=== PATIENT | male | born 1955 | race Caucasian/White ===

== ENCOUNTER 2017-06-20 18:03 | Inpatient (IN) ==
[2017-06-21] MEDS ORDERED: Naloxone 0.4 MG/ML INJ IVP PRN (00:23)
[2017-06-21] MEDS ORDERED: D5% in Water 1,000 ML IVC PRN (00:28)
[2017-06-21] MEDS ORDERED: Dextrose Gel 15 GM PO PRN ×2 (00:28)
[2017-06-21] MEDS ORDERED: *HR* Dextrose 50 % in Water (Syg) 50 ML SYRINGE IVP PRN (00:28)
--- NOTE | 2017-06-21 01:00 | Internal Med History&Physical ---
<Pawan Luu Paco - Last Filed: 06/21/17 01:21> Date of Encounter: 06/21/17 Time of Encounter: 00:10 Assessment and Plan (1) Cellulitis of right lower extremity Current visit: Yes Status: Acute Appearance of right lower extremity consistent with cellulitis, with concern for osteomyelitis X-ray at [facility] shows soft tissue swelling at the dorsum of the foot and around the third toe, with a comminuted fracture of the base of the third proximal phalanx. Concern for osteomyelitis Labs from [facility] reviewed - CBC unremarkable. CMP shows mild hypokalemia at 3.3, but otherwise unremarkable. Kidney function normal Patient is afebrile, no leukocytosis, no crepitus noted Will obtain CT of the right foot for further evaluation Will obtain labs in preparation for possible surgery in the morning, and keep patient nothing by mouth for now Patient received 1 dose of clindamycin, we will continue clindamycin here Patient follows with Dr. Perez - will consult podiatry for further evaluation (2) Osteomyelitis of right foot Current visit: Yes Status: Suspected X-ray concerning for osteomyelitis with a comminuted fracture at the base of the third right proximal phalanx Will obtain CT with contrast for further evaluation Continue antibiotics as above Qualifiers: Osteomyelitis type: other acute Qualified Code(s): M86.171 - Other acute osteomyelitis, right ankle and foot (3) Diabetes mellitus Current visit: Yes Status: Acute Will hold home meds. Low dose sliding scale insulin with accuchecks Qualifiers: Diabetes mellitus type: type 2 Diabetes mellitus long term care phlebotomist insulin use: with fci use Diabetes mellitus complication status: with unspecified complications Qualified Code(s): E11.8 - Type 2 diabetes mellitus with unspecified complications; Z79.4 - bed bug exterminator (current) use of insulin; Z79.4 - snf (current) use of insulin; Z79.4 - snf (current) use of insulin; Z79.4 - bed bug exterminator (current) use of insulin (4) Chronic pain Current visit: Yes Status: Acute Patient reports that he has a spinal stimulator in place. Will continue home dose of [place] as needed Qualifiers: Chronic pain type: other chronic pain Qualified Code(s): G89.29 - Other chronic pain (5) Hypertension Current visit: Yes Status: Acute Normotensive. Continue home meds Qualifiers: Hypertension type: essential hypertension Qualified Code(s): I10 - Essential (primary) hypertension (6) Hypokalemia Current visit: Yes Status: Acute Potassium 3.3. Will replace potassium (7) Tobacco use Current visit: Yes Status: Acute Nicotine patch. Encourage the patient to quit smoking (8) DVT prophylaxis Current visit: Yes Status: Acute No medication at this time with potential surgery in AM Place SCD on left leg Internal Medicine - H&P: HPI Chief complaint: Right toe/foot swelling Admitted From: Hospital to Hospital Transfer History of present illness: Mr. Chauhan is a 61 year old male with PMH of diabetes, hypertension, hyperlipidemia, and chronic pain with spinal stimulator in place, presented to [facility] ED with a one-week history of increasing swelling, redness, and warmth of his right foot and right middle toe. Over the past several days he has been noting some new drainage around his middle toe. He states that it is not very painful. He is able to ambulate well. He denies fevers, chills, leg pain, new numbness/tingling, or prolonged immobilization. He states that about 2 months ago he stepped on a screw that went into the ball of his foot, and he was hospitalized with antibiotics. He reports that his symptoms resolved after that event. He states that he follows with Dr. Perez , and he recommended transfer to [facility] for further management and continuity of care. He denies other symptoms, denies chest pain , dyspnea, cough, abdominal pain, change in bowels, or dysuria. Past Med Surg Social Fam HX - Family History Mother Living Status: Hx Family Cardiac Disorders: Yes Hx Family Endocrine Disorder: Yes (diabetes) Internal Medicine - H&P: Meds Dapagliflozin Propanediol [Farxiga] 5 mg PO DAILY 06/21/17 [History] Famotidine [Heartburn Prevention] 20 mg PO BID 06/21/17 [History] Glimepiride [Amaryl] 4 mg PO DAILY 06/21/17 [History] HYDROcodone/Acet 10/325 mg [[place] 10-325 mg] 10 mg PO Q6HR PRN 06/21/17 [History ] Linagliptin [Tradjenta] 5 mg PO DAILY 06/21/17 [History] Metformin HCl [Glucophage] 1,000 mg PO BID 06/21/17 [History] Simvastatin [Zocor] 20 mg PO HS 06/21/17 [History] amLODIPine [Norvasc] 10 mg PO DAILY 06/21/17 [History] hydroCHLOROthiazide [Hydrochlorothiazide] 25 mg PO DAILY 06/21/17 [History] 3 Allergy/AdvReac Type Severity Reaction Status Date / Time No Known Allergies Allergy Verified 06/21/17 00:51 All Systems PM: A 10-system review of systems was performed and is negative for pertinent findings except as documented above in the HPI. - Constitutional Vitals: Temp Pulse Resp BP Pulse Ox 97.6 F 66 16 124/79 94 06/21/17 00:15 06/21/17 00:15 06/21/17 00:15 06/21/17 00:15 06/21/17 00:15 General appearance: Present: A&O X 3, no acute distress, answers questions appropriately - Head Head exam: Present: atraumatic, normocephalic - Eye Eye exam: Present: EOMI, PERRL, conjuntiva pink, sclera anicteric - Neck Neck exam general surgery: Present: supple, trachea midline. Absent: lymphadenopathy - Respiratory Respiratory exam: Present: wheezes (Mild wheezes in bilateral bases). Absent: accessory muscle use, rales, rhonchi - Cardiovascular Cardiovascular exam: Present: RRR, +S1, +S2. Absent: diastolic murmur, systolic murmur - GI/Abdominal GI/Abdominal exam: Present: normal bowel sounds, soft, no peritoneal signs. Absent: distended, tenderness - Extremities Exam Extremities exam: Present: normal capillary refill, pedal edema, warm, radial pulses palpable and symmetrical. Absent: calf tenderness, cyanotic, normal inspection Additional comments: Right foot and ankle with increased warmth, erythema, and edema, poor skin turgor. There is a yellow/white draining substance around the base of the third right toe, with moist skin. No crepitus noted. Pulses +2/4 bilaterally. Mild edema in left LE as well, but the right LE is worse. - Neurological Exam Neurological exam: Present: CN II-XII intact, oriented X3, no focal deficits. Absent: facial droop, speech deficit - Skin Skin exam: Present: dry, intact <Yordy Mcfadden - Last Filed: 06/21/17 02:23> Date of Encounter: 06/21/17 Internal Medicine - H&P: HPI History of present illness: Mr. Chauhan is a 61 year old male All Systems PM: A 10-system review of systems was performed and is negative for pertinent findings except as documented above in the HPI. - Constitutional Vitals: Temp Pulse Resp BP Pulse Ox 97.6 F 66 16 124/79 94 06/21/17 00:15 06/21/17 00:15 06/21/17 00:15 06/21/17 00:15 06/21/17 00:15 - Attending Attestation I examined this patient and my medical decision-making was reviewed with the Resident Physician. I agree with the documented findings, disposition and treatment plan as described except to the extent set forth below. Patient presents with swelling and redness of the right foot that has been worsening in the past few days. He denies any systemic symptoms such as fever or chills or feeling unwell. He visits with Dr. perez podiatry where he had a previous foot infection before that have been treated. He does have diabetes and takes oral diabetic medicines. He presented to his local ER at [facility] due to his 's concern of persistent swelling needing medical evaluation with podiatry. He was advised to transfer the [facility] for podiatry review by Dr. perez. He had been given IV clindamycin at outside hospital prior to transfer X-ray of the soft tissue at outside hospital found comminuted fracture of the third phalanx on the right concerning for possible osteomyelitis. On review he does have a history of low back pain with nerve damage status post spinal stimulator placement and is unable to get an MRI ROS 14 point review of systems reviewed as best as possible given presentation. Pertinent positive or negative as per HPI or otherwise reviewed as negative General - AAO x 3 Psych - Appropriate affect/speech. No agitation Eyes - OLIVIA. Eye lids intact. No scleral icterus Heart - Sinus. RRR. S1 and S2 present. No added HS/murmurs appreciated. No elevated JVD appreciated. Lung - Adequate air entry b/l, No crackles/wheezes appreciated GI - Soft, non-tender. No hepatosplenomegaly/ascites. BS+ - No CVA/suprapubic tenderness or palpable bladder distension Skin - right foot with swelling, erythema, warmth. A/P Right foot cellulitis Comminuted fracture of the third phalanx on the right concerning for possible osteomyelitis. - consult podiatry to evaluated in the a.m - NPO for now in case surgery is anticipated, otherwise, may feed in the morning - continue IV clindamycin - CT with contrast of leg, IVF for contrast ppx DMII - hold oral agent - ISS for now HTN Tobacco abuse - nicotine patch
[2017-06-21] MEDS: 0.9 % Sodium Chloride 1,000 ML IVC SCH ×2 (01:34→11:54)
[2017-06-21] MEDS: Clindamycin 600 MG/50 ML 600 MG/50 ML IV.SOLN IVPB SCH ×3 (04:01→19:22)
[2017-06-21] MEDS: Insulin LISPRO 300 UNITS/3 ML VIAL SQ SCH ×4 (05:40→23:48)
[2017-06-21 07:20] LABS: INR 1.3; Prothrombin Time 13.8 Seconds (9.4-12.1)
[2017-06-21 07:21] LABS: BUN/Creatinine Ratio 14 (6-26); Blood Urea Nitrogen 9 mg/dL (8-23); Calcium 9.1 mg/dL (8.6-10.3); Carbon Dioxide 27 mEq/L (23-29); Chloride 107 mEq/L (98-107); Glucose 121 mg/dL (70-105); Osmolality,Calculated 290 (280-300); Potassium 3.6 mEq/L (3.5-5.1); Sodium 140 mEq/L (136-145); eGFR For African Americans > 60 (> 60); eGFR For Non-African Americans > 60 (> 60)
[2017-06-21 07:23] LABS: Activated Partial Thrombo Time 34.2 Seconds (26.0-36.0)
[2017-06-21 07:33] LABS: Basophils # 0.1 K/mcL (0.0-0.2); Basophils % 0.9 %; Eosinophils # 0.3 K/mcL (0.0-0.6); Eosinophils % 3.9 %; Hemoglobin 14.5 g/dL (12.9-16.9); Immature Granulocytes % 0.3 % (0-4); Lymphocytes # 1.4 K/mcL (0.6-4.6); Lymphocytes % 18.8 %; Mean Corpuscular HGB Conc 32.2 g/dL (31.6-35.5); Mean Corpuscular Hemoglobin 28.5 pg (28.0-33.3); Mean Corpuscular Volume 88.6 fL (83.0-100.0); Mean Platelet Volume 11.3 fL (9.4-12.4); Monocytes # 0.7 K/mcL (0.0-1.3); Monocytes % 9.3 %; Neutrophils # 4.9 K/mcL (1.6-8.9); Platelet Count 234 K/mcL (140-400); Red Blood Count 5.08 M/mcL (4.19-5.50); Red Cell Distribution Width 14.1 % (11.5-14.5); Segmented Neutrophils % 66.8 %
[2017-06-21] MEDS: Nicotine 21 MG PATCH.TD24 TD SCH (08:18)
[2017-06-21] MEDS: amLODIPine 5 MG TABLET PO SCH (08:19)
[2017-06-21] MEDS: hydroCHLOROthiazide 25 MG TABLET PO SCH (08:19)
[2017-06-21] MEDS: Famotidine 20 MG TABLET PO SCH ×2 (08:19→16:18)
[2017-06-21] MEDS: *HR* HYDROcodone/Acet 10/325 mg TABLET PO PRN ×2 (12:03→19:24)
--- NOTE | 2017-06-21 13:02 | Internal Med Progress Note ---
Date of Encounter: 06/21/17 Time of Encounter: 12:59 - Assessment and plan (1) Abscess of third toe of right foot Current Visit: Yes Status: Acute Assessment and plan: Broad-spectrum IV antibiotics. Consult to podiatry. (2) Cellulitis of right lower extremity Current Visit: Yes Status: Acute Assessment and plan: IV clindamycin to cover MRSA and anaerobes. Check ESR. If no improvement consider adding Zosyn for coverage of pseudomonas. (3) DVT prophylaxis Current Visit: Yes Status: Acute Assessment and plan: He is at high risk for DVT due to infectious/inflammatory process of the right lower extremity. We will provide prophylaxis with Lovenox. (4) Diabetes mellitus Current Visit: Yes Status: Acute Assessment and plan: Insulin sliding scale. Diabetic diet. Hold oral antidiabetics. Qualifiers: Diabetes mellitus type: type 2 Diabetes mellitus assisted insulin use: with assisted use Diabetes mellitus complication status: with unspecified complications Qualified Code(s): E11.8 - Type 2 diabetes mellitus with unspecified complications; Z79.4 - border measurer (current) use of insulin; Z79.4 - custodial (current) use of insulin; Z79.4 - custodial (current) use of insulin; Z79.4 - border measurer (current) use of insulin (5) Hypertension Current Visit: Yes Status: Acute Assessment and plan: Continue amlodipine and HCTZ. Qualifiers: Hypertension type: essential hypertension Qualified Code(s): I10 - Essential (primary) hypertension (6) Tobacco use Current Visit: Yes Status: Acute Assessment and plan: Nicotine replacement therapy. I advised smoking cessation. - Subjective Interval history: Reports 1 week of worsening right foot swelling and pain, for the last 3 days he noted redness extending up the right calf. Denies associated fevers chills numbness. Per patient's he developed a wound in between his toes that started draining a purulent discharge 2 days ago. He was evaluated at the [facility] and transferred to our facility for further care. - Constitutional Vitals: Temp Pulse Resp BP Pulse Ox 97.5 F L 58 16 125/75 93 06/21/17 12:06 06/21/17 12:06 06/21/17 12:06 06/21/17 12:06 06/21/17 12:06 General appearance: Present: A&O X 3, no acute distress, answers questions appropriately - Eye Eye exam: Present: PERRL, conjuntiva pink, sclera anicteric Pupils: Present: PERRL - Respiratory Respiratory exam: Present: CTAB. Absent: accessory muscle use, rales, rhonchi, wheezes - Cardiovascular Cardiovascular exam: Present: RRR, +S1, +S2. Absent: diastolic murmur, gallop, rubs, systolic murmur - GI/Abdominal GI/Abdominal exam: Present: normal bowel sounds, soft, no peritoneal signs. Absent: distended, tenderness - Neurological Exam Neurological exam: Present: CN II-XII intact, oriented X3, no focal deficits. Absent: facial droop, speech deficit - Skin Skin exam: Present: erythema (Right lower extremity erythema and soft tissue edema consistent with cellulitis, right foot dry scaly skin with redness of the forefoot; wound noted between the right second and third toes.) Internal Medicine: Result - Labs CBC & Chem 7: 06/21/17 06:44 06/21/17 06:44 Labs: Short CBC 06/21/17 Range/Units 06:44 WBC 7.4 (4.3-11.1) K/mcL Hgb 14.5 (12.9-16.9) g/dL Hct 45.0 (37.5-50.1) % Plt Count 234 (140-400) K/mcL Neutrophils # 4.9 (1.6-8.9) K/mcL BMP 06/21/17 06:44 Sodium 140 Potassium 3.6 Chloride 107 Carbon Dioxide 27 BUN 9 Creatinine 0.66 L Glucose 121 H Calcium 9.1 - ABG Interpretation ABG results: PT/INR, D-dimer PT 13.8 Seconds (9.4-12.1) H 06/21/17 06:44 Consult Discharge Plan - Plan Referrals: Sona Quezada GASOLINE TESTER [Primary Care Provider] -
--- NOTE | 2017-06-21 14:04 | Podiatry Consult Note ---
Date of Encounter: 06/21/17 Time of Encounter: 13:30 Assessment and Plan (1) Abscess of third toe of right foot Current visit: Yes Status: Acute Assessment: #1 likely abscess third toe right foot secondary to previous puncture wound #2 diabetes with neuropathy #3 multiple comorbidities as outlined in history Plan: #1 recommend incision and drainage cultures debridement of clinically evident abscess of the third toe right foot #2 evaluate plain films ESR #3 recommend incision and drainage deep cultures with possible amputation of third toe depending upon surgical findings at the time of operation. We discussed the risks versus benefits of operation/surgery in terms everyone understood. Risks include but are not limited to loss of toes foot leg or life, need for further surgery, DVT, blood clots. Failure procedure produce desired results. Patient voiced comprehension and had ample opportunity to ask questions about planned procedure and type of anesthetic could be employed. Those questions are answered to his and his satisfaction who was present throughout consultation and treatment. History of Present Illness Chief complaint: Swollen red foot with suspicion of infection HPI: Mr. Chauhan is a 61 year old male, stepped on a screw approximately 3 weeks ago on the plantar aspect of his right foot approximately 3 fingerbreadths proximal to the third toe. Patient was examined treated. Patient within the last 7 days noted significant increase in swelling and redness of the third toe right foot he now presents to [facility] for definitive treatment. His long history of diabetes with peripheral neuropathy with loss of protective sensation from his toes to his tibia bilaterally. He also has significant erythema the dorsal aspect of his right foot just proximal to the third toe. He also has increasing edema of the second toe. He also has edema of the right leg with pretibial erythema possible cellulitis. Fortunately has no chest pain nausea vomiting fever or chills. His white count is normal without left shift. ESR is pending. Reviewed CT scan which indicate fracture of the base the proximal phalanx of possible septic arthrosis of the third toe. Plain films are pending. Past Med Surg Social Fam HX - Past Medical History Medical history: diabetes, hyperlipidemia, hypertension Psychiatric history: no psych history - Past Surgical History Surgical History: no surgical history - Social History Smoking Status: Current every day smoker Packs per day: 1 / Smokeless Tobacco Status: No Alcohol use: none Drug use: none - Family History Mother Living Status: Hx Family Cardiac Disorders: Yes Hx Family Endocrine Disorder: Yes (diabetes) Medications and Allergies Dapagliflozin Propanediol [Farxiga] 5 mg PO DAILY 06/21/17 [History] Famotidine [Heartburn Prevention] 20 mg PO BID 06/21/17 [History] Glimepiride [Amaryl] 4 mg PO DAILY 06/21/17 [History] HYDROcodone/Acet 10/325 mg [[place] 10-325 mg] 10 mg PO Q6HR PRN 06/21/17 [History ] Linagliptin [Tradjenta] 5 mg PO DAILY 06/21/17 [History] Metformin HCl [Glucophage] 1,000 mg PO BID 06/21/17 [History] Simvastatin [Zocor] 20 mg PO HS 06/21/17 [History] amLODIPine [Norvasc] 10 mg PO DAILY 06/21/17 [History] hydroCHLOROthiazide [Hydrochlorothiazide] 25 mg PO DAILY 06/21/17 [History] 3 Allergy/AdvReac Type Severity Reaction Status Date / Time No Known Allergies Allergy Verified 06/21/17 00:51 All Systems Reviewed: The remainder of the systems were reviewed and are negative Physical Exam - Constitutional Vitals: Temp Pulse Resp BP Pulse Ox 97.5 F L 58 16 125/75 93 06/21/17 12:06 06/21/17 12:06 06/21/17 12:06 06/21/17 12:06 06/21/17 12:06 General appearance: cooperative, obese - Extremities Exam Extremities exam: Present: normal capillary refill, pedal edema - Expanded Lower Extremities Exam Lower Leg exam: Present: erythema (Homans sign negative) Foot/Toe exam: Present: erythema, puncture wound (Plantar aspect third metatarsal soft tissue healed over previous puncture wound ) Neuro vascular tendon exam: Present: abnormal 2-point discrimination, decreased fine/light touch (Loss of protective sensation, epicritic sensation and vibratory sensation from toes to tibia bilaterally.), no vascular compromise ( Pedal pulses are readily palpable DP and PT graded 2/4. Skin is warm to touch. No evidence of momo cyanosis of the remaining digits #[id number].. No momo pallor on elevation or rubor on dependency.), sensory deficit Gait: Present: not tested/not observed - Skin Skin exam: Present: cyanosis Additional comments: Observation globally edematous third toe, right foot, approximately 2-3 times a normal girth of the digit. We observe global edema and erythema with superficial blistering and bulla of the webspace and lateral medial aspect of the third toe as well. There is no momo phlegmon as of yet. - Ankle & Foot Appearance ankle: swelling, erythema Foot appearance: swelling, erythema Results - Labs Result Diagrams: 06/21/17 06:44 06/21/17 06:44 Labs: Abnormal lab results PT 13.8 Seconds (9.4-12.1) H 06/21/17 06:44 Creatinine 0.66 mg/dL (0.70-1.30) L 06/21/17 06:44 Glucose 121 mg/dL (70-105) H 06/21/17 06:44 POC Glucose 96 (58-89) H 06/21/17 00:11 H & H 06/21/17 Range/Units 06:44 Hgb 14.5 (12.9-16.9) g/dL Hct 45.0 (37.5-50.1) % All other labs normal. - Diagnostic results Ankle/Foot x-ray: pending Ankle/Foot CT: report reviewed, image reviewed Consult Discharge Plan - Plan Referrals: Sona Quezada, INSURANCE COLLECTOR [Primary Care Provider] -
[2017-06-22] MEDS: Clindamycin 600 MG/50 ML 600 MG/50 ML IV.SOLN IVPB SCH ×4 (03:35→19:58)
[2017-06-22] MEDS: *HR* HYDROcodone/Acet 10/325 mg TABLET PO PRN ×4 (03:37→20:04)
[2017-06-22] MEDS: Insulin LISPRO 300 UNITS/3 ML VIAL SQ SCH ×3 (05:22→18:22)
[2017-06-22] MEDS ORDERED: *HR* Enoxaparin 40 MG/0.4 ML SYRINGE SQ SCH (06:00)
[2017-06-22 06:15] LABS: Basophils # 0.1 K/mcL (0.0-0.2); Basophils % 0.7 %; Eosinophils # 0.3 K/mcL (0.0-0.6); Eosinophils % 3.6 %; Hematocrit 43.1 % (37.5-50.1); Immature Granulocytes % 0.1 % (0-4); Lymphocytes # 1.5 K/mcL (0.6-4.6); Lymphocytes % 22.2 %; Mean Corpuscular HGB Conc 32.5 g/dL (31.6-35.5); Mean Corpuscular Hemoglobin 28.8 pg (28.0-33.3); Mean Corpuscular Volume 88.7 fL (83.0-100.0); Mean Platelet Volume 10.9 fL (9.4-12.4); Monocytes # 0.6 K/mcL (0.0-1.3); Monocytes % 8.8 %; Neutrophils # 4.4 K/mcL (1.6-8.9); Platelet Count 245 K/mcL (140-400); Red Blood Count 4.86 M/mcL (4.19-5.50); Segmented Neutrophils % 64.6 %
[2017-06-22 06:40] LABS: BUN/Creatinine Ratio 11 (6-26); Blood Urea Nitrogen 9 mg/dL (8-23); Calcium 8.8 mg/dL (8.6-10.3); Carbon Dioxide 26 mEq/L (23-29); Chloride 107 mEq/L (98-107); Glucose 145 mg/dL (70-105); Osmolality,Calculated 285 (280-300); Potassium 3.4 mEq/L (3.5-5.1); Sodium 137 mEq/L (136-145); eGFR For African Americans > 60 (> 60); eGFR For Non-African Americans > 60 (> 60)
[2017-06-22] MEDS ORDERED: Bupivacaine/Clonidine Syringe 1 EACH SYRINGE ONE (07:07)
--- NOTE | 2017-06-22 07:07 | Anesthesia Evaluation PreOp ---
Date of Encounter: 06/22/17 Time of Encounter: 07:05 - Past History Planned Operation: I & D 3rd Toe Right Foot Cardiac History: HTN, Hyperlipidemia Pulmonary History: Smoker (40+ years) CERAMIC WORKER History: Other (chronic pain S/P Sc stimulator) Other Medical History: Diabetes Type II Anesthesia History: No Prior Anesthetic Complications, Past Anesthesia Alcohol Use: none Drug use: none Medications and Allergies Dapagliflozin Propanediol [Farxiga] 5 mg PO DAILY 06/21/17 [History] Famotidine [Heartburn Prevention] 20 mg PO BID 06/21/17 [History] Glimepiride [Amaryl] 4 mg PO DAILY 06/21/17 [History] HYDROcodone/Acet 10/325 mg [[employer] 10-325 mg] 10 mg PO Q6HR PRN 06/21/17 [History ] Linagliptin [Tradjenta] 5 mg PO DAILY 06/21/17 [History] Metformin HCl [Glucophage] 1,000 mg PO BID 06/21/17 [History] Simvastatin [Zocor] 20 mg PO HS 06/21/17 [History] amLODIPine [Norvasc] 10 mg PO DAILY 06/21/17 [History] hydroCHLOROthiazide [Hydrochlorothiazide] 25 mg PO DAILY 06/21/17 [History] 3 Allergy/AdvReac Type Severity Reaction Status Date / Time No Known Allergies Allergy Verified 06/21/17 00:51 - Meds/Allergy Pre-op Review Medications Reviewed: Yes Allergies Reviewed: Yes Beta Blockers on Current Med List: No Anesthesia Results - Labs 06/22/17 05:42 06/22/17 05:42 Anesthesia Exam Vital Signs/O2 Sat/Glucose, Most Recent Temp Pulse Resp BP Pulse Ox 98.1 F 61 15 111/71 94 06/22/17 05:15 06/22/17 05:15 06/22/17 05:15 06/22/17 05:15 06/22/17 05:15 Blood Glucose* 137 Height: 6'1''/1.85 m Weight: 288 lbs/130.6 kg NPO (# of Hours): 8 Pain Scale: 0 Pain Scale Used: Numeric (1 - 10) - HEENT Pupil (Motor): EOMI Mallampati: II Teeth: Edentulous Oral Opening: Greater than 3 - CERAMIC WORKER LOC: Oriented CERAMIC WORKER Motor: Normal RUE, Normal LUE, Normal RLE, Normal LLE, Normal Face CERAMIC WORKER Sensory: Normal: RUE, LUE, RLE, LLE, Face - Cardiac Rhythm: Regular Murmur: None - Pulmonary Breath Sounds: bilateral Clear Respiratory Effort: Symmetrical Anesthesia Assess/Plan ASA Score: 3 Modified [place] Scale for Level of Consciousness: Cooperative, oriented, and tranquil Anesthetic Plan: MAC Monitoring Plan: Standard Monitors
[2017-06-22] MEDS ORDERED: Propofol 500 MG/50 ML INFUS..BTL ONE (07:18)
[2017-06-22] MEDS ORDERED: Albuterol 2.5 MG/3 ML NEBULIZER ONE (07:26)
[2017-06-22] MEDS ORDERED: Albuterol 2.5 MG/3 ML NEBULIZER IH ONE (07:27)
[2017-06-22] MEDS ORDERED: *HR* FentaNYL (PF) 100 MCG/2 ML VIAL ONE (08:01)
[2017-06-22] MEDS ORDERED: *HR* Succinylcholine 200 MG/10 ML VIAL IVP ONE (08:02)
[2017-06-22] MEDS ORDERED: Lidocaine -MPF 2% 2 ML VIAL ONE (08:02)
[2017-06-22] MEDS ORDERED: Dexamethasone 4 MG/ML VIAL ONE (08:12)
[2017-06-22] MEDS ORDERED: Ondansetron 4 MG/2 ML VIAL ONE (08:12)
[2017-06-22] MEDS ORDERED: Ketorolac 30 MG/ML VIAL ONE (08:30)
[2017-06-22] MEDS ORDERED: MORPHINE SUL Oral CONC 10 MG/0.5 ML ORAL.SYG SL PRN (08:32)
[2017-06-22] MEDS ORDERED: *HR* OxyCODONE Immed Rel 5 MG TABLET PO PRN (08:32)
--- NOTE | 2017-06-22 09:28 | Anesthesia Evaluation Post Op ---
Date of Encounter: 06/22/17 Time of Encounter: 09:27 - Vital Signs Vital Signs: Vital Signs/O2 Sat, Most Current Temp Pulse Resp BP Pulse Ox 97.5 F L 60 16 94/53 94 06/22/17 09:15 06/22/17 09:15 06/22/17 09:15 06/22/17 09:15 06/22/17 09:15 - Lungs Lungs: Clear Ascult./Percussion - Airway Airway: Non-obstructed - Cardiovascular Regular Rate - Mental Status Mental Status: Alert & Oriented, Answers Appropriately - Pain Pain Scale: 0 Pain Scale used: Numeric (1 - 10) - Nausea Vomiting Nausea Vomiting: Not Present - Hydration Hydration: NPO, Has not voided - Discharge PostOp Status: Transfer Patient to floor
[2017-06-22] MEDS: Famotidine 20 MG TABLET PO SCH ×2 (09:59→16:03)
[2017-06-22] MEDS: hydroCHLOROthiazide 25 MG TABLET PO SCH (09:59)
[2017-06-22] MEDS: amLODIPine 5 MG TABLET PO SCH (09:59)
[2017-06-22] MEDS: Nicotine 21 MG PATCH.TD24 TD SCH (09:59)
--- NOTE | 2017-06-22 10:19 | Orthopedic Operative Note ---
Date of procedure: 06/22/17 Pre-op diagnosis: Suspected abscess third MTPJ right foot Post-op diagnosis: other (No clinical or surgical evidence of abscess or infection with dorsal or plantar aspect of the right foot.) Procedure: 06/22/17 10:14 #1: Incision and drainage of multiple areas right foot Implants: None Anesthesia: RYAN Surgeon: Michael Cramer Was there an early childhood teacher assistant present: No Estimated blood loss (cc): 5 Tourniquet Time (Minutes): 7 Specimen: None Condition: stable Disposition: PACU Procedure in Detail: 06/22/17 10:15 Detail summary of procedure: Patient brought to the surgical suite. A sign in procedure was performed. Patient was transferred to the surgical table. He was then positioned properly safely securely. He underwent smooth induction general anesthesia was achieved per endotracheal means. Right foot was elevated on foam block. A complete roll of cast padding was placed above the malleoli , followed by application ankle tourniquet. Right foot was then prepped and draped in usual sterile manner. Surgical timeout was taken. Leg was elevated for a period of 5 minutes. Tourniquet inflated 250 mmHg for a total of 7 minutes. We noticed obvious edema erythema dorsal aspect isolated over the third toe which is globally edematous. A standard dorsal linear incision was carried out centered over the third MTPJ. Incision was sharply deepened with a #15 scalpel blade down the capsule of the third MTPJ. There is absolutely no evidence of infection or necrosis throughout the incision at any level. Dorsal aspect of the third metatarsal phalangeal joint was noted to be without any evidence of infection or gross pathology. Any small venous structures encountered were bovied as necessary. Attention turned the plantar aspect of the third metatarsal where the previous puncture wound was noted after that healed. A 3 cm incision was made directly over the previous puncture wound. Dissection was continued down to the fascia. No evidence of infection whatsoever. No necrosis. Wound was noted to bleed freely without necessitating use of Bovie ligature. At that juncture the tourniquet was released. Immediate hyperemic response was noted wounds were flushed with copious amounts sterile saline. Wounds were then closed with interrupted sutures of 3-0 Prolene. The wound was dressed with Adaptic 4 x 4's Betadine dry 4 x 4's Kerlix and a Trent wrap from base the toes to tibial tubercle. Patient tolerated procedure and anesthesia and sent to PACU in good condition with vital signs stable. 06/24/17 17:30
--- NOTE | 2017-06-22 10:23 | Internal Med Progress Note ---
Date of Encounter: 06/22/17 Time of Encounter: 10:21 - Assessment and plan (1) Abscess of third toe of right foot Current Visit: Yes Status: Acute Assessment and plan: Status post incision and debridement by podiatry today. Follow-up wound culture. Continue with clindamycin. Monitor clinically. Monitor WBC trend. ESR was 67. (2) Cellulitis of right lower extremity Current Visit: Yes Status: Acute Assessment and plan: IV clindamycin monotherapy to cover MRSA and anaerobes. ESR was 67. (3) DVT prophylaxis Current Visit: Yes Status: Acute Assessment and plan: He is at high risk for DVT due to infectious/inflammatory process of the right lower extremity. We will provide prophylaxis with Lovenox. (4) Diabetes mellitus Current Visit: Yes Status: Acute Assessment and plan: Insulin sliding scale. Diabetic diet. Hold oral antidiabetics. Qualifiers: Diabetes mellitus type: type 2 Diabetes mellitus fdc insulin use: with superintendent marine oil terminal use Diabetes mellitus complication status: with unspecified complications Qualified Code(s): E11.8 - Type 2 diabetes mellitus with unspecified complications; Z79.4 - USP (current) use of insulin; Z79.4 - superintendent marine oil terminal (current) use of insulin; Z79.4 - USP (current) use of insulin; Z79.4 - superintendent marine oil terminal (current) use of insulin (5) Hypertension Current Visit: Yes Status: Acute Assessment and plan: Continue amlodipine and HCTZ. Qualifiers: Hypertension type: essential hypertension Qualified Code(s): I10 - Essential (primary) hypertension (6) Tobacco use Current Visit: Yes Status: Acute Assessment and plan: Nicotine replacement therapy. - Subjective Interval history: Patient had incision and debridement of the right foot under local anesthesia. He tolerated the procedure well. Denies pain in his right foot. Denies chest pain and shortness of breath. Denies cough. - Constitutional Vitals: Temp Pulse Resp BP Pulse Ox 98.6 F 52 16 95/62 92 06/22/17 10:04 06/22/17 10:04 06/22/17 10:04 06/22/17 10:04 06/22/17 10:04 General appearance: Present: A&O X 3, no acute distress, answers questions appropriately - Respiratory Respiratory exam: Present: CTAB. Absent: accessory muscle use, rales, rhonchi, wheezes - Cardiovascular Cardiovascular exam: Present: RRR, +S1, +S2. Absent: diastolic murmur, gallop, rubs, systolic murmur - GI/Abdominal GI/Abdominal exam: Present: normal bowel sounds, soft, no peritoneal signs. Absent: distended, tenderness - Extremities Exam Additional comments: Right foot covered with surgical dressing. Right calf wrapped with gauze. There is dry cracked and scaly skin of the left foot. No open wounds. No rashes. - Skin Skin exam: Present: dry, intact Internal Medicine: Result - Labs CBC & Chem 7: 06/22/17 05:42 06/22/17 05:42 Labs: Short CBC 06/22/17 Range/Units 05:42 WBC 6.9 (4.3-11.1) K/mcL Hgb 14.0 (12.9-16.9) g/dL Hct 43.1 (37.5-50.1) % Plt Count 245 (140-400) K/mcL Neutrophils # 4.4 (1.6-8.9) K/mcL BMP 06/22/17 05:42 Sodium 137 Potassium 3.4 L Chloride 107 Carbon Dioxide 26 BUN 9 Creatinine 0.84 Glucose 145 H Calcium 8.8 - ABG Interpretation ABG results: PT/INR, D-dimer PT 13.8 Seconds (9.4-12.1) H 06/21/17 06:44 - Impressions Impressions Foot CT 06/21/17 01:19 IMPRESSION: Diffuse subcutaneous edema especially to the dorsal foot with more focal subcutaneous edema and soft tissue swelling to the 3rd digit concerning for cellulitis. Elongated focal fluid collection with apparent rim enhancement but without internal gas noted to the medial plantar aspect of the 3rd digit proximally centered at the level of the proximal phalanx and with extension to the level of the 3rd MTP joint. This is in close approximation and appears to extend into a comminuted intra-articular fracture involving 3rd proximal phalangeal base. This may also connect with the 3rd MTP joint and there appears to be a small joint effusion to the 3rd MTP joint. This also appears to be intimately associated with the flexor tendons to the 3rd digit. Differential considerations would include abscess and/or infected tenosynovitis. No bony erosions or destructive changes are seen, but with the above findings the fracture to the proximal phalanx could be pathologic relating to potential osteomyelitis. Also given the potential connection with the 3rd MTP joint septic arthritis is of concern. Degenerative changes to the foot as above. The findings were sent to the [facility] at 12:59 pm on 06/21/2017to be communicated to a licensed caregiver. D/ / 06/21/2017 13:03:35 Severiano Daley MD / [email or web address] Interpreting Provider: Severiano Daley MD Foot X-Ray 06/21/17 13:17 IMPRESSION: 1. Acute, comminuted, articular fracture medial base proximal phalanx right middle toe with laterally displaced and medial displaced components. 2. Diffuse edema about the right forefoot and midfoot. Correlate with CT foot findings from earlier today. 3. Enthesophytes are seen at the insertion of Achilles tendon and origin of the plantar fascia related to the calcaneus. 4. No new osseous abnormality is evident. D/ / Clemente Momin / Clemente Momin Interpreting Provider: Clemente Momin - VTE Documentation of Mechanical Device: Intermittent pneumatic compression device Consult Discharge Plan - Plan Referrals: Sona Quezada, [employer] BANK LABORATORY TECHNOLOGIST [Primary Care Provider] -
[2017-06-22] MEDS ORDERED: Naloxone 0.4 MG/ML INJ IVP PRN (19:45)
[2017-06-22] MEDS ORDERED: D5% in Water 1,000 ML IVC PRN (19:45)
[2017-06-22] MEDS ORDERED: *HR* Dextrose 50 % in Water (Syg) 50 ML SYRINGE IVP PRN (19:45)
[2017-06-22] MEDS ORDERED: Dextrose Gel 15 GM PO PRN ×2 (19:45)
[2017-06-23] MEDS: *HR* HYDROcodone/Acet 10/325 mg TABLET PO PRN ×3 (03:36→20:05)
[2017-06-23] MEDS: Clindamycin 600 MG/50 ML 600 MG/50 ML IV.SOLN IVPB SCH ×3 (03:36→19:54)
[2017-06-23] MEDS: *HR* Enoxaparin 40 MG/0.4 ML SYRINGE SQ SCH (04:53)
[2017-06-23 06:31] LABS: Basophils % 0.5 %; Eosinophils # 0.1 K/mcL (0.0-0.6); Eosinophils % 1.5 %; Hematocrit 43.5 % (37.5-50.1); Hemoglobin 14.4 g/dL (12.9-16.9); Immature Granulocytes % 0.2 % (0-4); Lymphocytes # 1.5 K/mcL (0.6-4.6); Lymphocytes % 17.7 %; Mean Corpuscular HGB Conc 33.1 g/dL (31.6-35.5); Mean Corpuscular Hemoglobin 29.1 pg (28.0-33.3); Mean Corpuscular Volume 87.9 fL (83.0-100.0); Mean Platelet Volume 11.1 fL (9.4-12.4); Monocytes # 0.7 K/mcL (0.0-1.3); Monocytes % 8.3 %; Platelet Count 225 K/mcL (140-400); Red Blood Count 4.95 M/mcL (4.19-5.50); Red Cell Distribution Width 13.7 % (11.5-14.5); Segmented Neutrophils % 71.8 %
[2017-06-23 06:44] LABS: BUN/Creatinine Ratio 13 (6-26); Blood Urea Nitrogen 11 mg/dL (8-23); Calcium 9.1 mg/dL (8.6-10.3); Carbon Dioxide 27 mEq/L (23-29); Chloride 105 mEq/L (98-107); Glucose 166 mg/dL (70-105); Osmolality,Calculated 289 (280-300); Potassium 3.7 mEq/L (3.5-5.1); Sodium 138 mEq/L (136-145); eGFR For African Americans > 60 (> 60); eGFR For Non-African Americans > 60 (> 60)
[2017-06-23] MEDS: Insulin LISPRO 300 UNITS/3 ML VIAL SQ SCH ×5 (07:30→16:03)
[2017-06-23] MEDS: Nicotine 21 MG PATCH.TD24 TD SCH (07:30)
[2017-06-23] MEDS: amLODIPine 5 MG TABLET PO SCH (07:30)
[2017-06-23] MEDS: Famotidine 20 MG TABLET PO SCH ×2 (07:30→16:03)
[2017-06-23] MEDS: hydroCHLOROthiazide 25 MG TABLET PO SCH (07:30)
--- NOTE | 2017-06-23 07:54 | Internal Med Progress Note ---
Date of Encounter: 06/23/17 Time of Encounter: 07:54 - Assessment and plan (1) Abscess of third toe of right foot Current Visit: Yes Status: Acute Assessment and plan: Status post incision and debridement by podiatry POD 1. Favorable postoperative course. We will continue postoperative care. PT OT. Follow-up wound culture. Continue with clindamycin. WBC 8.4 today. Patient remains afebrile. (2) Cellulitis of right lower extremity Current Visit: Yes Status: Acute Assessment and plan: Continue IV clindamycin monotherapy to cover MRSA and anaerobes. Continue to monitor clinically (3) DVT prophylaxis Current Visit: Yes Status: Acute Assessment and plan: He is at high risk for DVT due to recent surgery of the right lower extremity. We will continue prophylaxis with Lovenox. (4) Diabetes mellitus Current Visit: Yes Status: Acute Assessment and plan: Insulin sliding scale. Diabetic diet. Hold oral antidiabetics. Blood glucose over the last 24 hours ranging from 137 2 292. We will add pre-meal bolus insulin. Qualifiers: Diabetes mellitus type: type 2 Diabetes mellitus [facility] insulin use: with office director use Diabetes mellitus complication status: with unspecified complications Qualified Code(s): E11.8 - Type 2 diabetes mellitus with unspecified complications; Z79.4 - grain combine driver (current) use of insulin; Z79.4 - grain combine driver (current) use of insulin; Z79.4 - grain combine driver (current) use of insulin; Z79.4 - grain combine driver (current) use of insulin (5) Hypertension Current Visit: Yes Status: Acute Assessment and plan: Continue amlodipine and HCTZ. Blood pressure is well-controlled today. Qualifiers: Hypertension type: essential hypertension Qualified Code(s): I10 - Essential (primary) hypertension (6) Tobacco use Current Visit: Yes Status: Acute Assessment and plan: Nicotine replacement therapy. Emphasized the health benefits of smoking cessation. Patient is in the contemplating phase. - Subjective Interval history: 06/23/2017: Patient is status post I&D of the right foot postoperative day one. Pain in the right foot as 0/10. Denies calf pain. Has no associated subjective fever. 06/22/2017: Patient had incision and debridement of the right foot under local anesthesia. He tolerated the procedure well. Denies pain in his right foot. Denies chest pain and shortness of breath. Denies cough. - Constitutional Vitals: Temp Pulse Resp BP Pulse Ox 97.4 F L 55 18 132/85 98 06/23/17 06:36 06/23/17 06:36 06/23/17 06:36 06/23/17 06:36 06/23/17 06:36 General appearance: Present: A&O X 3, no acute distress, answers questions appropriately - Respiratory Respiratory exam: Present: CTAB. Absent: accessory muscle use, rales, rhonchi, wheezes - Cardiovascular Cardiovascular exam: Present: RRR, +S1, +S2. Absent: diastolic murmur, gallop, rubs, systolic murmur - GI/Abdominal GI/Abdominal exam: Present: normal bowel sounds, soft, no peritoneal signs. Absent: distended, tenderness - Extremities Exam Additional comments: Right foot and distal graft and compressive dressing. Left foot plantar aspect with dry scaly and cracked skin. - Skin Skin exam: Present: dry, intact Internal Medicine: Result - Labs CBC & Chem 7: 06/23/17 05:53 06/23/17 05:53 Labs: Short CBC 06/23/17 Range/Units 05:53 WBC 8.4 (4.3-11.1) K/mcL Hgb 14.4 (12.9-16.9) g/dL Hct 43.5 (37.5-50.1) % Plt Count 225 (140-400) K/mcL Neutrophils # 6.0 (1.6-8.9) K/mcL BMP 06/23/17 05:53 Sodium 138 Potassium 3.7 Chloride 105 Carbon Dioxide 27 BUN 11 Creatinine 0.84 Glucose 166 H Calcium 9.1 - ABG Interpretation ABG results: PT/INR, D-dimer PT 13.8 Seconds (9.4-12.1) H 06/21/17 06:44 - VTE Documentation of Mechanical Device: Intermittent pneumatic compression device Consult Discharge Plan - Plan Referrals: Sona Quezada CNP [Primary Care Provider] -
[2017-06-23] MEDS ORDERED: Insulin LISPRO 300 UNITS/3 ML VIAL SQ SCH ×2 (21:00)
[2017-06-24] MEDS: *HR* Enoxaparin 40 MG/0.4 ML SYRINGE SQ SCH (04:36)
[2017-06-24] MEDS: Clindamycin 600 MG/50 ML 600 MG/50 ML IV.SOLN IVPB SCH ×2 (04:36→12:40)
[2017-06-24] MEDS: *HR* HYDROcodone/Acet 10/325 mg TABLET PO PRN (07:09)
[2017-06-24 07:25] LABS: Basophils # 0.1 K/mcL (0.0-0.2); Basophils % 0.9 %; Eosinophils # 0.3 K/mcL (0.0-0.6); Eosinophils % 3.3 %; Hematocrit 46.3 % (37.5-50.1); Hemoglobin 15.1 g/dL (12.9-16.9); Immature Granulocytes % 0.3 % (0-4); Lymphocytes # 2.3 K/mcL (0.6-4.6); Lymphocytes % 29.5 %; Mean Corpuscular HGB Conc 32.6 g/dL (31.6-35.5); Mean Corpuscular Hemoglobin 28.9 pg (28.0-33.3); Mean Corpuscular Volume 88.5 fL (83.0-100.0); Mean Platelet Volume 10.7 fL (9.4-12.4); Monocytes # 0.6 K/mcL (0.0-1.3); Monocytes % 7.8 %; Neutrophils # 4.5 K/mcL (1.6-8.9); Platelet Count 251 K/mcL (140-400); Red Blood Count 5.23 M/mcL (4.19-5.50); Red Cell Distribution Width 13.8 % (11.5-14.5); Segmented Neutrophils % 58.2 %
[2017-06-24 07:32] LABS: BUN/Creatinine Ratio 14 (6-26); Blood Urea Nitrogen 12 mg/dL (8-23); Calcium 9.1 mg/dL (8.6-10.3); Carbon Dioxide 27 mEq/L (23-29); Chloride 105 mEq/L (98-107); Glucose 139 mg/dL (70-105); Osmolality,Calculated 286 (280-300); Potassium 3.6 mEq/L (3.5-5.1); Sodium 137 mEq/L (136-145); eGFR For African Americans > 60 (> 60); eGFR For Non-African Americans > 60 (> 60)
[2017-06-24] MEDS: amLODIPine 5 MG TABLET PO SCH (08:05)
[2017-06-24] MEDS: hydroCHLOROthiazide 25 MG TABLET PO SCH (08:05)
[2017-06-24] MEDS: Famotidine 20 MG TABLET PO SCH (08:05)
[2017-06-24] MEDS: Nicotine 21 MG PATCH.TD24 TD SCH (08:06)
[2017-06-24] MEDS: Insulin LISPRO 300 UNITS/3 ML VIAL SQ SCH ×4 (08:06→12:28)
--- NOTE | 2017-06-24 12:48 | Discharge Summary ---
Date of Encounter: 06/24/17 Time of Encounter: 12:45 - Discharge Diagnosis (1) Abscess of third toe of right foot Priority: Secondary Status: Ruled-out Comments: I&D of the right foot showed no evidence of infected fluid collection. (2) Cellulitis of right lower extremity Priority: Primary Status: Acute (3) DVT prophylaxis Priority: Secondary Status: Acute (4) Diabetes mellitus Priority: Secondary Status: Acute Qualifiers: Diabetes mellitus type: type 2 Diabetes mellitus custodial insulin use: with custodial use Diabetes mellitus complication status: with unspecified complications Qualified Code(s): E11.8 - Type 2 diabetes mellitus with unspecified complications; Z79.4 - watermaster (current) use of insulin; Z79.4 - watermaster (current) use of insulin; Z79.4 - watermaster (current) use of insulin; Z79.4 - senior care (current) use of insulin (5) Hypertension Priority: Secondary Status: Acute Qualifiers: Hypertension type: essential hypertension Qualified Code(s): I10 - Essential (primary) hypertension (6) Tobacco use Priority: Secondary Status: Acute Hospital course: Mr. Chauhan is a 61 year old male with past medical history significant for diabetes, hypertension, hyperlipidemia who presented to the hospital for evaluation of redness, swelling and warmth of his right foot going up into his right calf. He was diagnosed with diabetes foot infection and right lower extremity cellulitis, presumed abscess of the right foot and was admitted to the medical service. He was started on treatment with IV clindamycin. Podiatry was consulted. He had an I&D of the right foot which found no overt evidence of infection. He tolerated the procedure well. He had a favorable postoperative course. We continued treatment with IV clindamycin. He was evaluated by PT OT deemed stable for discharge home. He will follow-up with podiatry in the office. I have counseled him extensively regarding smoking cessation. He was advised to follow-up with PCP in one week. He will be discharged with 5 more days of oral clindamycin. Discharge discussed with: patient, family, nurse Time spent discussing smoking cessation with patient: 3 to 10 minutes - Time Spent with Patient Total time spent providing and/or coordinating discharge services: Greater than 30 minutes - Discharge Medications Prescriptions: Clindamycin HCl [Cleocin HCl] 300 mg PO TID #30 cap Home Medications: Dapagliflozin Propanediol [Farxiga] 5 mg PO DAILY 06/21/17 [History] Famotidine [Heartburn Prevention] 20 mg PO BID 06/21/17 [History] Glimepiride [Amaryl] 4 mg PO DAILY 06/21/17 [History] HYDROcodone/Acet 10/325 mg [Crescent 10-325 mg] 10 mg PO Q6HR PRN 06/21/17 [History ] Linagliptin [Tradjenta] 5 mg PO DAILY 06/21/17 [History] Metformin HCl [Glucophage] 1,000 mg PO BID 06/21/17 [History] Simvastatin [Zocor] 20 mg PO HS 06/21/17 [History] amLODIPine [Norvasc] 10 mg PO DAILY 06/21/17 [History] hydroCHLOROthiazide [Hydrochlorothiazide] 25 mg PO DAILY 06/21/17 [History] Clindamycin HCl [Cleocin HCl] 300 mg PO TID #30 cap 06/24/17 [Rx] Allergies/Adverse Reactions: 3 Allergy/AdvReac Type Severity Reaction Status Date / Time No Known Allergies Allergy Verified 06/21/17 00:51 Date of admission: 06/20/17 23:52 Primary care physician: Raissa Ennis Consults: 06/21/17 01:36 Consult to Podiatry [CONS] Routine Consulting Provider: [facility] Reason for Consult: Right leg cellulitis with concern for osteomyelitis. Follows with Dr. Irby. Call Completed: No 06/24/17 08:57 Consult to Physical Therapy [CONS] Routine Comment: Evaluate, develop and implement POC Reason for Consult: eval Does patient have active BEDREST order?: No Is patient medically & hemodynamically stable?: Yes - Constitutional Vitals: Temp Pulse Resp BP Pulse Ox 97.6 F 53 18 146/89 94 06/24/17 10:50 06/24/17 10:50 06/24/17 10:50 06/24/17 10:50 06/24/17 10:50 General appearance: Present: A&O X 3, no acute distress, answers questions appropriately - Respiratory Respiratory exam: Present: CTAB. Absent: accessory muscle use, rales, rhonchi, wheezes - Cardiovascular Cardiovascular exam: Present: RRR, +S1, +S2. Absent: diastolic murmur, gallop, rubs, systolic murmur - GI/Abdominal GI/Abdominal exam: Present: normal bowel sounds, soft, no peritoneal signs. Absent: distended, tenderness - Patient Status Disposition: Home, Self-Care Condition: Good Functional capacity at discharge: uses cane/walker Overall status at discharge: patient is progressing back to baseline - Discharge Instructions Follow Up With: Sona Quezada CNP [Primary Care Provider] - Michael Cramer DPM [Partnered Physician] - Additional Instructions: Follow-up with Dr. Zhu's office and 1-2 weeks. Follow-up with PCP within 1 week of discharge. You had been prescribed 5 days of oral antibiotic. Take 2 capsules 3 times daily. If you notice abundant liquid diarrhea please call your physician right away as this could be a serious complication of the antibiotic treatment. - Diet and Activity Activity: increase activity as tolerated Diet: diabetic diet, low fat, low cholesterol, low salt diet - VTE Documentation of Mechanical Device: Intermittent pneumatic compression device
--- NOTE | 2017-06-24 13:31 | Podiatry Progress Note ---
Date of Encounter: 06/24/17 Time of Encounter: 12:45 - Assessment and Plan (1) Cellulitis of right lower extremity Status: Acute S/p Incision and drainage of multiple areas right foot by Dr. Cramer on 06/22/17. WBC: 7.7 Cellulitis resolving, incisions lines healing uneventfully. Plan: Dressing changed at bedside, leave dry and intact until follow up appointment in clinic. Remain protective weight bearing to the right foot with cam boot. Follow up in Podiatry Clinic with Jayjay Glover CNP 1 week after discharge from the hospital. (2) Diabetes mellitus Status: Acute Qualifiers: Diabetes mellitus type: type 2 Diabetes mellitus fpc insulin use: with fpc use Diabetes mellitus complication status: with unspecified complications Qualified Code(s): E11.8 - Type 2 diabetes mellitus with unspecified complications; Z79.4 - superintendent marine oil [employer] (current) use of insulin; Z79.4 - longterm (current) use of insulin; Z79.4 - longterm (current) use of insulin; Z79.4 - longterm (current) use of insulin Subjective Interval history: Patient is s/p incision and drainage of multiple areas right foot by Dr. Cramer on 06/22/17. Patient is sitting up in bed with spouse at bedside. Patient denies any pain currently. No c/o fever, chills, cp, sob or flu like symptoms. Objective - Vital Signs Vital Signs: Vital Signs Temp Pulse Resp BP Pulse Ox 06/24/17 10:50 97.6 F 53 18 146/89 94 06/24/17 06:27 97.7 F 60 18 147/88 93 06/24/17 03:58 97.8 F 58 16 146/85 93 06/23/17 23:35 97.8 F 56 16 144/83 93 06/23/17 18:47 97.6 F 60 18 148/87 93 06/23/17 14:34 97.4 F L 78 18 132/80 96 Intake and Output 06/23/17 06/24/17 06/24/17 23:59 07:59 15:59 Intake Total 50 / 50 290 / 290 1080 / 1080 Balance 50 / 50 290 / 290 1080 / 1080 Intake: IV Fluids 50 / 50 50 / 50 Cleocin Premix 600 MG/50 ML 600 50 / 50 50 / 50 mg In 50 ml @ 50 mls/hr IVPB Q[facility]H [facility] Rx#:[id number] Oral 240 / 240 1080 / 1080 Other: Meal Lunch Percent of Meal Consumed 100% # Voids 2 3 Blood Glucose* 204 145 189 - Exam Exam: General appearance: alert awake oriented X 3. Calm and pleasant, no acute distress.. Vascular: Pedal pulses +2/4 DP/PT , No evidence of cyanosis, pallor or rubor, Edema graded at 1+/4, Skin Temperature warm, No calf pain with manual compression. capillary refill time is immediate to digits. Neurologic: Sensation intact with light touch to foot. . Postop Exam: S/P Sutures intact to incision line, no signs of dehiscence. Mild erythema, no open area, no drainage, no odor, no streaking. Minimal edema. - Lab Result Diagrams: 06/24/17 06:52 06/24/17 06:52 Labs: Abnormal lab results ESR 67 mm/hr (0-10) H 06/21/17 13:46 PT 13.8 Seconds (9.4-12.1) H 06/21/17 06:44 Glucose 139 mg/dL (70-105) H 06/24/17 06:52 POC Glucose 189 (58-89) H 06/24/17 11:15 - VTE Documentation of Mechanical Device: Intermittent pneumatic compression device Consult Discharge Plan - Plan Instructions: Clindamycin (By mouth) Additional Instructions: Follow-up with Dr. Zhu's office and 1-2 weeks. Follow-up with PCP within 1 week of discharge. You had been prescribed 5 days of oral antibiotic. Take 2 capsules 3 times daily. If you notice abundant liquid diarrhea please call your physician right away as this could be a serious complication of the antibiotic treatment. Please keep dressing clean and dry. Please call Dr. Cramer's office with any concerning symptoms. Follow-up appointments: If there is not an appointment listed below, please call your physician and schedule a follow-up appointment. If you have congestive heart failure and your symptoms return, make an appointment with your physician. Medication List: Carry an up to date list of medications you are taking at all time. We have given you an updated medication list including any new medications that you have been prescribed. Please provide that list to your primary provider Symptoms: If your condition changes or you experience any of the following symptoms, notify your physician immediately: Unusual or worsening pain, fever, persistent nausea and vomiting, bleeding, increase in swelling (especially in your legs), sudden weight gain, extreme dizziness, chest pain, increased drainage or redness from a wound or incision. Go to the emergency department if you experience a problem with breathing. Weights: If you have a history of swelling or shortness of breath, weigh yourself daily and notify your physician if you have a weight gain of two or more pounds in one day or 5 or more pounds in a week. If you experience any of the warning signs for stroke: Sudden numbness or weakness of the face, arm or leg; especially on one side of the body, sudden confusion, trouble speaking or understanding, sudden trouble seeing in one or both eyes, sudden trouble walking, dizziness, loss of balance or coordination, sudden sever headache with no cause; Call 911 or go to the emergency room. Stroke is a medical emergency. Some risk factors for stroke: Age, cigarette smoking, diabetes, excessive alcohol consumption, family history , high blood pressure, overweight, physical inactivity, prior stroke, heart attack, diagnosis of carotid artery stenosis or other artery disease. If you smoke, STOP: Smoking or tobacco use significantly increases your risk of heart and lung disease. Your chance of disease greatly increases if you continue to smoke. For more information, call the [place] tobacco quit line for smoking cessation QUIT-NOW ( ) Referrals: Michael Cramer DPM [Partnered Physician] - (Please follow up in the wound clinic in 5 days.) Sona Quezada CNP [Primary Care Provider] - 06/26/17 1:00 pm Prescriptions: Clindamycin HCl [Cleocin HCl] 300 mg PO TID #30 cap
--- NOTE | 2017-06-24 14:34 | Internal Med Progress Note ---
Date of Encounter: 06/24/17 - Assessment and plan (1) Abscess of third toe of right foot Current Visit: Yes Status: Ruled-out (2) Cellulitis of right lower extremity Current Visit: Yes Status: Acute (3) DVT prophylaxis Current Visit: Yes Status: Acute (4) Diabetes mellitus Current Visit: Yes Status: Acute Qualifiers: Diabetes mellitus type: type 2 Diabetes mellitus detention insulin use: with bridge repairer use Diabetes mellitus complication status: with unspecified complications Qualified Code(s): E11.8 - Type 2 diabetes mellitus with unspecified complications; Z79.4 - acoustic intelligence specialist (current) use of insulin; Z79.4 - FDC (current) use of insulin; Z79.4 - acoustic intelligence specialist (current) use of insulin; Z79.4 - acoustic intelligence specialist (current) use of insulin (5) Hypertension Current Visit: Yes Status: Acute Qualifiers: Hypertension type: essential hypertension Qualified Code(s): I10 - Essential (primary) hypertension (6) Tobacco use Current Visit: Yes Status: Acute - Subjective Interval history: 06/23/2017: Patient is status post I&D of the right foot postoperative day one. Pain in the right foot as 0/10. Denies calf pain. Has no associated subjective fever. 06/22/2017: Patient had incision and debridement of the right foot under local anesthesia. He tolerated the procedure well. Denies pain in his right foot. Denies chest pain and shortness of breath. Denies cough. - Constitutional Vitals: Temp Pulse Resp BP Pulse Ox 97.6 F 53 18 146/89 94 06/24/17 10:50 06/24/17 10:50 06/24/17 10:50 06/24/17 10:50 06/24/17 10:50 General appearance: Present: A&O X 3, no acute distress, answers questions appropriately Internal Medicine: Result - Labs CBC & Chem 7: 06/24/17 06:52 06/24/17 06:52 Labs: Short CBC 06/24/17 Range/Units 06:52 WBC 7.7 (4.3-11.1) K/mcL Hgb 15.1 (12.9-16.9) g/dL Hct 46.3 (37.5-50.1) % Plt Count 251 (140-400) K/mcL Neutrophils # 4.5 (1.6-8.9) K/mcL BMP 06/24/17 06:52 Sodium 137 Potassium 3.6 Chloride 105 Carbon Dioxide 27 BUN 12 Creatinine 0.84 Glucose 139 H Calcium 9.1 - ABG Interpretation ABG results: PT/INR, D-dimer PT 13.8 Seconds (9.4-12.1) H 06/21/17 06:44 - VTE Documentation of Mechanical Device: Intermittent pneumatic compression device Consult Discharge Plan - Plan Instructions: Clindamycin (By mouth) Additional Instructions: Follow-up with Dr. Zhu's office and 1-2 weeks. Follow-up with PCP within 1 week of discharge. You had been prescribed 5 days of oral antibiotic. Take 2 capsules 3 times daily. If you notice abundant liquid diarrhea please call your physician right away as this could be a serious complication of the antibiotic treatment. Please keep dressing clean and dry. Please call Dr. Cramer's office with any concerning symptoms. Follow-up appointments: If there is not an appointment listed below, please call your physician and schedule a follow-up appointment. If you have congestive heart failure and your symptoms return, make an appointment with your physician. Medication List: Carry an up to date list of medications you are taking at all time. We have given you an updated medication list including any new medications that you have been prescribed. Please provide that list to your primary provider Symptoms: If your condition changes or you experience any of the following symptoms, notify your physician immediately: Unusual or worsening pain, fever, persistent nausea and vomiting, bleeding, increase in swelling (especially in your legs), sudden weight gain, extreme dizziness, chest pain, increased drainage or redness from a wound or incision. Go to the emergency department if you experience a problem with breathing. Weights: If you have a history of swelling or shortness of breath, weigh yourself daily and notify your physician if you have a weight gain of two or more pounds in one day or 5 or more pounds in a week. If you experience any of the warning signs for stroke: Sudden numbness or weakness of the face, arm or leg; especially on one side of the body, sudden confusion, trouble speaking or understanding, sudden trouble seeing in one or both eyes, sudden trouble walking, dizziness, loss of balance or coordination, sudden sever headache with no cause; Call 911 or go to the emergency room. Stroke is a medical emergency. Some risk factors for stroke: Age, cigarette smoking, diabetes, excessive alcohol consumption, family history , high blood pressure, overweight, physical inactivity, prior stroke, heart attack, diagnosis of carotid artery stenosis or other artery disease. If you smoke, STOP: Smoking or tobacco use significantly increases your risk of heart and lung disease. Your chance of disease greatly increases if you continue to smoke. For more information, call the [place] tobacco quit line for smoking cessation 0-188- -NOW ( ) Referrals: Michael Cramer DPM [Partnered Physician] - (Please follow up in the wound clinic in 5 days.) Sona Quezada ESTHETIC DERMATOLOGIST [Primary Care Provider] - 06/26/17 1:00 pm Prescriptions: Clindamycin HCl [Cleocin HCl] 300 mg PO TID #30 cap
[2017-06-24 14:46] VITALS: BP 143/80
== END 2017-06-24 15:54 | disposition home or self-care (01) | DRG 581 ==
LOC: 3NENU 23:52 → SUATTDRO 23:52
PROVIDERS: ADMIT Nurse Practitioner; ATTEND Internal Medicine

== ENCOUNTER 2017-11-20 13:23 | Inpatient (IN) ==
[2017-11-20] MEDS ORDERED: Isovue-370 500 ML INFUS..BTL IV ONE ×2 (15:00)
[2017-11-20] MEDS ORDERED: Isovue-370 500 ML INFUS..BTL PO ONE (15:21)
[2017-11-26] MEDS ORDERED: 0.9 % Sodium Chloride 500 ML IVC ONE ×2 (22:38→23:00)
[2017-11-26] MEDS ORDERED: 0.9 % Sodium Chloride 500 ML ONE (22:53)
[2017-11-26] MEDS ORDERED: Naloxone 0.4 MG/ML INJ IVP PRN (23:12)
[2017-11-26] MEDS ORDERED: 0.9 % Sodium Chloride 1,000 ML IVC SCH ×2 (23:15)
[2017-11-26] MEDS ORDERED: Nicotine 21 MG PATCH.TD24 TD SCH ×2 (23:30)
--- NOTE | 2017-11-26 23:32 | Internal Med History&Physical ---
Date of Encounter: 11/27/17 Time of Encounter: 23:30 Internal Medicine - H&P: HPI Chief complaint: Fatigue/Weakness/Malaise History of present illness: Mr. Chauhan is a 62 year old male with a past medical history of COPD, chronic low back pain status post stimulator placement, hypertension, hyperlipidemia, diabetes among others who was recently hospitalized in September 2017 due to ongoing weight loss, nausea and vomiting for the past several months. A CT scan was recently performed at [facility] which showed a mass at the head of the pancreas suspicious for malignancy with complete encasement of the superior mesenteric artery without evidence of thrombosis. Patient underwent ERCP and biliary stent placement. Fine-needle aspiration was performed with findings consistent with pancreatic adenocarcinoma. Patient was seen by his oncologist on November 25 and underwent his first cycle of gemcitbine and abraxane. He reports no acute events after receiving his first cycle. However when he awoke this morning he began having chills and shakes. His checked his blood sugar due to concern of hypoglycemia and found his blood sugar to be elevated greater than 300. She contacted the oncologist nurse who recommended the patient go to the ED for further evaluation. Patient otherwise states he was feeling fine until this morning. In addition to his chills he has been feeling weak and fatigued. His noticed that he was somewhat disoriented. A CT scan of the head at [facility] was performed which was negative for any acute findings. Patient reports vomiting this morning in addition to 2 episodes of loose watery diarrhea. Patient otherwise no denies any new abdominal pain, chest pain, dyspnea. Repeat labs were performed upon arrival to [facility]. Findings were significant for an elevated white blood cell count of 12.1, an elevated total bilirubin of 10 associated with transaminitis and a lactic acid of greater than 4. Patient was mildly hypotensive with a blood pressure in the upper 80s systolic. Patient reportedly had received IV fluids at [facility]. Upon initial assessment patient was alert and oriented 3, not in acute distress complaining of only mild abdominal pain. Past Med Surg Social Fam HX - Past Medical History Medical history: diabetes, hyperlipidemia, hypertension Additional medical history: chronic back pain Psychiatric history: no psych history - Past Surgical History Surgical History: other Additional surgical history: Weekend surgery I &D by Dr. Cramer. Spinal Stimulator - Social History Smoking Status: Current every day smoker Packs per day: 1 Smokeless Tobacco Status: No Alcohol use: none Drug use: none - Family History Mother Adopted: No Twin of Family Member: Yes, Fraternal Living Status: Hx Family Cardiac Disorders: No Hx Family Respiratory Disorders: No Hx Family GI Disorders: No Hx Family Endocrine Disorder: Yes Hx Family Neuromuscular Disorders: No Hx Family Neurologic Disorders: No Hx Family HEENT Disorders: No Hx Family Autoimmune Disorders: No Paternal Grandmother Living Status: Hx Family Cardiac Disorders: Yes Hx Family Respiratory Disorders: No Hx Family Cancer: No Hx Family GI Disorders: No Hx Family Endocrine Disorder: Yes Hx Family Neuromuscular Disorders: No Hx Family Neurologic Disorders: No Hx Family HEENT Disorders: No Hx Family Autoimmune Disorders: No Maternal Grandmother Name: Mervta Chauhan Living Status: Age at : 79 Hx Family Cardiac Disorders: Yes Hx Family Endocrine Disorder: Yes Maternal Grandfather Name: Vinod Chauhan Living Status: Age at : 81 Cause of : Prostate Cancer Hx Family Cardiac Disorders: Yes Hx Family Cancer: Yes (Prostate Cancer) Brother Name: Casey San Living Status: Age at : 55 Hx Family Respiratory Disorders: Yes (COPD) Hx Family Cancer: Yes (Lung) Sister Name: Jody Living Status: Age at : 53 Cause of : Lung Cancer Hx Family Respiratory Disorders: Yes (COPD) Hx Family Cancer: Yes (Lung Cancer) Hx Family Endocrine Disorder: Yes (Diabetes) Internal Medicine - H&P: Meds Famotidine [Heartburn Prevention] 20 mg PO BID 06/21/17 [History] Linagliptin [Tradjenta] 5 mg PO DAILY 06/21/17 [History] Metformin HCl [Glucophage] 1,000 mg PO BID 06/21/17 [History] Simvastatin [Zocor] 20 mg PO HS 06/21/17 [History] amLODIPine [Norvasc] 10 mg PO DAILY 06/21/17 [History] hydroCHLOROthiazide [Hydrochlorothiazide] 25 mg PO DAILY 06/21/17 [History] Alogliptin Benzoate [Alogliptin] 25 mg PO DAILY 11/06/17 [History] HYDROcodone/Acet 10/325 mg [[place] 10-325 mg] 1 tab PO Q6H PRN 11/07/17 [History] Potassium Chloride [K-Tab ER] 20 meq PO AD #36 tablet.er 11/10/17 [Rx] Morphine Sulfate SR (12 HR) [MS Contin] 1 tab PO Q12HR 30 Days #60 tab 11/14/17 [Rx] Ondansetron [Zofran] 8 mg PO Q8HR PRN #60 tablet 11/14/17 [Rx] Prochlorperazine Maleate [Compazine] 10 mg PO Q6HR PRN #90 tablet 11/14/17 [Rx] Lidocaine/Prilocaine [Emla] 1 appl TP AD #30 gm 11/25/17 [Rx] 3 Allergy/AdvReac Type Severity Reaction Status Date / Time No Known Allergies Allergy Verified 11/14/17 13:17 All Systems PM: A 10-system review of systems was performed and is negative for pertinent findings except as documented above in the HPI. - Constitutional Constitutional: no chills, no fever(s), no night sweats - EENT Eyes: no change in vision, no discharge, no pain, no photophobia Ears: no ear discharge, no ear pain, no tinnitus Nose, mouth and throat: no dysphagia, no nasal discharge, no neck pain, no sore throat - Cardiovascular Cardiovascular ROS IM: no chest pain, no diaphoresis, no dyspnea, no lightheadedness, no palpitations, no syncope - Respiratory Respiratory: no cough, no dyspnea, no wheezing, no excessive phlegm production - Gastrointestinal Gastrointestinal: no abdominal pain, no diarrhea, no hematemesis, no hematochezia, no melena, no nausea, no vomiting - Musculoskeletal Musculoskeletal ROS IM: no numbness, no tingling - Integumentary Integumentary IM: no rash, no unusual bruising - Neurological Neurological ROS: no confusion, no convulsions, no focal weakness, no numbness, no tingling, no tremor(s) - Hematologic/Lymphatic Hematologic/Lymphatic: no easy bruising - Constitutional Exam: General: Alert and oriented 3. Lying in bed slightly lethargic but in no acute distress Skin:Normal color, no rash, no lesions. HEENT:EOM, pupils equal, round and reactive; sclerae icteric Cardiovascular:Normal S1 & S2, no rubs, murmurs or gallops. No JVD. Pulse regular. Lungs:Normal breath sounds, no wheezes or crackles. Abdomen:Soft, diffuse tenderness to palpation. Positive bowel sounds Extremities:No deformity, no edema or tenderness, no joint swelling or clubbing. Neurological:Normal cognition and motor skills. Radial nerves II through XII intact. No pronator drift. Subtle asterixis. Pulses:Carotid and radial pulses normal +2. Rest of the physical exam is non contributory Internal Med - H&P Results - Labs CBC & Chem 7: 11/27/17 00:13 11/27/17 00:13 - Impressions ITS Impressions Abdomen/Pelvis CT 11/20/17 15:00 IMPRESSION: Interval progression of the primary pancreatic mass, with progression of metastatic disease within the liver and within localized lymph nodes. There is a spiculated nodule within the left lower lobe, concerning for metastatic disease. D/ / Moises Iqbal MD / Moises Iqbal MD Interpreting Provider: Moises Iqbal MD Chest CT 11/20/17 15:00 IMPRESSION: Interval progression of the primary pancreatic mass, with progression of metastatic disease within the liver and within localized lymph nodes. There is a spiculated nodule within the left lower lobe, concerning for metastatic disease. D/ / Moises Iqbal MD / Moises Iqbal MD Interpreting Provider: Moises Iqbal MD - Assessment and plan (1) Obstructive jaundice due to cancer Current Visit: Yes Status: Acute Assessment and plan: Obstructive jaundice in the setting of pancreatic adenocarcinoma involving the head of the pancreas. Patient underwent ERCP with stent placement in the recent past. However it appears that he has become re-obstructed. At this time patient appears to be responding to fluid and antibiotic treatment and his white blood cell count and lactic acid have trended down. Patient will need urgent evaluation by GI in the morning. Consult ordered but will need to be called in. We will keep patient nothing by mouth (2) Sepsis Current Visit: Yes Status: Acute Assessment and plan: Sepsis likely secondary to acute cholangitis in the setting of biliary tract obstruction due to pancreatic adenocarcinoma. Patient received 2 L of fluid bolus upon arrival to which his blood pressure responded to. Additionally, lactic acid has trended down. We will continue IV fluids at 150 mL an hour and broad-spectrum antibiotics with cefepime and Flagyl. Blood cultures pending Qualifiers: Sepsis type: sepsis due to unspecified organism Qualified Code(s): A41.9 - Sepsis, unspecified organism (3) Pancreatic cancer Current Visit: No Status: Acute Assessment and plan: Pancreatic adenocarcinoma with complete SMA encasement without evidence of thrombosis. Patient status post first cycle of gemcitabine and Abraxane. Qualifiers: Qualified Code(s): C25.0 - Malignant neoplasm of head of pancreas (4) Chronic pain Current Visit: No Status: Acute Assessment and plan: Pain management Qualifiers: Chronic pain type: other chronic pain Qualified Code(s): G89.29 - Other chronic pain (5) Hypertension Current Visit: No Status: Acute Assessment and plan: Blood pressure remained soft. We will hold patient's home antihypertensives for now Qualifiers: Hypertension type: essential hypertension Qualified Code(s): I10 - Essential (primary) hypertension (6) Hypokalemia Current Visit: No Status: Acute Assessment and plan: Replete potassium (7) Diabetes mellitus Current Visit: No Status: Acute Qualifiers: Qualified Code(s): E11.9 - Type 2 diabetes mellitus without complications - Time Spent With Patient Total time spent is greater than 50% in coordination of care (as documented) at patient's floor/unit and/or counseling patient:
[2017-11-26] MEDS ORDERED: 0.9 % Sodium Chloride 1,000 ML ONE (23:41)
[2017-11-26] MEDS: 0.9 % Sodium Chloride 1,000 ML IVC ONE (23:48)
[2017-11-27] MEDS: 0.9 % Sodium Chloride 1,000 ML IVC ONE (00:30)
[2017-11-27 00:31] LABS: Hematocrit 38.7 % (37.5-50.1); Hemoglobin 13.6 g/dL (12.9-16.9); Mean Corpuscular HGB Conc 35.1 g/dL (31.6-35.5); Mean Corpuscular Hemoglobin 30.2 pg (28.0-33.3); Mean Platelet Volume 12.1 fL (9.4-12.4); Platelet Count 197 K/mcL (140-400); Red Cell Distribution Width 14.2 % (11.5-14.5)
[2017-11-27 00:46] LABS: Alanine Aminotransferase 378 Units/L (7-52); Albumin 2.9 g/dL (3.5-5.7); Albumin/Globulin Ratio 1.1 (1.1-2.2); Alkaline Phosphatase 773 Units/L (34-104); Aspartate Amino Transferase 287 Units/L (13-39); BUN/Creatinine Ratio 18 (6-26); Blood Urea Nitrogen 10 mg/dL (8-23); Carbon Dioxide 23 mEq/L (23-29); Chloride 99 mEq/L (98-107); Globulin 2.6 g/dL (2.4-3.5); Glucose 183 mg/dL (70-105); Osmolality,Calculated 276 (280-300); Potassium 3.2 mEq/L (3.5-5.1); Sodium 131 mEq/L (136-145); Total Protein 5.5 g/dL (6.4-8.9); eGFR For Non-African Americans > 60 (> 60)
[2017-11-27] MEDS: *HR* Heparin 5,000 UNIT/ML VIAL SQ SCH ×2 (00:47→06:21)
[2017-11-27] MEDS: Cefepime HCl 2,000 MG in Water for inj. (sterile) 20 ML 20 ML IVPB SCH ×2 (00:47→08:33)
[2017-11-27] MEDS: MetroNIDAZOLE 500 MG/100 ML 500 MG/100 ML BAG IVPB SCH ×2 (00:48→05:31)
[2017-11-27] MEDS ORDERED: 0.9 % Sodium Chloride 1,000 ML ONE ×2 (02:07→03:32)
[2017-11-27] MEDS ORDERED: 0.9 % Sodium Chloride 1,000 ML IVC ONE ×2 (02:52→03:13)
[2017-11-27] MEDS ORDERED: OXYCODONE Oral CONC 10 MG/0.5 ML ORAL.SYG SL PRN (04:37)
[2017-11-27] MEDS ORDERED: Ondansetron 4 MG/2 ML VIAL IVP PRN (05:25)
[2017-11-27] MEDS ORDERED: Ondansetron 4 MG/2 ML VIAL ONE (05:28)
--- NOTE | 2017-11-27 09:47 | Internal Med Progress Note ---
Hospitalist Progress Note - Encounter Date of Encounter: 11/27/17 Time of Encounter: 09:40 - Subjective Interval History: No acute events overnight - Exam Vitals: Temp Pulse Resp BP Pulse Ox 100.3 F H 95 16 119/67 93 11/27/17 07:07 11/27/17 07:07 11/27/17 07:07 11/27/17 07:07 11/27/17 07:07 Exam: General: Alert and oriented 3. Lying in bed slightly lethargic but in no acute distress Skin:Normal color, no rash, no lesions. HEENT:EOM, pupils equal, round and reactive; Has positive scleral icterus bilaterally Cardiovascular:Normal S1 & S2, no rubs, murmurs or gallops. No JVD. Pulse regular. Lungs:Normal breath sounds, no wheezes or crackles. Abdomen:Soft, diffuse tenderness to palpation. Positive bowel sounds Extremities:No deformity, no edema or tenderness, no joint swelling or clubbing. Neurological:Normal cognition and motor skills. Radial nerves II through XII intact. No pronator drift. Subtle asterixis. - Assessment and Plan (1) Sepsis Status: Acute Assessment and Plan: Sepsis likely secondary to acute cholangitis in the setting of biliary tract obstruction due to pancreatic adenocarcinoma. Patient received 2 L of fluid bolus upon arrival to which his blood pressure responded to. Additionally, lactic acid has trended down. We will continue IV fluids with D5Ns at 125mL an hour and broad-spectrum antibiotics with cefepime and Flagyl. Blood cultures pending. GI consulted and appreciate recs (2) Obstructive jaundice due to cancer Status: Acute Assessment and Plan: Obstructive jaundice in the setting of pancreatic adenocarcinoma involving the head of the pancreas. Patient underwent ERCP with stent placement in the recent past. However it appears that he has become re-obstructed. At this time patient appears to be responding to fluid and antibiotic treatment and his white blood cell count and lactic acid have trended down. He has elevates alkphos and bilirubin Gi consulted and appreciate recs (3) Diabetes mellitus Status: Acute Assessment and Plan: Insulin as needed. Monitor fingersticks. Currently NPO and on D5 (4) Hypertension Status: Acute Assessment and Plan: Blood pressure remained soft. We will hold patient's home antihypertensives for now (5) Hypokalemia Status: Acute Assessment and Plan: Replete potassium (6) Chronic pain Status: Acute Assessment and Plan: Pain management (7) Pancreatic cancer Status: Acute Assessment and Plan: Pancreatic adenocarcinoma with complete SMA encasement without evidence of thrombosis. Patient status post first cycle of gemcitabine and Abraxane. Oncology following DVT Prophylaxis: Heparin sc - Time Spent with Patient Total time spent is greater than 50% in coordination of care (as documented) at patient's floor/unit and/or counseling patient: Internal Medicine: Result - Labs CBC & Chem 7: 11/27/17 00:13 11/27/17 00:13 Labs: Short CBC 11/27/17 Range/Units 00:13 WBC 12.1 H (4.3-11.1) K/mcL Hgb 13.6 (12.9-16.9) g/dL Hct 38.7 (37.5-50.1) % Plt Count 197 (140-400) K/mcL BMP 11/27/17 00:13 Sodium 131 L Potassium 3.2 L Chloride 99 Carbon Dioxide 23 BUN 10 Creatinine 0.55 L Glucose 183 H Calcium 8.0 L Liver Function 11/27/17 Range/Units 00:13 Total Bilirubin 10.0 H (0.3-1.0) mg/dL AST 287 H (13-39) Units/L ALT 378 H (7-52) Units/L Alkaline Phosphatase 773 H (34-104) Units/L Albumin 2.9 L (3.5-5.7) g/dL Consult Discharge Plan - Plan Referrals: Sona Quezada, HUMAN RESOURCES TRAINER [Primary Care Provider] - (1) Sepsis Qualifiers: Sepsis type: sepsis due to unspecified organism Qualified Code(s): A41.9 - Sepsis, unspecified organism (4) Hypertension Qualifiers: Hypertension type: essential hypertension Qualified Code(s): I10 - Essential (primary) hypertension (6) Chronic pain Qualifiers: Chronic pain type: other chronic pain Qualified Code(s): G89.29 - Other chronic pain
[2017-11-27] MEDS ORDERED: Dextrose Gel 15 GM/37.5 ML TUBE PO PRN ×2 (10:21)
[2017-11-27] MEDS ORDERED: D5% in Water 1,000 ML IVC PRN (10:21)
[2017-11-27] MEDS ORDERED: *HR* Dextrose 50 % in Water (Syg) 50 ML SYRINGE IVP PRN (10:21)
[2017-11-27] MEDS ORDERED: D5% in 0.9% NACL 1,000 ML IVC SCH (10:30)
--- NOTE | 2017-11-27 11:07 | Oncology Inp Consult Note ---
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 At that time at [facility] he had endoscopic ultrasound with fine-needle aspiration consistent with pancreatic adenocarcinoma and had a metal biliary stent placed at that time. Patient underwent his first cycle of chemotherapy with gemcitabine and Abraxane on November 25. CT scan performed November 20 shows progression of the patient's disease with increased size of mass as well as worsening liver metastasis and increase of adenopathy. A left lower lobe lung nodule was also noted concerning for metastatic disease, complete encasement of the SMA with worsening encasement of the SMV is also noted. Unclear if the patient's acute symptoms are related to side effects from chemotherapy or underlying infection. Agree with infectious workup and empiric antibiotic treatment. Once patient' s acute illness resolves will follow-up as an outpatient to discuss further treatment options and goals of care. Qualifiers: Qualified Code(s): C25.0 - Malignant neoplasm of head of pancreas (2) Obstructive jaundice due to cancer Status: Acute Assessment and plan: Bilirubin 10 this morning. Patient has diffuse jaundice. GI has been consulted to evaluate for possible endoscopic intervention to relieve biliary obstruction. - Data of Consult Patient: known to practice within the last 3 years Consult date: 11/27/17 Requesting Physician: Jacinto Rodriguez Primary Care Provider: Sona Quezada CNP - Consult Narrative Reason for consult: Pancreatic adenocarcinoma History of present illness: Mr. Chauhan is a 62 year old male with history of metastatic adenocarcinoma of the pancreas who presents with fevers and chills, weakness, and confusion. Patient's states that he underwent chemotherapy treatments on November 25 and yesterday, November 26, patient felt extremely weak and was somnolent and confused and had subjective fevers and chills. was concerned cancer center who recommended the patient go to the emergency room. At outside emergency room he was apparently mildly hypotensive with lactate greater than 4. Patient and states that soon after arrival he felt better. This morning patient states that he feels okay. He denies abdominal pain, chest pain , shortness of breath, fever, chills. Past Med Surg Social Fam HX - Past Medical History Medical history: diabetes, hyperlipidemia, hypertension Additional medical history: chronic back pain Psychiatric history: no psych history - Past Surgical History Surgical History: other Additional surgical history: Weekend surgery I &D by Dr. Cramer. Spinal Stimulator - Social History Smoking Status: Current every day smoker Packs per day: 1 Smokeless Tobacco Status: No Alcohol use: none Drug use: none - Family History Mother Adopted: [place]: [place] of Family Member: Yes, Fraternal Living Status: Age at : 65 Cause of : End-stage Kidney Failure Hx Family Cardiac Disorders: No Hx Family Respiratory Disorders: No Hx Family GI Disorders: No Hx Family Genitourinary Disorders: Yes Hx Family Endocrine Disorder: Yes Hx Family Neuromuscular Disorders: No Hx Family Neurologic Disorders: No Hx Family HEENT Disorders: No Hx Family Autoimmune Disorders: No Paternal Grandmother Living Status: Hx Family Cardiac Disorders: Yes Hx Family Respiratory Disorders: No Hx Family Cancer: No Hx Family GI Disorders: No Hx Family Endocrine Disorder: Yes Hx Family Neuromuscular Disorders: No Hx Family Neurologic Disorders: No Hx Family HEENT Disorders: No Hx Family Autoimmune Disorders: No Maternal Grandmother Name: Mervat Chauhan Living Status: Age at : 79 Hx Family Cardiac Disorders: Yes Hx Family Endocrine Disorder: Yes Maternal Grandfather Name: Vinod Chauhan Living Status: Age at : 81 Cause of : Prostate Cancer Hx Family Cardiac Disorders: Yes Hx Family Cancer: Yes (Prostate Cancer) Brother Name: Casey San Living Status: Age at : 55 Hx Family Respiratory Disorders: Yes (COPD) Hx Family Cancer: Yes (Lung) Sister Name: Jody Living Status: Age at : 53 Cause of : Lung Cancer Hx Family Respiratory Disorders: Yes (COPD) Hx Family Cancer: Yes (Lung Cancer) Hx Family Endocrine Disorder: Yes (Diabetes) Medications and Allergies Famotidine [Heartburn Prevention] 20 mg PO BID 06/21/17 [History] Linagliptin [Tradjenta] 5 mg PO DAILY 06/21/17 [History] Metformin HCl [Glucophage] 1,000 mg PO BID 06/21/17 [History] Simvastatin [Zocor] 20 mg PO HS 06/21/17 [History] hydroCHLOROthiazide [Hydrochlorothiazide] 25 mg PO DAILY 06/21/17 [History] Alogliptin Benzoate [Alogliptin] 25 mg PO DAILY 11/06/17 [History] HYDROcodone/Acet 10/325 mg [[place] 10-325 mg] 1 tab PO Q6H PRN 11/07/17 [History] Potassium Chloride [K-Tab ER] 20 meq PO AD #36 tablet.er 11/10/17 [Rx] Morphine Sulfate SR (12 HR) [MS Contin] 1 tab PO Q12HR 30 Days #60 tab 11/14/17 [Rx] Ondansetron [Zofran] 8 mg PO Q8HR PRN #60 tablet 11/14/17 [Rx] Prochlorperazine Maleate [Compazine] 10 mg PO Q6HR PRN #90 tablet 11/14/17 [Rx] Lidocaine/Prilocaine [Emla] 1 appl TP AD #30 gm 11/25/17 [Rx] Amlodipine Besylate [Amlodipine Besylate] 10 mg PO DAILY 11/27/17 [History] Glimepiride [Amaryl] 4 mg PO Q12H 11/27/17 [History] 3 Allergy/AdvReac Type Severity Reaction Status Date / Time No Known Allergies Allergy Verified 11/27/17 10:17 All systems: reviewed and no additional remarkable complaints except as stated Oncology - Exam - Constitutional Vitals: Temp Pulse Resp BP Pulse Ox 100.3 F H 95 16 119/67 93 11/27/17 07:07 11/27/17 07:07 11/27/17 07:07 11/27/17 07:07 11/27/17 07:07 General appearance: disheveled, no acute distress - Head Head exam: Present: atraumatic, normal inspection, normocephalic - Eye Eye exam: Present: scleral icterus - ENT ENT exam: Present: mucous membranes dry - Respiratory Respiratory exam: Present: decreased breath sounds. Absent: rales, rhonchi - Cardiovascular Cardiovascular exam: Present: tachycardia. Absent: irregular rhythm - GI/Abdominal GI/Abdominal exam: Present: distended (mild), organomegaly (hepatomegaly), soft. Absent: tenderness - Extremities Exam Extremities exam: Present: pedal edema (trace) - Neurological Exam Neurological exam: Present: alert, oriented X3, no focal deficits - Skin Additional comments: Diffuse jaundice Oncology - Results Labs: 3 11/27/17 11/27/17 11/27/17 00:13 00:13 00:13 WBC 12.1 H RBC 4.50 Hgb 13.6 Hct 38.7 MCV 86.0 MCH 30.2 MCHC 35.1 RDW 14.2 Plt Count 197 MPV 12.1 Sodium 131 L Potassium 3.2 L Chloride 99 Carbon Dioxide 23 BUN 10 Creatinine 0.55 L Est GFR ( Amer) > 60 Est GFR (Non-Af Amer) > 60 BUN/Creatinine Ratio 18 Glucose 183 H Calculated Osmolality 276 L Lactic Acid 1.9 Calcium 8.0 L Total Bilirubin 10.0 H AST 287 H ALT 378 H Alkaline Phosphatase 773 H Serum Total Protein 5.5 L Albumin 2.9 L Globulin 2.6 Albumin/Globulin Ratio 1.1 Consult Discharge Plan - Plan Referrals: Sona Quezada, LEASE ANALYST [Primary Care Provider] -
--- NOTE | 2017-11-27 11:08 | Gastroenterology Consult Note ---
<Nicholas Hampton - Last Filed: 11/27/17 18:48> Date of Encounter: 11/27/17 Time of Encounter: 11:07 - Assessment and plan (1) Obstructive jaundice due to cancer Status: Acute Assessment and plan: Secondary to pancreatic adenocarcinoma involving head of pancreas - Underwent ERCP with stent placement September 2017; metal stent - 10 mm x 6 cm or metal biliary stent placed in CBD - Patient appears to become re-obstructed - Currently receiving fluid and antibiotic treatment - Currently NPO - White count 12.1, alkaline phosphatase 773, AST 287, ALT 378 - Plan is ERCP tomorrow, possible placement of stent inside the previous metal stent (2) Sepsis Status: Acute Assessment and plan: Met SIRS criteria; patients last temp was 100.3, pulse 95, leukocytosis at 12.1 - Possibly secondary to acute cholangitis in the setting of biliary tract obstruction - Received 2 L of fluid bolus; blood pressure improved - Blood cultures drawn 2; currently pending - Currently on cefepime and flagyl Qualifiers: Sepsis type: sepsis due to unspecified organism Qualified Code(s): A41.9 - Sepsis, unspecified organism (3) Pancreatic cancer Status: Acute Assessment and plan: - Pancreatic adenocarcinoma with complete SMA encasement w/o evidence of thrombosis - S/p first cycle of gemcitabine and Abraxane Qualifiers: Pancreatic malignancy location: unspecified Qualified Code(s): C25.9 - Malignant neoplasm of pancreas, unspecified - Time Spent With Patient Total time spent is greater than 50% in coordination of care (as documented) at patient's floor/unit and/or counseling patient: less than 15 minutes GI History of Present Illness - Data of Consult Requesting Physician: Jacinto Rodriguez - Consult Narrative Reason for consult: Possible biliary obstruction History of present illness: Patient is a 62-year-old male with a PMH of COPD, HTN, HLD, DM, and pancreatic adenocarcinoma who was recently hospitalized in September 2017 for chronic weight loss, nausea, and vomiting of several months duration. CT scan demonstrated a mass the head of his pancreas suspicious for malignancy with complete encasement of SMA without evidence of thrombosis. He underwent ERCP and biliary stent placement. FNA performed with findings consistent with pancreatic adenocarcinoma. Patient underwent first cycle of chemotherapy on November 25. Shortly afterward, patient woke up and developed chills and shakes. Blood glucose at this time was found be elevated at greater than 300. Was recommended to present to the ED for further evaluation by oncologist. Patient also reports vomiting with 2 episodes of loose watery diarrhea. Otherwise denied having any abdominal pain, chest pain, dyspnea. Laboratory analysis was significant for an elevated white count of 12.1, bilirubin of 10 with transaminitis, lactic acid greater than 4. Patient was hypotensive with a blood pressure in the upper 80s systolic. Patient seen and examined at bedside ; states that he does not feel well. Admits to intermittent nausea, vomiting, and abdominal pain. Past Med Surg Social Fam HX - Past Medical History Medical history: diabetes, hyperlipidemia, hypertension Additional medical history: chronic back pain Psychiatric history: no psych history - Past Surgical History Surgical History: other Additional surgical history: Weekend surgery I &D by Dr. Cramer. Spinal Stimulator - Social History Smoking Status: Current every day smoker Packs per day: 1 Smokeless Tobacco Status: No Alcohol use: none Drug use: none - Family History Mother Adopted: [place]: [place] of Family Member: Yes, Fraternal Living Status: Age at : 65 Cause of : End-stage Kidney Failure Hx Family Cardiac Disorders: No Hx Family Respiratory Disorders: No Hx Family GI Disorders: No Hx Family Genitourinary Disorders: Yes Hx Family Endocrine Disorder: Yes Hx Family Neuromuscular Disorders: No Hx Family Neurologic Disorders: No Hx Family HEENT Disorders: No Hx Family Autoimmune Disorders: No Paternal Grandmother Living Status: Hx Family Cardiac Disorders: Yes Hx Family Respiratory Disorders: No Hx Family Cancer: No Hx Family GI Disorders: No Hx Family Endocrine Disorder: Yes Hx Family Neuromuscular Disorders: No Hx Family Neurologic Disorders: No Hx Family HEENT Disorders: No Hx Family Autoimmune Disorders: No Maternal Grandmother Name: Mervat Chauhan Living Status: Age at : 79 Hx Family Cardiac Disorders: Yes Hx Family Endocrine Disorder: Yes Maternal Grandfather Name: Vinod Tien Living Status: Age at : 81 Cause of : Prostate Cancer Hx Family Cardiac Disorders: Yes Hx Family Cancer: Yes (Prostate Cancer) Brother Name: Casey San Living Status: Age at : 55 Hx Family Respiratory Disorders: Yes (COPD) Hx Family Cancer: Yes (Lung) Sister Name: Jody Living Status: Age at : 53 Cause of : Lung Cancer Hx Family Respiratory Disorders: Yes (COPD) Hx Family Cancer: Yes (Lung Cancer) Hx Family Endocrine Disorder: Yes (Diabetes) - Constitutional Vitals: Temp Pulse Resp BP Pulse Ox 100.3 F H 95 16 119/67 93 11/27/17 07:07 11/27/17 07:07 11/27/17 07:07 11/27/17 07:07 11/27/17 07:07 - Other Additional findings: ENT exam: Scleral icterus, mucous membranes dry Respiratory exam: Decreased breath sounds; no rales, rhonchi Cardiovascular exam: Tachycardic, S1 and S2 GI/Abdominal exam: Soft, tender, distended, hepatomegaly Extremities exam: +1 pedal edema (trace) Skin: jaundiced Results - Labs CBC & Chem 7: 11/27/17 00:13 11/27/17 00:13 Labs: Last Result Calcium 8.0 mg/dL (8.6-10.3) L 11/27/17 00:13 Entire Visit Hgb 13.6 g/dL (12.9-16.9) 11/27/17 00:13 Hct 38.7 % (37.5-50.1) 11/27/17 00:13 Total Bilirubin 10.0 mg/dL (0.3-1.0) H 11/27/17 00:13 AST 287 Units/L (13-39) H 11/27/17 00:13 ALT 378 Units/L (7-52) H 11/27/17 00:13 Consult Discharge Plan - Plan Referrals: Sona Quezada, PUBLISHING AGENT [Primary Care Provider] - <Ranjan Chow - Last Filed: 11/28/17 08:14> Date of Encounter: 11/28/17 Time of Encounter: 18:00 - Time Spent With Patient Total time spent is greater than 50% in coordination of care (as documented) at patient's floor/unit and/or counseling patient: GI History of Present Illness - Data of Consult Requesting Physician: Jacinto Rodriguez - Consult Narrative History of present illness: Mr. Chauhan is a 62 year old male - Constitutional Vitals: Temp Pulse Resp BP Pulse Ox 99.5 F 93 15 113/64 92 11/27/17 00:09 11/27/17 05:42 11/26/17 22:29 11/27/17 05:42 11/26/17 23:47 Results - Labs CBC & Chem 7: 11/27/17 00:13 11/27/17 00:13 Labs: Last Result Calcium 8.0 mg/dL (8.6-10.3) L 11/27/17 00:13 Entire Visit Hgb 13.6 g/dL (12.9-16.9) 11/27/17 00:13 Hct 38.7 % (37.5-50.1) 11/27/17 00:13 Total Bilirubin 10.0 mg/dL (0.3-1.0) H 11/27/17 00:13 AST 287 Units/L (13-39) H 11/27/17 00:13 ALT 378 Units/L (7-52) H 11/27/17 00:13 E. coli (PCR) Not Detected (Not Detect) 11/27/17 00:13 - Impressions Impressions Chest X-Ray 11/27/17 09:49 IMPRESSION: Mild bibasilar atelectasis. No focal consolidation. D/ / Lianne Dye MD / Lianne Dye MD Interpreting Provider: Lianne Dye MD - Attending Attestation I have personally performed a face to face evaluation on this patient. I have reviewed and agree with the care plan. History and Exam by me shows: Pt seen patient with the obstructive jaundice due to stent occlusion. Denies any abdominal pain. Assessment: Metastatic pancreatic cancer. Now with obstructive jaundice most probably due to stent occlusion and possible cholangitis. Recommendation: ERCP with placement of plastic stent inside a metal stent
[2017-11-27] MEDS ORDERED: Insulin LISPRO 300 UNITS/3 ML VIAL SQ SCH (12:00)
[2017-11-27 13:53] VITALS: BP 113/64
[2017-11-27] MEDS ORDERED: *HR* Heparin 5,000 UNIT/ML VIAL SQ SCH (18:00)
[2017-11-28 03:20] LABS: Acinetobacter baumannii by PCR Not Detected (Not Detect); Enterococcus by PCR Not Detected (Not Detect); Staphylococcus aureus by PCR Not Detected (Not Detect); Staphylococcus by PCR Not Detected (Not Detect); Streptococcus agalactiae(B)PCR Not Detected (Not Detect); Streptococcus by PCR Not Detected (Not Detect); Streptococcus pneumoniae PCR Not Detected (Not Detect); Streptococcus pyogenes (A) PCR Not Detected (Not Detect); blaKPC Carbapenem-Resist Gene Not Detected (Not Detect)
[2017-11-28 03:23] LABS: Enterobacter cloacae Cmplx PCR Not Detected (Not Detect); Enterobacteriaceae by PCR DETECTED (Not Detect); Escherichia coli by PCR Not Detected (Not Detect); Klebsiella oxytoca by PCR Not Detected (Not Detect)
[2017-11-28 03:24] LABS: Candida albicans by PCR Not Detected (Not Detect); Candida glabrata by PCR Not Detected (Not Detect); Candida krusei by PCR Not Detected (Not Detect); Candida parapsilosis by PCR Not Detected (Not Detect); Candida tropicalis by PCR Not Detected (Not Detect); Klebsiella pneumoniae by PCR DETECTED (Not Detect); Proteus by PCR Not Detected (Not Detect); Pseudomonas aeruginosa by PCR Not Detected (Not Detect); Serratia marcescens by PCR Not Detected (Not Detect)
== END 2017-11-26 21:45 | disposition still patient (30) | DRG 435 ==
LOC: RAD 13:23 → 2NENU 13:23 → RAD 13:24 → SUATTDRO 11-26 21:44 → OBSVTOIN 11-26 21:44
PROVIDERS: ADMIT Internal Medicine; ATTEND Student in an Organized Health Care Education/Training Program

== ENCOUNTER 2017-11-26 05:56 | Inpatient (IN) ==
[2017-11-26] MEDS ORDERED: Naloxone 0.4 MG/ML INJ IVP PRN (23:12)
[2017-11-27] MEDS: *HR* Heparin 5,000 UNIT/ML VIAL SQ SCH ×4 (00:47→21:39)
[2017-11-27] MEDS: Nicotine 21 MG PATCH.TD24 TD SCH ×2 (00:48→09:00)
[2017-11-27] MEDS: MetroNIDAZOLE 500 MG/100 ML 500 MG/100 ML BAG IVPB SCH ×6 (01:12→18:24)
[2017-11-27] MEDS ORDERED: Ondansetron 4 MG/2 ML VIAL IVP SCH (05:25)
[2017-11-27] MEDS: Cefepime HCl 2,000 MG in Water for inj. (sterile) 20 ML 20 ML IVP SCH ×2 (08:33→21:39)
[2017-11-27] MEDS ORDERED: Dextrose Gel 15 GM/37.5 ML TUBE PO PRN ×2 (11:46)
[2017-11-27] MEDS ORDERED: D5% in Water 1,000 ML IVC PRN (11:46)
[2017-11-27] MEDS ORDERED: *HR* Dextrose 50 % in Water (Syg) 50 ML SYRINGE IVP PRN (11:46)
[2017-11-27] MEDS: OXYCODONE Oral CONC 10 MG/0.5 ML ORAL.SYG SL PRN ×2 (12:12→21:37)
[2017-11-27] MEDS: Insulin LISPRO 300 UNITS/3 ML VIAL SQ SCH ×2 (12:21→18:25)
[2017-11-27] MEDS: D5% in 0.9% NACL 1,000 ML IVC SCH (12:23)
[2017-11-27] MEDS ORDERED: Ondansetron 4 MG/2 ML VIAL IVP PRN (13:45)
--- NOTE | 2017-11-27 15:00 | Internal Med Progress Note ---
Hospitalist Progress Note - Encounter Date of Encounter: 11/27/17 Time of Encounter: 09:40 - Subjective Interval History: No acute events overnight. There was a problem with the admission registration account so this is a duplicate progress note - Exam Vitals: Temp Pulse Resp BP Pulse Ox 98.5 F 74 15 98/59 94 11/27/17 11:43 11/27/17 11:43 11/27/17 11:43 11/27/17 11:43 11/27/17 11:43 Exam: General: Alert and oriented 3. Lying in bed slightly lethargic but in no acute distress Skin:Normal color, no rash, no lesions. HEENT:EOM, pupils equal, round and reactive; Has positive scleral icterus bilaterally Cardiovascular:Normal S1 & S2, no rubs, murmurs or gallops. No JVD. Pulse regular. Lungs:Normal breath sounds, no wheezes or crackles. Abdomen:Soft, diffuse tenderness to palpation. Positive bowel sounds Extremities:No deformity, no edema or tenderness, no joint swelling or clubbing. Neurological:Normal cognition and motor skills. Radial nerves II through XII intact. No pronator drift. Subtle asterixis. - Assessment and Plan (1) Sepsis Current Visit: No Status: Acute Assessment and Plan: Sepsis likely secondary to acute cholangitis in the setting of biliary tract obstruction due to pancreatic adenocarcinoma. Had elevated WBC and has been febrile to 100.3. Patient received 2 L of fluid bolus upon arrival to which his blood pressure responded to. Additionally, lactic acid has trended down. We will continue IV fluids with D5Ns at 125mL an hour and broad-spectrum antibiotics with cefepime and Flagyl. Blood cultures pending. GI consulted and appreciate recs (2) Obstructive jaundice due to cancer Current Visit: No Status: Acute Assessment and Plan: Obstructive jaundice in the setting of pancreatic adenocarcinoma involving the head of the pancreas. Patient underwent ERCP with stent placement in September 2017. However it appears that he has become re-obstructed. At this time patient appears to be responding to fluid and antibiotic treatment and his white blood cell count and lactic acid have trended down. He has elevated alkphos and bilirubin GI consulted and appreciate recs (3) Pancreatic cancer Current Visit: No Status: Acute Assessment and Plan: Pancreatic adenocarcinoma with complete SMA encasement without evidence of thrombosis. Patient status post first cycle of gemcitabine and Abraxane. Oncology following (4) Chronic pain Current Visit: No Status: Acute Assessment and Plan: Pain management (5) Diabetes mellitus Current Visit: No Status: Acute Assessment and Plan: Insulin as needed. Monitor fingersticks. Currently NPO and on D5 (6) Hypertension Current Visit: No Status: Acute Assessment and Plan: Blood pressure remained soft. We will hold patient's home antihypertensives for now (7) Hypokalemia Current Visit: No Status: Acute Assessment and Plan: Replete potassium DVT Prophylaxis: Heparin sc - Time Spent with Patient Total time spent is greater than 50% in coordination of care (as documented) at patient's floor/unit and/or counseling patient: Consult Discharge Plan - Plan Referrals: Sona Quezada, DRIVER MANAGER [Primary Care Provider] - (1) Sepsis Qualifiers: Sepsis type: sepsis due to unspecified organism Qualified Code(s): A41.9 - Sepsis, unspecified organism (4) Chronic pain Qualifiers: Chronic pain type: other chronic pain Qualified Code(s): G89.29 - Other chronic pain (6) Hypertension Qualifiers: Hypertension type: essential hypertension Qualified Code(s): I10 - Essential (primary) hypertension
--- NOTE | 2017-11-27 15:27 | Palliative - Consult Note ---
Date of Encounter: 11/27/17 Time of Encounter: 15:25 - Assessment and Plan (1) Abdominal pain Current Visit: Yes Status: Acute Assessment and plan: Has Oxycodone 10mg available PRN. Has utilized x1. Patient states that this gave him a great deal of relief. Pain currently 05/10. Qualifiers: Abdominal location: lower abdomen, unspecified Qualified Code(s): R10.30 - Lower abdominal pain, unspecified (2) Nausea Current Visit: Yes Status: Acute Assessment and plan: Has Ondansetron available PRN - has not had to utilize this. Remains NPO (3) Advance care planning Current Visit: Yes Status: Acute Assessment and plan: Goals of care discussion with pt/, Jane. They have already discussed code status at length - very emotional discussing this. Patient was verbal, but soft spoken with flat affect. states they have been overwhelmed with his diagnosis, and know the outlook is not good. He does not want any heroics in event of cardiac arrest, and he does not want intubated. Desires other aggressive medical care to continue until they get some additional information. Code status DNR/DNI - he is aware that this may be reversed temporarily for procedure requiring sedation. Patient completed healthcare power of trademark attorney, selecting Jane as primary agent, and sister Beti Kaufman as alternate. Copies made and provided to as well as placed on medical record. Began to discuss plan of care moving forward - with GI/oncology consults still pending - discussed 3 options of rehab/home health/ hospice. Will f/u in am and review additional information. (4) Pancreatic cancer Current Visit: No Status: Acute Qualifiers: Pancreatic malignancy location: unspecified Qualified Code(s): C25.9 - Malignant neoplasm of pancreas, unspecified (5) Obstructive jaundice due to cancer Current Visit: No Status: Acute (6) Sepsis Current Visit: No Status: Acute Assessment and plan: Continues treatment with IV fluids/atb therapy. Cultures pending Qualifiers: Sepsis type: sepsis due to unspecified organism Qualified Code(s): A41.9 - Sepsis, unspecified organism Palliative-CN HPI - Data of Consult Consult date: 11/27/17 Requesting Physician: Jacinto Rodriguez Primary Care Provider: Sona Quezada CNP - Consult Narrative History of present illness: Mr. Chauhan is a 62 year old male with a recent diagnosis in August of metastatic pancreatic cancer who presented with increased jaundice, nausea/vomiting, decreased oral intake. at bedside states that he became so weak, he was unable to walk. He had biliary stent placed at [facility], and began chemotherapy treatments at the [facility] this week. He is patient of Dr. Renteria and I review her consult notes. Appears pt was told of poor prognosis - 2 chemo treatments were planned and then he was to be re-scanned for progress. At time of admission, CT shows progression of disease, but he just had chemotherapy day before yesterday. GI consult has been obtained, as there is concern of blockage of biliary stent. He was also SIRS positive, and was treated with IV fluids and atb therapy, cultures pending. Other medical history includes: diabetes, HTN, chronic back pain with placement of stimulator. Palliative care was consulted to assist with goals of care discussion. Upon my visit, pt states that he does feel much better than on admission. I assisted ambulating him to bathroom, and he did very well. C/o some abdominal discomfort, states he just had pain medication and it is very helpful. Was not eating much - but is now hungry and thirsty but has been NPO over 24 hours awaiting GI consult. Lives with , and sister has also been staying at their home for support. Has 3 sons that are all local as well. CC: Jacinto Rodriguez Past Med Surg Social Fam HX - Past Medical History Medical history: diabetes, hyperlipidemia, hypertension Additional medical history: chronic back pain Psychiatric history: no psych history - Past Surgical History Surgical History: other Additional surgical history: Weekend surgery I &D by Dr. Cramer. Spinal Stimulator - Social History Smoking Status: Current every day smoker Smokeless Tobacco Status: No Alcohol use: none Drug use: none - Family History Mother Adopted: No Twin of Family Member: Yes, Fraternal Living Status: Hx Family Cardiac Disorders: No Hx Family Respiratory Disorders: No Hx Family GI Disorders: No Hx Family Endocrine Disorder: Yes Hx Family Neuromuscular Disorders: No Hx Family Neurologic Disorders: No Hx Family HEENT Disorders: No Hx Family Autoimmune Disorders: No Paternal Grandmother Living Status: Hx Family Cardiac Disorders: Yes Hx Family Respiratory Disorders: No Hx Family Cancer: No Hx Family GI Disorders: No Hx Family Endocrine Disorder: Yes Hx Family Neuromuscular Disorders: No Hx Family Neurologic Disorders: No Hx Family HEENT Disorders: No Hx Family Autoimmune Disorders: No Maternal Grandmother Living Status: Hx Family Cardiac Disorders: Yes Hx Family Endocrine Disorder: Yes Maternal Grandfather Living Status: Hx Family Cardiac Disorders: Yes Hx Family Cancer: Yes (Prostate Cancer) Brother Living Status: Hx Family Respiratory Disorders: Yes (COPD) Hx Family Cancer: Yes (Lung) Sister Living Status: Hx Family Respiratory Disorders: Yes (COPD) Hx Family Cancer: Yes (Lung Cancer) Hx Family Endocrine Disorder: Yes (Diabetes) Medications and Allergies Famotidine [Heartburn Prevention] 20 mg PO BID 06/21/17 [History] Linagliptin [Tradjenta] 5 mg PO DAILY 06/21/17 [History] Metformin HCl [Glucophage] 1,000 mg PO BID 06/21/17 [History] Simvastatin [Zocor] 20 mg PO HS 06/21/17 [History] hydroCHLOROthiazide [Hydrochlorothiazide] 25 mg PO DAILY 06/21/17 [History] Alogliptin Benzoate [Alogliptin] 25 mg PO DAILY 11/06/17 [History] HYDROcodone/Acet 10/325 mg [[place] 10-325 mg] 1 tab PO Q6H PRN 11/07/17 [History] Potassium Chloride [K-Tab ER] 20 meq PO AD #36 tablet.er 11/10/17 [Rx] Morphine Sulfate SR (12 HR) [MS Contin] 1 tab PO Q12HR 30 Days #60 tab 11/14/17 [Rx] Ondansetron [Zofran] 8 mg PO Q8HR PRN #60 tablet 11/14/17 [Rx] Prochlorperazine Maleate [Compazine] 10 mg PO Q6HR PRN #90 tablet 11/14/17 [Rx] Lidocaine/Prilocaine [Emla] 1 appl TP AD #30 gm 11/25/17 [Rx] Amlodipine Besylate [Amlodipine Besylate] 10 mg PO DAILY 11/27/17 [History] Glimepiride [Amaryl] 4 mg PO Q12H 11/27/17 [History] 3 Allergy/AdvReac Type Severity Reaction Status Date / Time No Known Allergies Allergy Verified 11/27/17 10:17 All systems: reviewed and no additional remarkable complaints except as stated ( nausea/vomiting, poor appetite, weight loss, abd pain, malaise and weakness, jaundice) Palliative Care-Exam - Constitutional Vitals: Temp Pulse Resp BP Pulse Ox 98.5 F 74 15 98/59 94 11/27/17 11:43 11/27/17 11:43 11/27/17 11:43 11/27/17 11:43 11/27/17 11:43 General appearance: Present: no acute distress - Head Head Exam: Present: normal inspection, normocephalic - Eye Eye exam: Present: scleral icterus - Respiratory Respiratory exam: Present: CTAB - Cardiovascular Cardiovascular exam: Present: +S1, +S2 - GI/Abdominal Exam GI/Abdominal exam: Present: normal bowel sounds, soft, tenderness - Extremities Exam Extremities exam: Present: normal capillary refill, normal inspection - Neurological Exam Neurological exam: Present: alert, oriented X3, strengths equal and symetr throughout Consult Discharge Plan - Plan Referrals: Sona Quezada, SUPPLY CONTROLLER [Primary Care Provider] - Palliative Quality Palliative Quality: Screen for Code Status: Yes, Screen for Goals of Care: Yes, Screen for Pain: Yes, If Pain Regimen Started, Initiate Bowel Regimen: NA ( loose stools), Screen for Nausea/Vomitting: Yes
--- NOTE | 2017-11-27 16:04 | Oncology Inp Consult Note ---
<Mansoor Aguilar - Last Filed: 11/27/17 17:24> Date of Encounter: 11/27/17 Time of Encounter: 16:02 Assessment and Plan (1) Pancreatic cancer Status: Acute Assessment and plan: Adenocarcinoma the pancreatic head diagnosed in September 2017. At that time at [facility] he had endoscopic ultrasound with fine-needle aspiration consistent with pancreatic adenocarcinoma and had a metal biliary stent placed at that time. Patient underwent his first cycle of chemotherapy with gemcitabine and Abraxane on November 25. CT scan performed November 20 shows progression of the patient's disease with increased size of mass as well as worsening liver metastasis and increase of adenopathy. A left lower lobe lung nodule was also noted concerning for metastatic disease, complete encasement of the SMA with worsening encasement of the SMV is also noted. Unclear if the patient's acute symptoms are related to side effects from chemotherapy or underlying infection. Agree with infectious workup and empiric antibiotic treatment. Once patient' s acute illness resolves will follow-up as an outpatient to discuss further treatment options and goals of care. Qualifiers: Pancreatic malignancy location: unspecified Qualified Code(s): C25.9 - Malignant neoplasm of pancreas, unspecified (2) Obstructive jaundice due to cancer Status: Acute Assessment and plan: Bilirubin 10 this morning. Patient has diffuse jaundice. GI has been consulted to evaluate for possible endoscopic intervention to relieve biliary obstruction. - Data of Consult Patient: known to practice within the last 3 years Consult date: 11/27/17 Requesting Physician: Jacinto Rodriguez Primary Care Provider: Sona Quezada CNP - Consult Narrative Reason for consult: Pancreatic cancer History of present illness: Mr. Chauhan is a 62 year old male with history of metastatic adenocarcinoma of the pancreas who presents with fevers and chills, weakness, and confusion. Patient's states that he underwent chemotherapy treatments on November 25 and yesterday, November 26, patient felt extremely weak and was somnolent and confused and had subjective fevers and chills. was concerned cancer center who recommended the patient go to the emergency room. At outside emergency room he was apparently mildly hypotensive with lactate greater than 4. Patient and states that soon after arrival he felt better. This morning patient states that he feels okay. He denies abdominal pain, chest pain , shortness of breath, fever, chills. Past Med Surg Social Fam HX - Past Medical History Medical history: diabetes, hyperlipidemia, hypertension Additional medical history: chronic back pain Psychiatric history: no psych history - Past Surgical History Surgical History: other Additional surgical history: Weekend surgery I &D by Dr. Cramer. Spinal Stimulator - Social History Smoking Status: Current every day smoker Smokeless Tobacco Status: No Alcohol use: none Drug use: none - Family History Mother Adopted: No Twin of Family Member: Yes, Fraternal Living Status: Hx Family Cardiac Disorders: No Hx Family Respiratory Disorders: No Hx Family GI Disorders: No Hx Family Endocrine Disorder: Yes Hx Family Neuromuscular Disorders: No Hx Family Neurologic Disorders: No Hx Family HEENT Disorders: No Hx Family Autoimmune Disorders: No Paternal Grandmother Living Status: Hx Family Cardiac Disorders: Yes Hx Family Respiratory Disorders: No Hx Family Cancer: No Hx Family GI Disorders: No Hx Family Endocrine Disorder: Yes Hx Family Neuromuscular Disorders: No Hx Family Neurologic Disorders: No Hx Family HEENT Disorders: No Hx Family Autoimmune Disorders: No Maternal Grandmother Living Status: Hx Family Cardiac Disorders: Yes Hx Family Endocrine Disorder: Yes Maternal Grandfather Living Status: Hx Family Cardiac Disorders: Yes Hx Family Cancer: Yes (Prostate Cancer) Brother Living Status: Hx Family Respiratory Disorders: Yes (COPD) Hx Family Cancer: Yes (Lung) Sister Living Status: Hx Family Respiratory Disorders: Yes (COPD) Hx Family Cancer: Yes (Lung Cancer) Hx Family Endocrine Disorder: Yes (Diabetes) Medications and Allergies Famotidine [Heartburn Prevention] 20 mg PO BID 06/21/17 [History] Linagliptin [Tradjenta] 5 mg PO DAILY 06/21/17 [History] Metformin HCl [Glucophage] 1,000 mg PO BID 06/21/17 [History] Simvastatin [Zocor] 20 mg PO HS 06/21/17 [History] hydroCHLOROthiazide [Hydrochlorothiazide] 25 mg PO DAILY 06/21/17 [History] Alogliptin Benzoate [Alogliptin] 25 mg PO DAILY 11/06/17 [History] HYDROcodone/Acet 10/325 mg [[place] 10-325 mg] 1 tab PO Q6H PRN 11/07/17 [History] Potassium Chloride [K-Tab ER] 20 meq PO AD #36 tablet.er 11/10/17 [Rx] Morphine Sulfate SR (12 HR) [MS Contin] 1 tab PO Q12HR 30 Days #60 tab 11/14/17 [Rx] Ondansetron [Zofran] 8 mg PO Q8HR PRN #60 tablet 11/14/17 [Rx] Prochlorperazine Maleate [Compazine] 10 mg PO Q6HR PRN #90 tablet 11/14/17 [Rx] Lidocaine/Prilocaine [Emla] 1 appl TP AD #30 gm 11/25/17 [Rx] Amlodipine Besylate [Amlodipine Besylate] 10 mg PO DAILY 11/27/17 [History] Glimepiride [Amaryl] 4 mg PO Q12H 11/27/17 [History] 3 Allergy/AdvReac Type Severity Reaction Status Date / Time No Known Allergies Allergy Verified 11/27/17 10:17 All systems: reviewed and no additional remarkable complaints except as stated Oncology - Exam - Constitutional Vitals: Temp Pulse Resp BP Pulse Ox 98.4 F 64 15 94/58 94 11/27/17 15:41 11/27/17 15:41 11/27/17 15:41 11/27/17 15:41 11/27/17 15:41 General appearance: disheveled, no acute distress - Eye Eye exam: Present: scleral icterus - ENT ENT exam: Present: mucous membranes dry - Respiratory Respiratory exam: Present: decreased breath sounds. Absent: rales, rhonchi - Cardiovascular Cardiovascular exam: Present: tachycardia. Absent: irregular rhythm - GI/Abdominal GI/Abdominal exam: Present: distended (mild), organomegaly (hepatomegaly), soft. Absent: tenderness - Extremities Exam Extremities exam: Present: pedal edema (trace) - Neurological Exam Neurological exam: Present: alert, oriented X3 - Skin Additional comments: Diffuse jaundice Consult Discharge Plan - Plan Referrals: Sona Quezada CNP [Primary Care Provider] - <Zachary Schulte - Last Filed: 11/27/17 19:10> Date of Encounter: 11/27/17 - Data of Consult Requesting Physician: Jacinto Rodriguez Primary Care Provider: Sona Quezada CNP - Consult Narrative History of present illness: Mr. Chauhan is a 62 year old male Oncology - Exam - Constitutional Vitals: Temp Pulse Resp BP Pulse Ox 98.4 F 64 15 94/58 94 11/27/17 15:41 11/27/17 15:41 11/27/17 15:41 11/27/17 15:41 11/27/17 15:41 - Attending Attestation I have seen and examined Mr. Chauhan and agree with the resident's assertion and physical exam. Mr. Chauhan appears to have a probable occlusion of his metallic biliary stent. This may be secondary to extrinsic compression as opposed to very sludge/debris. Gastroenterology has been consult and the patient is awaiting their recommendations and evaluation. As he had a fever at presentation, ascending cholangitis is a concern in the setting. He has been placed on cefepime and metronidazole with resolution of his fever. Continue with supportive measures otherwise. No new recommendations from an oncologic perspective Inpatient Charges Provider: Dr. Danya Schulte Consult Charges: [id number]
--- NOTE | 2017-11-27 22:43 | Event Note ---
Date of Encounter: 11/27/17 Time of Encounter: 18:[address] Hampton. O/E: jaundice. A; Pt with metastaic CA panc now with poss stent occlusion/cholangitis. Rec; Iv Abs. ERCP with poss plastic stent placement inside the metal stent.
--- NOTE | 2017-11-28 00:06 | Anesthesia Evaluation PreOp ---
Date of Encounter: 11/28/17 Time of Encounter: 23:00 - Past History Planned Operation: ERCP Cardiac History: HTN, Hyperlipidemia Pulmonary History: Smoker (40 pack year), COPD SAP CONSULTANT History: Other (Chronic pain with spinal cord stim) Other Medical History: Diabetes Type II, Other (Pancreatic Cancer) Anesthesia History: No Prior Anesthetic Complications, Past Anesthesia (ERCP with stent placement ) Alcohol Use: none Drug use: none Medications and Allergies Famotidine [Heartburn Prevention] 20 mg PO BID 06/21/17 [History] Linagliptin [Tradjenta] 5 mg PO DAILY 06/21/17 [History] Metformin HCl [Glucophage] 1,000 mg PO BID 06/21/17 [History] Simvastatin [Zocor] 20 mg PO HS 06/21/17 [History] hydroCHLOROthiazide [Hydrochlorothiazide] 25 mg PO DAILY 06/21/17 [History] Alogliptin Benzoate [Alogliptin] 25 mg PO DAILY 11/06/17 [History] HYDROcodone/Acet 10/325 mg [[place] 10-325 mg] 1 tab PO Q6H PRN 11/07/17 [History] Potassium Chloride [K-Tab ER] 20 meq PO AD #36 tablet.er 11/10/17 [Rx] Morphine Sulfate SR (12 HR) [MS Contin] 1 tab PO Q12HR 30 Days #60 tab 11/14/17 [Rx] Ondansetron [Zofran] 8 mg PO Q8HR PRN #60 tablet 11/14/17 [Rx] Prochlorperazine Maleate [Compazine] 10 mg PO Q6HR PRN #90 tablet 11/14/17 [Rx] Lidocaine/Prilocaine [Emla] 1 appl TP AD #30 gm 11/25/17 [Rx] Amlodipine Besylate [Amlodipine Besylate] 10 mg PO DAILY 11/27/17 [History] Glimepiride [Amaryl] 4 mg PO Q12H 11/27/17 [History] 3 Allergy/AdvReac Type Severity Reaction Status Date / Time No Known Allergies Allergy Verified 11/27/17 10:17 - Meds/Allergy Pre-op Review Medications Reviewed: Yes Allergies Reviewed: Yes Beta Blockers on Current Med List: No Anesthesia Results - Labs Laboratory Tests 06/21/17 11/17/17 11/27/17 06:44 07:51 00:13 Hgb 13.6 Hct 38.7 Plt Count 197 PT 14.7 H INR 1.3 APTT 34.2 Sodium Potassium BUN Creatinine 11/27/17 00:13 Hgb Hct Plt Count PT INR APTT Sodium 131 L Potassium 3.2 L BUN 10 Creatinine 0.55 L Anesthesia Exam O2 Sat Height 1.88 m Weight 95.2 kg O2 Sat by Pulse Oximetry 94 O2 Sat by Pulse Oximetry 94 O2 Sat by Pulse Oximetry 94 O2 Sat by Pulse Oximetry 93 Vital Signs Temp Pulse Resp BP Pulse Ox 100.3 F H 95 16 119/67 93 11/27/17 07:07 11/27/17 07:07 11/27/17 07:07 11/27/17 07:07 11/27/17 07:07 Height: 6'2 Weight: 209 lbs NPO (# of Hours): MN Pain Scale: 2 - HEENT Pupil (Motor): Pupils equal, EOMI Mallampati: III Teeth: Edentulous Oral Opening: Less than or equal to 3 - SAP CONSULTANT LOC: Oriented SAP CONSULTANT Motor: Normal RUE, Normal LUE, Normal RLE, Normal LLE, Normal Face SAP CONSULTANT Sensory: Normal: RUE, LUE, RLE, LLE, Face - Cardiac Rhythm: Regular Murmur: None JVD: No Carotid Bruit: No - Pulmonary Breath Sounds: bilateral Clear Respiratory Effort: Symmetrical Anesthesia Assess/Plan ASA Score: 3 (HTN COPD DM Pancreatic Ca) Modified Nathaly Scale for Level of Consciousness: Cooperative, oriented, and tranquil Anesthetic Plan: General Monitoring Plan: Standard Monitors Recovery Plan: PACU (Discussed GA, agrees to proceed)
[2017-11-28] MEDS: MetroNIDAZOLE 500 MG/100 ML 500 MG/100 ML BAG IVPB SCH ×4 (00:08→18:33)
[2017-11-28] MEDS: D5% in 0.9% NACL 1,000 ML IVC SCH ×3 (00:13→17:52)
[2017-11-28] MEDS: Insulin LISPRO 300 UNITS/3 ML VIAL SQ SCH ×4 (00:15→18:40)
[2017-11-28 04:32] LABS: Basophils % 0.1 %; Eosinophils # 0.1 K/mcL (0.0-0.6); Eosinophils % 1.3 %; Hematocrit 37.3 % (37.5-50.1); Hemoglobin 12.8 g/dL (12.9-16.9); Immature Granulocytes % 0.4 % (0-4); Lymphocytes # 0.5 K/mcL (0.6-4.6); Mean Corpuscular HGB Conc 34.3 g/dL (31.6-35.5); Mean Corpuscular Volume 87.4 fL (83.0-100.0); Mean Platelet Volume 12.4 fL (9.4-12.4); Monocytes # 0.1 K/mcL (0.0-1.3); Monocytes % 1.5 %; Neutrophils # 8.6 K/mcL (1.6-8.9); Platelet Count 172 K/mcL (140-400); Red Blood Count 4.27 M/mcL (4.19-5.50); Red Cell Distribution Width 14.4 % (11.5-14.5); Segmented Neutrophils % 91.7 %
[2017-11-28 04:49] LABS: Alanine Aminotransferase 296 Units/L (7-52); Albumin 2.8 g/dL (3.5-5.7); Albumin/Globulin Ratio 1.1 (1.1-2.2); Alkaline Phosphatase 558 Units/L (34-104); Aspartate Amino Transferase 189 Units/L (13-39); BUN/Creatinine Ratio 19 (6-26); Bilirubin,Total 9.8 mg/dL (0.3-1.0); Blood Urea Nitrogen 8 mg/dL (8-23); Carbon Dioxide 27 mEq/L (23-29); Chloride 100 mEq/L (98-107); Globulin 2.5 g/dL (2.4-3.5); Glucose 141 mg/dL (70-105); Osmolality,Calculated 275 (280-300); Phosphorous 1.4 mg/dL (2.7-4.5); Potassium 3.2 mEq/L (3.5-5.1); Sodium 132 mEq/L (136-145); Total Protein 5.3 g/dL (6.4-8.9); eGFR For Non-African Americans > 60 (> 60)
[2017-11-28] MEDS: *HR* Heparin 5,000 UNIT/ML VIAL SQ SCH ×3 (05:27→21:37)
[2017-11-28] MEDS: Cefepime HCl 2,000 MG in Water for inj. (sterile) 20 ML 20 ML IVP SCH ×3 (05:30→21:38)
[2017-11-28] MEDS ORDERED: *HR* Propofol 200 MG/20 ML VIAL IVP ONE (07:42)
[2017-11-28] MEDS ORDERED: Dexamethasone 4 MG/ML VIAL ONE (07:44)
[2017-11-28] MEDS ORDERED: *HR* Succinylcholine 200 MG/10 ML VIAL IVP ONE (07:44)
[2017-11-28] MEDS ORDERED: *HR* FentaNYL (PF) 100 MCG/2 ML VIAL ONE (07:44)
[2017-11-28] MEDS ORDERED: Lidocaine -MPF 4% 5 ML AMPUL ONE (07:44)
[2017-11-28] MEDS ORDERED: Ondansetron 4 MG/2 ML VIAL ONE (07:44)
[2017-11-28] MEDS ORDERED: Lidocaine -MPF 2% 2 ML VIAL ONE (07:44)
[2017-11-28] MEDS: OXYCODONE Oral CONC 10 MG/0.5 ML ORAL.SYG SL PRN ×3 (08:24→21:36)
[2017-11-28] MEDS ORDERED: *HR* Promethazine 25 MG/ML VIAL IVP PRN (09:31)
[2017-11-28] MEDS ORDERED: *HR* HYDROmorphone (PF) 1 MG/ML SYRINGE IVP PRN (09:31)
[2017-11-28] MEDS ORDERED: Potassium Phosphate 44 MEQ in 0.9 % Sodium Chloride 250 ML IVPB SCH (09:45)
[2017-11-28] MEDS ORDERED: Indomethacin 50 MG SUPP.RECT RC ONE (09:45)
--- NOTE | 2017-11-28 09:45 | Internal Med Progress Note ---
Hospitalist Progress Note - Encounter Date of Encounter: 11/28/17 Time of Encounter: 09:40 - Subjective Interval History: No acute events overnight. - Exam Vitals: Temp Pulse Resp BP Pulse Ox 98.4 F 64 18 105/66 95 11/28/17 08:48 11/28/17 08:48 11/28/17 08:48 11/28/17 08:48 11/28/17 08:48 Exam: General: Alert and oriented 3. Lying in bed slightly lethargic but in no acute distress Skin:Normal color, no rash, no lesions. HEENT:EOM, pupils equal, round and reactive; Has positive scleral icterus bilaterally Cardiovascular:Normal S1 & S2, no rubs, murmurs or gallops. No JVD. Pulse regular. Lungs:Normal breath sounds, no wheezes or crackles. Abdomen:Soft, diffuse tenderness to palpation. Positive bowel sounds Extremities:No deformity, no edema or tenderness, no joint swelling or clubbing. Neurological:Normal cognition and motor skills. Radial nerves II through XII intact. No pronator drift. Subtle asterixis. - Assessment and Plan (1) Sepsis Current Visit: No Status: Acute Assessment and Plan: Sepsis likely secondary to acute cholangitis in the setting of biliary tract obstruction due to pancreatic adenocarcinoma. Had elevated WBC and has been febrile to 100.3. Patient received 2 L of fluid bolus upon arrival to which his blood pressure responded to. Additionally, lactic acid has trended down. We will continue IV fluids with D5Ns at 125mL an hour and broad-spectrum antibiotics with cefepime and Flagyl. Blood cultures pending. GI following and plan for ERCP today (2) Obstructive jaundice due to cancer Current Visit: No Status: Acute Assessment and Plan: Obstructive jaundice in the setting of pancreatic adenocarcinoma involving the head of the pancreas. Patient underwent ERCP with stent placement in September 2017. However it appears that he has become re-obstructed. At this time patient appears to be responding to fluid and antibiotic treatment and his white blood cell count and lactic acid have trended down. He has elevated alkphos and bilirubin GI plan for ERCP today (3) Pancreatic cancer Current Visit: No Status: Acute Assessment and Plan: Pancreatic adenocarcinoma with complete SMA encasement without evidence of thrombosis. Patient status post first cycle of gemcitabine and Abraxane. Oncology following (4) Chronic pain Current Visit: No Status: Acute Assessment and Plan: Pain management (5) Diabetes mellitus Current Visit: No Status: Acute Assessment and Plan: Insulin as needed. Monitor fingersticks. Currently NPO and on D5 (6) Hypertension Current Visit: No Status: Acute Assessment and Plan: Patient borderline hypotensive. We will hold patient's home antihypertensives for now (7) Hypokalemia Current Visit: No Status: Acute Assessment and Plan: Replete potassium (8) Severe protein-energy malnutrition Current Visit: Yes Status: Acute Assessment and Plan: Likely 2/2 to pancreatic adenocarcinoma. Follow dietary recs DVT Prophylaxis: Heparin sc - Time Spent with Patient Total time spent is greater than 50% in coordination of care (as documented) at patient's floor/unit and/or counseling patient: Internal Medicine: Result - Labs CBC & Chem 7: 11/28/17 04:07 11/28/17 04:07 Labs: Short CBC 11/28/17 Range/Units 04:07 WBC 9.3 (4.3-11.1) K/mcL Hgb 12.8 L (12.9-16.9) g/dL Hct 37.3 L (37.5-50.1) % Plt Count 172 (140-400) K/mcL Neutrophils # 8.6 (1.6-8.9) K/mcL BMP 11/28/17 04:07 Sodium 132 L Potassium 3.2 L Chloride 100 Carbon Dioxide 27 BUN 8 Creatinine 0.43 L Glucose 141 H Calcium 8.0 L Liver Function 11/28/17 Range/Units 04:07 Total Bilirubin 9.8 H (0.3-1.0) mg/dL AST 189 H (13-39) Units/L ALT 296 H (7-52) Units/L Alkaline Phosphatase 558 H (34-104) Units/L Albumin 2.8 L (3.5-5.7) g/dL Consult Discharge Plan - Plan Referrals: Sona Quezada, SUPERVISING BAILIFF [Primary Care Provider] - (1) Sepsis Qualifiers: Sepsis type: sepsis due to unspecified organism Qualified Code(s): A41.9 - Sepsis, unspecified organism (3) Pancreatic cancer Qualifiers: Pancreatic malignancy location: unspecified Qualified Code(s): C25.9 - Malignant neoplasm of pancreas, unspecified (4) Chronic pain Qualifiers: Chronic pain type: other chronic pain Qualified Code(s): G89.29 - Other chronic pain (6) Hypertension Qualifiers: Hypertension type: essential hypertension Qualified Code(s): I10 - Essential (primary) hypertension
--- NOTE | 2017-11-28 10:36 | Anesthesia Evaluation Post Op ---
Date of Encounter: 11/28/17 Time of Encounter: 10:30 - Vital Signs Vital Signs: Vital Signs/O2 Sat, Most Current Temp Pulse Resp BP Pulse Ox 98.9 F 60 16 106/73 95 11/28/17 10:31 11/28/17 10:31 11/28/17 10:31 11/28/17 10:31 11/28/17 10:31 - Lungs Lungs: Clear Ascult./Percussion - Airway Airway: Non-obstructed - Cardiovascular Regular Rate, Baseline Rhythm - Mental Status Mental Status: Alert & Oriented, Answers Appropriately - Pain Pain Scale: 0 Pain Scale used: Numeric (1 - 10) - Nausea Vomiting Nausea Vomiting: Not Present - Hydration Hydration: Tolerates oral liquids, Ice chips, Has not voided - Discharge PostOp Status: Transfer Patient to floor
--- NOTE | 2017-11-28 11:16 | Oncology Inp Progress Note ---
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 Evidence of biliary obstruction on labs likely related to sludge within his current stem. Patient underwent ERCP this morning with 2 plastic stents placed with the metal stent. Patient clinically improved. Continue to monitor hepatic labs. Plan to follow- up as outpatient to resume his chemotherapeutic regimen. Qualifiers: Pancreatic malignancy location: unspecified Qualified Code(s): C25.9 - Malignant neoplasm of pancreas, unspecified (2) Obstructive jaundice due to cancer Current Visit: No Status: Acute Assessment and plan: Bilirubin 9.8 this morning. Patient has diffuse jaundice although it appears slightly improved. Patient underwent ERCP with stent placement as discussed above. Oncology: Subj Interval history: Patient seen and examined at bedside. Patient states he feels pretty good today. Patient underwent procedure which she tolerated well. States he is hungry. Denies abdominal pain, nausea, vomiting. - Constitutional Vitals: Vital Signs Temp Pulse Resp BP Pulse Ox 11/28/17 10:31 98.9 F 60 16 106/73 95 11/28/17 10:20 61 16 103/64 95 11/28/17 10:10 62 16 101/60 95 11/28/17 10:00 97.9 F 71 13 91/52 99 11/28/17 08:48 98.4 F 64 18 105/66 95 11/28/17 08:00 98 11/28/17 06:49 98.8 F 67 16 107/69 94 11/28/17 05:28 97.9 F 66 16 99/64 92 11/28/17 00:55 97.8 F 65 16 102/55 95 11/27/17 19:19 97.8 F 70 16 94/58 94 11/27/17 15:41 98.4 F 64 15 94/58 94 11/27/17 11:43 98.5 F 74 15 98/59 94 Intake and Output 11/27/17 11/28/17 11/28/17 23:59 07:59 15:59 Intake Total 1120 / 1120 120 / 120 Output Total 400 / 400 450 / 450 Balance 1120 / 1120 -280 / -280 -450 / -450 Intake: IV Fluids 1120 / 1120 120 / 120 D5% And 0.9% Nacl 1000 Ml 1,000 1000 / 1000 ML @ 125 mls/hr IVC .Q8H [facility] Rx#:[id number] Maxipime 2,000 MG In Water for 20 / 20 20 / 20 inj. (sterile) 20 ML @ 300 mls/ hr IVP Q8H [facility] Rx#:[id number] Flagyl Premix 500 MG/100 ML 500 100 / 100 100 / 100 mg In 100 ml @ 100 mls/hr IVPB Q6HR [facility] Rx#:[id number] Oral 0 / 0 Output: Urine 400 / 400 450 / 450 Other: Meal Dinner Breakfast Percent of Meal Consumed 0% 0% Weight 95.2 kg 96.1 kg Blood Glucose* 163 150 134 Patient Weight 11/28/17 23:59 Weight 96.1 kg General appearance: no acute distress - Eye Eye exam: Present: scleral icterus - Respiratory Respiratory exam: Present: CTAB. Absent: rales, rhonchi - GI/Abdominal GI/Abdominal exam: Present: organomegaly (hepatomegaly), soft. Absent: tenderness - Extremities Exam Extremities exam: Absent: pedal edema - Neurological Exam Neurological exam: Present: alert, oriented X3 Oncology: Obj Data - Labs CBC & Chem 7: 11/28/17 04:07 11/28/17 04:07 Labs: Laboratory Results - last 24 hr 11/27/17 11/28/17 11/28/17 23:54 04:07 04:07 WBC 9.3 RBC 4.27 Hgb 12.8 L Hct 37.3 L MCV 87.4 MCH 30.0 MCHC 34.3 RDW 14.4 Plt Count 172 MPV 12.4 Immature Gran % 0.4 Seg Neutrophils % 91.7 Lymphocytes % 5.0 Monocytes % 1.5 Eosinophils % 1.3 Basophils % 0.1 Neutrophils # 8.6 Lymphocytes # 0.5 L Monocytes # 0.1 Eosinophils # 0.1 Basophils # 0.0 Sodium 132 L Potassium 3.2 L Chloride 100 Carbon Dioxide 27 BUN 8 Creatinine 0.43 L Est GFR ( Amer) > 60 Est GFR (Non-Af Amer) > 60 BUN/Creatinine Ratio 19 Glucose 141 H POC Glucose 163 H Calculated Osmolality 275 L Calcium 8.0 L Phosphorus 1.4 L Magnesium 2.0 Total Bilirubin 9.8 H AST 189 H ALT 296 H Alkaline Phosphatase 558 H Serum Total Protein 5.3 L Albumin 2.8 L Globulin 2.5 Albumin/Globulin Ratio 1.1 - Impressions Impressions Cath/Invasive Procedure 11/28/17 00:00 IMPRESSION: Biliary stents as above. D/ / Alex Navarro MD / Alex Navarro MD Interpreting Provider: Alex Navarro MD Consult Discharge Plan - Plan Referrals: Sona Quezada, [employer]OR [Primary Care Provider] - <Zachary Schulte - Last Filed: 11/28/17 21:56> Date of Encounter: 11/28/17 - Constitutional Vitals: Vital Signs Temp Pulse Resp BP Pulse Ox 11/28/17 15:58 98.6 F 64 15 105/55 94 11/28/17 14:49 96 11/28/17 11:10 98.4 F 60 19 110/70 96 11/28/17 10:31 98.9 F 60 16 106/73 95 11/28/17 10:20 61 16 103/64 95 11/28/17 10:10 62 16 101/60 95 11/28/17 10:00 97.9 F 71 13 91/52 99 11/28/17 08:48 98.4 F 64 18 105/66 95 11/28/17 08:00 98 11/28/17 06:49 98.8 F 67 16 107/69 94 11/28/17 05:28 97.9 F 66 16 99/64 92 11/28/17 00:55 97.8 F 65 16 102/55 95 Intake and Output 11/28/17 11/28/17 11/29/17 08:59 16:59 00:59 Intake Total 220 / 220 100 / 100 Output Total 400 / 400 450 / 450 Balance -180 / -180 -350 / -350 Intake: IV Fluids 220 / 220 100 / 100 Maxipime 2,000 MG In Water for 20 / 20 inj. (sterile) 20 ML @ 300 mls/ hr IVP Q8H [facility] Rx#:[id number] Flagyl Premix 500 MG/100 ML 500 200 / 200 100 / 100 mg In 100 ml @ 100 mls/hr IVPB Q6HR [facility] Rx#:[id number] Output: Urine 400 / 400 450 / 450 Other: Meal Breakfast Percent of Meal Consumed 0% Weight 96.1 kg 96.1 kg Blood Glucose* 150 134 Patient Weight 11/29/17 00:59 Weight 96.1 kg Oncology: Obj Data - Labs CBC & Chem 7: 11/28/17 04:07 11/28/17 04:07 Labs: Laboratory Results - last 24 hr 11/27/17 11/28/17 11/28/17 23:54 04:07 04:07 WBC 9.3 RBC 4.27 Hgb 12.8 L Hct 37.3 L MCV 87.4 MCH 30.0 MCHC 34.3 RDW 14.4 Plt Count 172 MPV 12.4 Immature Gran % 0.4 Seg Neutrophils % 91.7 Lymphocytes % 5.0 Monocytes % 1.5 Eosinophils % 1.3 Basophils % 0.1 Neutrophils # 8.6 Lymphocytes # 0.5 L Monocytes # 0.1 Eosinophils # 0.1 Basophils # 0.0 Sodium 132 L Potassium 3.2 L Chloride 100 Carbon Dioxide 27 BUN 8 Creatinine 0.43 L Est GFR ( Amer) > 60 Est GFR (Non-Af Amer) > 60 BUN/Creatinine Ratio 19 Glucose 141 H POC Glucose 163 H Calculated Osmolality 275 L Calcium 8.0 L Phosphorus 1.4 L Magnesium 2.0 Total Bilirubin 9.8 H AST 189 H ALT 296 H Alkaline Phosphatase 558 H Serum Total Protein 5.3 L Albumin 2.8 L Globulin 2.5 Albumin/Globulin Ratio 1.1 11/28/17 11/28/17 11/28/17 05:41 18:38 18:39 WBC RBC Hgb Hct MCV MCH MCHC RDW Plt Count MPV Immature Gran % Seg Neutrophils % Lymphocytes % Monocytes % Eosinophils % Basophils % Neutrophils # Lymphocytes # Monocytes # Eosinophils # Basophils # Sodium Potassium Chloride Carbon Dioxide BUN Creatinine Est GFR ( Amer) Est GFR (Non-Af Amer) BUN/Creatinine Ratio Glucose POC Glucose 150 H 416 H* 432 H* Calculated Osmolality Calcium Phosphorus Magnesium Total Bilirubin AST ALT Alkaline Phosphatase Serum Total Protein Albumin Globulin Albumin/Globulin Ratio - Impressions Impressions Cath/Invasive Procedure 11/28/17 00:00 IMPRESSION: Biliary stents as above. D/ / Alex Navarro MD / Alex Navarro MD Interpreting Provider: Alex Navarro MD Inpatient Charges Provider: Dr. Danya Schulte Follow Up: [id number] - Attending Attestation I examined this patient and my medical decision-making was reviewed with the resi dent. I agree with the documented findings, disposition and treatment plan as described except to the extent set forth below. Mr. Chauhan underwent repeat ERCP. Plastic stents were placed through the metal stent. The procedure was well tolerated. He is afebrile but one of two blood cultures grew both GNR and GPR c/w sepsis from a GI source. Would continue IV antibiotics pending speciation and susceptibilities. He feels well otherwise. No new recommendations from an oncologic perspective. We will sign off. Please call with concerns or questions.
--- NOTE | 2017-11-28 11:36 | Palliative Progress Note ---
Date of Encounter: 11/28/17 Time of Encounter: 11:30 - Assessment and plan (1) Abdominal pain Current Visit: Yes Status: Acute Assessment and plan: Well controlled with Oxycodone 10mg. Utilized x3 last 24 hours. States he is feeling much better. Qualifiers: Abdominal location: lower abdomen, unspecified Qualified Code(s): R10.30 - Lower abdominal pain, unspecified (2) Nausea Current Visit: Yes Status: Acute Assessment and plan: Continue antiemetics as needed. Has not utilized last 24 hours (3) Advance care planning Current Visit: Yes Status: Acute Assessment and plan: Adv directives completed yesterday, as well as DNR state form. He has f/u with Oncology 12/09 for 2nd round of chemotherapy. His goal remains to complete that treatment and further discuss with Dr. Renteria. If he remains here on , will follow up. Depending on how his strength returns, he may benefit from home health for therapy. (4) Pancreatic cancer Current Visit: No Status: Acute Qualifiers: Pancreatic malignancy location: unspecified Qualified Code(s): C25.9 - Malignant neoplasm of pancreas, unspecified (5) Obstructive jaundice due to cancer Current Visit: No Status: Acute (6) Sepsis Current Visit: No Status: Acute Qualifiers: Sepsis type: sepsis due to unspecified organism Qualified Code(s): A41.9 - Sepsis, unspecified organism - Time Spent With Patient Total time spent is greater than 50% in coordination of care (as documented) at patient's floor/unit and/or counseling patient: - Subjective Interval history: Patient back from ERCP/stent this am. He states he is feeling much better and excited to get something to eat. has left to get him food. States Oxycodone controlling pain well. - Constitutional Vitals: Abnormal lab results Hgb 12.8 g/dL (12.9-16.9) L 11/28/17 04:07 Hct 37.3 % (37.5-50.1) L 11/28/17 04:07 Lymphocytes # 0.5 K/mcL (0.6-4.6) L 11/28/17 04:07 Sodium 132 mEq/L (136-145) L 11/28/17 04:07 Potassium 3.2 mEq/L (3.5-5.1) L 11/28/17 04:07 Creatinine 0.43 mg/dL (0.70-1.30) L 11/28/17 04:07 Glucose 141 mg/dL (70-105) H 11/28/17 04:07 POC Glucose 163 mg/dL (70-99) H 11/27/17 23:54 Calculated Osmolality 275 (280-300) L 11/28/17 04:07 Calcium 8.0 mg/dL (8.6-10.3) L 11/28/17 04:07 Phosphorus 1.4 mg/dL (2.7-4.5) L 11/28/17 04:07 Total Bilirubin 9.8 mg/dL (0.3-1.0) H 11/28/17 04:07 AST 189 Units/L (13-39) H 11/28/17 04:07 ALT 296 Units/L (7-52) H 11/28/17 04:07 Alkaline Phosphatase 558 Units/L (34-104) H 11/28/17 04:07 Serum Total Protein 5.3 g/dL (6.4-8.9) L 11/28/17 04:07 Albumin 2.8 g/dL (3.5-5.7) L 11/28/17 04:07 General appearance: Present: no acute distress - Eye Eye exam: Present: scleral icterus - Respiratory Respiratory exam: Present: decreased breath sounds, CTAB - Cardiovascular Cardiovascular exam: Present: +S1, +S2 - GI/Abdominal GI/Abdominal exam: Present: distended, tenderness - Extremities Exam Extremities exam: Present: normal capillary refill, normal inspection - Neurological Exam Neurological exam: Present: alert, oriented X3, strengths equal and symetr throughout - Skin Skin exam: Present: dry, warm Palliative Quality Palliative Quality: Screen for Code Status: Yes, Screen for Goals of Care: Yes, Screen for Pain: Yes, If Pain Regimen Started, Initiate Bowel Regimen: NA ( loose stools), Screen for Nausea/Vomitting: Yes Code Status: 11/27/17 15:25 DNR [Resuscitation Status: Active] [RES] Routine Comment: Resuscitation Status: [id number] - Labs CBC & Chem 7: 11/28/17 04:07 11/28/17 04:07 Labs: Laboratory Results - last 24 hr 11/27/17 11/28/17 11/28/17 23:54 04:07 04:07 WBC 9.3 RBC 4.27 Hgb 12.8 L Hct 37.3 L MCV 87.4 MCH 30.0 MCHC 34.3 RDW 14.4 Plt Count 172 MPV 12.4 Immature Gran % 0.4 Seg Neutrophils % 91.7 Lymphocytes % 5.0 Monocytes % 1.5 Eosinophils % 1.3 Basophils % 0.1 Neutrophils # 8.6 Lymphocytes # 0.5 L Monocytes # 0.1 Eosinophils # 0.1 Basophils # 0.0 Sodium 132 L Potassium 3.2 L Chloride 100 Carbon Dioxide 27 BUN 8 Creatinine 0.43 L Est GFR ( Amer) > 60 Est GFR (Non-Af Amer) > 60 BUN/Creatinine Ratio 19 Glucose 141 H POC Glucose 163 H Calculated Osmolality 275 L Calcium 8.0 L Phosphorus 1.4 L Magnesium 2.0 Total Bilirubin 9.8 H AST 189 H ALT 296 H Alkaline Phosphatase 558 H Serum Total Protein 5.3 L Albumin 2.8 L Globulin 2.5 Albumin/Globulin Ratio 1.1 - Impressions Impressions Cath/Invasive Procedure 11/28/17 00:00 IMPRESSION: Biliary stents as above. D/ / Alex Navarro MD / Alex Navarro MD Interpreting Provider: Alex Navarro MD Consult Discharge Plan - Plan Referrals: Sona Quezada, WIRE COILER [Primary Care Provider] -
[2017-11-28] MEDS: Ringers Solution, Lactated 1,000 ML IVC SCH (14:10)
[2017-11-28] MEDS: Nicotine 21 MG PATCH.TD24 TD SCH (14:18)
[2017-11-28] MEDS: Potassium Chloride Elixir 20 MEQ/15 ML UDC PO SCH (18:32)
[2017-11-28] MEDS ORDERED: Insulin LISPRO 300 UNITS/3 ML VIAL SQ ONE (21:00)
[2017-11-29] MEDS: Potassium Chloride Elixir 20 MEQ/15 ML UDC PO SCH (00:53)
[2017-11-29] MEDS: MetroNIDAZOLE 500 MG/100 ML 500 MG/100 ML BAG IVPB SCH ×2 (00:54→06:21)
[2017-11-29] MEDS ORDERED: Potassium Chloride Elixir 20 MEQ/15 ML UDC PO SCH (01:00)
[2017-11-29] MEDS: Insulin LISPRO 300 UNITS/3 ML VIAL SQ SCH ×4 (01:18→17:38)
[2017-11-29] MEDS: OXYCODONE Oral CONC 10 MG/0.5 ML ORAL.SYG SL PRN ×3 (04:23→17:45)
[2017-11-29] MEDS: Cefepime HCl 2,000 MG in Water for inj. (sterile) 20 ML 20 ML IVP SCH (04:24)
[2017-11-29] MEDS: *HR* Heparin 5,000 UNIT/ML VIAL SQ SCH ×3 (06:22→22:01)
[2017-11-29 06:59] LABS: Basophils % 0.1 %; Eosinophils % 0.2 %; Hematocrit 34.7 % (37.5-50.1); Hemoglobin 11.9 g/dL (12.9-16.9); Immature Granulocytes % 0.3 % (0-4); Lymphocytes # 0.5 K/mcL (0.6-4.6); Lymphocytes % 5.9 %; Mean Corpuscular HGB Conc 34.3 g/dL (31.6-35.5); Mean Corpuscular Hemoglobin 29.8 pg (28.0-33.3); Mean Platelet Volume 12.1 fL (9.4-12.4); Monocytes # 0.2 K/mcL (0.0-1.3); Monocytes % 1.8 %; Neutrophils # 8.3 K/mcL (1.6-8.9); Platelet Count 188 K/mcL (140-400); Red Blood Count 3.99 M/mcL (4.19-5.50); Red Cell Distribution Width 14.3 % (11.5-14.5); Segmented Neutrophils % 91.7 %
[2017-11-29 07:28] LABS: Alanine Aminotransferase 190 Units/L (7-52); Albumin 2.6 g/dL (3.5-5.7); Alkaline Phosphatase 435 Units/L (34-104); Aspartate Amino Transferase 59 Units/L (13-39); BUN/Creatinine Ratio 29 (6-26); Bilirubin,Total 5.1 mg/dL (0.3-1.0); Blood Urea Nitrogen 10 mg/dL (8-23); Carbon Dioxide 25 mEq/L (23-29); Chloride 103 mEq/L (98-107); Globulin 2.7 g/dL (2.4-3.5); Glucose 143 mg/dL (70-105); Magnesium 2.2 mg/dL (1.6-2.6); Osmolality,Calculated 278 (280-300); Phosphorous 1.8 mg/dL (2.7-4.5); Potassium 3.9 mEq/L (3.5-5.1); Sodium 133 mEq/L (136-145); Total Protein 5.3 g/dL (6.4-8.9); eGFR For Non-African Americans > 60 (> 60)
--- NOTE | 2017-11-29 10:30 | Internal Med Progress Note ---
Hospitalist Progress Note - Encounter Date of Encounter: 11/29/17 Time of Encounter: 10:40 - Subjective Interval History: No acute events overnight. - Exam Vitals: Temp Pulse Resp BP Pulse Ox 97.5 F L 65 16 124/77 97 11/29/17 07:30 11/29/17 07:30 11/29/17 07:30 11/29/17 07:30 11/29/17 07:30 Exam: General: Alert and oriented 3. Lying in bed slightly lethargic but in no acute distress Skin:Normal color, no rash, no lesions. HEENT:EOM, pupils equal, round and reactive; Has positive scleral icterus bilaterally Cardiovascular:Normal S1 & S2, no rubs, murmurs or gallops. No JVD. Pulse regular. Lungs:Normal breath sounds, no wheezes or crackles. Abdomen:Soft, diffuse tenderness to palpation. Positive bowel sounds Extremities:No deformity, no edema or tenderness, no joint swelling or clubbing. Neurological:Normal cognition and motor skills. Radial nerves II through XII intact. No pronator drift. Subtle asterixis. - Assessment and Plan (1) Sepsis Current Visit: No Status: Acute Assessment and Plan: Sepsis likely secondary to acute cholangitis in the setting of biliary tract obstruction due to pancreatic adenocarcinoma. Had elevated WBC and has been febrile to 100.3. Patient received 2 L of fluid bolus upon arrival to which his blood pressure responded to. Additionally, lactic acid has trended down. We will continue IV fluids with D5Ns at 125mL an hour and broad-spectrum antibiotics with cefepime and Flagyl. 11/29 Blood cultures came back positive for gram negative rods with enterobacter and klebsiella and gram positive rods which is likely a contaminant. Spoke with ID who recommend switching antibiotics from metronidazole and cefepime to ertapenem and obtain repeat blood cultures GI has performed an ERCP and placed 2 biliary stents. LFTs improving (2) Obstructive jaundice due to cancer Current Visit: No Status: Acute Assessment and Plan: Obstructive jaundice in the setting of pancreatic adenocarcinoma involving the head of the pancreas. Patient underwent ERCP with stent placement in September 2017. However it appears that he has become re-obstructed. At this time patient appears to be responding to fluid and antibiotic treatment and his white blood cell count and lactic acid have trended down. He has elevated alkphos and bilirubin GI plan for ERCP today (3) Pancreatic cancer Current Visit: No Status: Acute Assessment and Plan: Pancreatic adenocarcinoma with complete SMA encasement without evidence of thrombosis. Patient status post first cycle of gemcitabine and Abraxane. Oncology following (4) Chronic pain Current Visit: No Status: Acute Assessment and Plan: Pain management (5) Diabetes mellitus Current Visit: No Status: Acute Assessment and Plan: Insulin as needed. Monitor fingersticks. Currently NPO and on D5 (6) Hypertension Current Visit: No Status: Acute Assessment and Plan: Patient borderline hypotensive. We will hold patient's home antihypertensives for now (7) Hypokalemia Current Visit: No Status: Acute Assessment and Plan: Replete potassium (8) Severe protein-energy malnutrition Current Visit: Yes Status: Acute Assessment and Plan: Likely 2/2 to pancreatic adenocarcinoma. Follow dietary recs DVT Prophylaxis: Heparin sc - Time Spent with Patient Total time spent is greater than 50% in coordination of care (as documented) at patient's floor/unit and/or counseling patient: Internal Medicine: Result - Labs CBC & Chem 7: 11/29/17 06:39 11/29/17 06:39 Labs: Short CBC 11/29/17 Range/Units 06:39 WBC 9.0 (4.3-11.1) K/mcL Hgb 11.9 L (12.9-16.9) g/dL Hct 34.7 L (37.5-50.1) % Plt Count 188 (140-400) K/mcL Neutrophils # 8.3 (1.6-8.9) K/mcL BMP 11/29/17 06:39 Sodium 133 L Potassium 3.9 Chloride 103 Carbon Dioxide 25 BUN 10 Creatinine 0.35 L Glucose 143 H Calcium 8.0 L Liver Function 11/29/17 Range/Units 06:39 Total Bilirubin 5.1 H (0.3-1.0) mg/dL AST 59 H (13-39) Units/L ALT 190 H (7-52) Units/L Alkaline Phosphatase 435 H (34-104) Units/L Albumin 2.6 L (3.5-5.7) g/dL Consult Discharge Plan - Plan Referrals: Sona Quezada, SKIN [employer]VER [Primary Care Provider] - (1) Sepsis Qualifiers: Sepsis type: sepsis due to unspecified organism Qualified Code(s): A41.9 - Sepsis, unspecified organism (3) Pancreatic cancer Qualifiers: Pancreatic malignancy location: unspecified Qualified Code(s): C25.9 - Malignant neoplasm of pancreas, unspecified (4) Chronic pain Qualifiers: Chronic pain type: other chronic pain Qualified Code(s): G89.29 - Other chronic pain (6) Hypertension Qualifiers: Hypertension type: essential hypertension Qualified Code(s): I10 - Essential (primary) hypertension
[2017-11-29] MEDS: Ertapenem 1,000 MG in 0.9 % Sodium Chloride Mini Bag 100 ML IVPB SCH (11:20)
[2017-11-29] MEDS: Nicotine 21 MG PATCH.TD24 TD SCH (16:53)
[2017-11-30] MEDS: Insulin LISPRO 300 UNITS/3 ML VIAL SQ SCH ×5 (00:35→21:36)
[2017-11-30] MEDS: OXYCODONE Oral CONC 10 MG/0.5 ML ORAL.SYG SL PRN ×3 (00:36→17:18)
[2017-11-30] MEDS: *HR* Heparin 5,000 UNIT/ML VIAL SQ SCH ×3 (05:56→21:00)
[2017-11-30 06:51] LABS: Basophils % 0.2 %; Eosinophils # 0.1 K/mcL (0.0-0.6); Eosinophils % 2.3 %; Hemoglobin 12.9 g/dL (12.9-16.9); Immature Granulocytes % 0.5 % (0-4); Lymphocytes # 0.8 K/mcL (0.6-4.6); Lymphocytes % 19.1 %; Mean Corpuscular HGB Conc 34.9 g/dL (31.6-35.5); Mean Corpuscular Hemoglobin 30.4 pg (28.0-33.3); Mean Corpuscular Volume 87.3 fL (83.0-100.0); Mean Platelet Volume 12.2 fL (9.4-12.4); Monocytes # 0.2 K/mcL (0.0-1.3); Monocytes % 5.2 %; Neutrophils # 3.2 K/mcL (1.6-8.9); Platelet Count 187 K/mcL (140-400); Red Blood Count 4.24 M/mcL (4.19-5.50); Red Cell Distribution Width 14.5 % (11.5-14.5); Segmented Neutrophils % 72.7 %
--- NOTE | 2017-11-30 08:59 | Internal Med Progress Note ---
Hospitalist Progress Note - Encounter Date of Encounter: 11/30/17 Time of Encounter: 09:00 - Subjective Interval History: No acute events overnight. - Exam Vitals: Temp Pulse Resp BP Pulse Ox 98 F 69 16 109/76 93 11/30/17 07:30 11/30/17 07:30 11/30/17 07:30 11/30/17 07:30 11/30/17 07:30 Exam: General: Alert and oriented 3. Lying in bed slightly lethargic but in no acute distress Skin:Normal color, no rash, no lesions. HEENT:EOM, pupils equal, round and reactive; Has positive scleral icterus bilaterally Cardiovascular:Normal S1 & S2, no rubs, murmurs or gallops. No JVD. Pulse regular. Lungs:Normal breath sounds, no wheezes or crackles. Abdomen:Soft, diffuse tenderness to palpation. Positive bowel sounds Extremities:No deformity, no edema or tenderness, no joint swelling or clubbing. Neurological:Normal cognition and motor skills. Radial nerves II through XII intact. No pronator drift. Subtle asterixis. - Assessment and Plan (1) Sepsis Current Visit: No Status: Acute Assessment and Plan: Sepsis likely secondary to acute cholangitis in the setting of biliary tract obstruction due to pancreatic adenocarcinoma. Had elevated WBC and has been febrile to 100.3. Patient received 2 L of fluid bolus upon arrival to which his blood pressure responded to. Additionally, lactic acid has trended down. We will continue IV fluids with D5Ns at 125mL an hour and broad-spectrum antibiotics with cefepime and Flagyl. 11/30 Blood cultures came back positive for gram negative rods with enterobacter and klebsiella, and gram positive rods which is likely a contaminant. Spoke with ID who recommend switching antibiotics from metronidazole and cefepime to ertapenem and obtain repeat blood cultures. Continue ertapenem GI has performed an ERCP and placed 2 biliary stents. LFTs improving (2) Obstructive jaundice due to cancer Current Visit: No Status: Acute Assessment and Plan: Obstructive jaundice in the setting of pancreatic adenocarcinoma involving the head of the pancreas. Patient underwent ERCP with stent placement in September 2017. However it appears that he has become re-obstructed. At this time patient appears to be responding to fluid and antibiotic treatment and his white blood cell count and lactic acid have trended down. He has elevated alkphos and bilirubin GI plan for ERCP today (3) Pancreatic cancer Current Visit: No Status: Acute Assessment and Plan: Pancreatic adenocarcinoma with complete SMA encasement without evidence of thrombosis. Patient status post first cycle of gemcitabine and Abraxane. Oncology following (4) Chronic pain Current Visit: No Status: Acute Assessment and Plan: Pain management (5) Diabetes mellitus Current Visit: No Status: Acute Assessment and Plan: Insulin as needed. Monitor fingersticks. Currently NPO and on D5 (6) Hypertension Current Visit: No Status: Acute Assessment and Plan: Patient borderline hypotensive. We will hold patient's home antihypertensives for now (7) Hypokalemia Current Visit: No Status: Acute Assessment and Plan: Replete potassium (8) Severe protein-energy malnutrition Current Visit: Yes Status: Acute Assessment and Plan: Likely 2/2 to pancreatic adenocarcinoma. Follow dietary recs DVT Prophylaxis: Heparin sc - Time Spent with Patient Total time spent is greater than 50% in coordination of care (as documented) at patient's floor/unit and/or counseling patient: Internal Medicine: Result - Labs CBC & Chem 7: 11/30/17 06:36 11/30/17 06:36 Labs: Short CBC 11/30/17 Range/Units 06:36 WBC 4.4 D (4.3-11.1) K/mcL Hgb 12.9 (12.9-16.9) g/dL Hct 37.0 L (37.5-50.1) % Plt Count 187 (140-400) K/mcL Neutrophils # 3.2 (1.6-8.9) K/mcL Consult Discharge Plan - Plan Referrals: Sona Quezada, ARCHITECTURAL REPRESENTATIVE [Primary Care Provider] - (1) Sepsis Qualifiers: Sepsis type: sepsis due to unspecified organism Qualified Code(s): A41.9 - Sepsis, unspecified organism (3) Pancreatic cancer Qualifiers: Pancreatic malignancy location: unspecified Qualified Code(s): C25.9 - Malignant neoplasm of pancreas, unspecified (4) Chronic pain Qualifiers: Chronic pain type: other chronic pain Qualified Code(s): G89.29 - Other chronic pain (6) Hypertension Qualifiers: Hypertension type: essential hypertension Qualified Code(s): I10 - Essential (primary) hypertension
[2017-11-30] MEDS: Ertapenem 1,000 MG in 0.9 % Sodium Chloride Mini Bag 100 ML IVPB SCH (09:14)
[2017-11-30] MEDS: Nicotine 21 MG PATCH.TD24 TD SCH (09:15)
[2017-11-30 10:02] LABS: Alanine Aminotransferase 278 Units/L (7-52); Albumin 2.8 g/dL (3.5-5.7); Albumin/Globulin Ratio 1.1 (1.1-2.2); Alkaline Phosphatase 436 Units/L (34-104); Aspartate Amino Transferase 308 Units/L (13-39); Bilirubin,Total 4.7 mg/dL (0.3-1.0); Blood Urea Nitrogen 9 mg/dL (8-23); Calcium 8.2 mg/dL (8.6-10.3); Carbon Dioxide 25 mEq/L (23-29); Chloride 101 mEq/L (98-107); Globulin 2.5 g/dL (2.4-3.5); Glucose 146 mg/dL (70-105); Osmolality,Calculated 279 (280-300); Phosphorous 2.6 mg/dL (2.7-4.5); Potassium 3.7 mEq/L (3.5-5.1); Sodium 134 mEq/L (136-145); Total Protein 5.3 g/dL (6.4-8.9)
[2017-11-30 11:19] LABS: BUN/Creatinine Ratio 26 (6-26); eGFR For Non-African Americans > 60 (> 60)
[2017-11-30] MEDS ORDERED: Dextrose Gel 15 GM/37.5 ML TUBE PO PRN ×2 (12:07)
[2017-11-30] MEDS ORDERED: *HR* Dextrose 50 % in Water (Syg) 50 ML SYRINGE IVP PRN (12:07)
[2017-11-30] MEDS ORDERED: D5% in Water 1,000 ML IVC PRN (12:07)
[2017-12-01] MEDS: OXYCODONE Oral CONC 10 MG/0.5 ML ORAL.SYG SL PRN ×4 (00:30→22:30)
[2017-12-01] MEDS: *HR* Heparin 5,000 UNIT/ML VIAL SQ SCH ×3 (05:01→22:31)
[2017-12-01 05:32] LABS: Basophils % 0.6 %; Eosinophils # 0.1 K/mcL (0.0-0.6); Eosinophils % 1.9 %; Hemoglobin 13.4 g/dL (12.9-16.9); Immature Granulocytes % 0.3 % (0-4); Lymphocytes # 1.2 K/mcL (0.6-4.6); Lymphocytes % 38.5 %; Mean Corpuscular HGB Conc 34.4 g/dL (31.6-35.5); Mean Corpuscular Hemoglobin 29.9 pg (28.0-33.3); Mean Corpuscular Volume 87.1 fL (83.0-100.0); Monocytes # 0.4 K/mcL (0.0-1.3); Monocytes % 12.9 %; Neutrophils # 1.5 K/mcL (1.6-8.9); Platelet Count 192 K/mcL (140-400); Red Blood Count 4.48 M/mcL (4.19-5.50); Red Cell Distribution Width 14.2 % (11.5-14.5); Segmented Neutrophils % 45.8 %
[2017-12-01 05:52] LABS: Alanine Aminotransferase 227 Units/L (7-52); Albumin/Globulin Ratio 1.2 (1.1-2.2); Alkaline Phosphatase 441 Units/L (34-104); Aspartate Amino Transferase 156 Units/L (13-39); BUN/Creatinine Ratio 28 (6-26); Bilirubin,Total 4.2 mg/dL (0.3-1.0); Blood Urea Nitrogen 8 mg/dL (8-23); Calcium 8.4 mg/dL (8.6-10.3); Carbon Dioxide 26 mEq/L (23-29); Chloride 100 mEq/L (98-107); Globulin 2.6 g/dL (2.4-3.5); Glucose 170 mg/dL (70-105); Magnesium 2.2 mg/dL (1.6-2.6); Osmolality,Calculated 276 (280-300); Phosphorous 2.5 mg/dL (2.7-4.5); Potassium 3.8 mEq/L (3.5-5.1); Sodium 132 mEq/L (136-145); Total Protein 5.6 g/dL (6.4-8.9); eGFR For Non-African Americans > 60 (> 60)
[2017-12-01] MEDS: Insulin LISPRO 300 UNITS/3 ML VIAL SQ SCH ×4 (08:22→22:31)
[2017-12-01] MEDS: Nicotine 21 MG PATCH.TD24 TD SCH (08:25)
[2017-12-01] MEDS: Ertapenem 1,000 MG in 0.9 % Sodium Chloride Mini Bag 100 ML IVPB SCH (08:26)
[2017-12-01] MEDS ORDERED: Potassium Phosphate 44 MEQ in 0.9 % Sodium Chloride 250 ML IVPB ONE (08:45)
--- NOTE | 2017-12-01 10:32 | Internal Med Progress Note ---
Hospitalist Progress Note - Encounter Date of Encounter: 12/01/17 Time of Encounter: 10:30 - Subjective Interval History: No acute events overnight. - Exam Vitals: Temp Pulse Resp BP Pulse Ox 98 F 57 16 124/74 94 12/01/17 07:12 12/01/17 07:12 12/01/17 07:12 12/01/17 07:12 12/01/17 07:12 Exam: General: Alert and oriented 3. Lying in bed slightly lethargic but in no acute distress Skin:Normal color, no rash, no lesions. HEENT:EOM, pupils equal, round and reactive; Has positive scleral icterus bilaterally Cardiovascular:Normal S1 & S2, no rubs, murmurs or gallops. No JVD. Pulse regular. Lungs:Normal breath sounds, no wheezes or crackles. Abdomen:Soft, diffuse tenderness to palpation. Positive bowel sounds Extremities:No deformity, no edema or tenderness, no joint swelling or clubbing. Neurological:Normal cognition and motor skills. Radial nerves II through XII intact. No pronator drift. Subtle asterixis. - Assessment and Plan (1) Sepsis Current Visit: No Status: Acute Assessment and Plan: Sepsis likely secondary to acute cholangitis in the setting of biliary tract obstruction due to pancreatic adenocarcinoma. Had elevated WBC and has been febrile to 100.3. Patient received 2 L of fluid bolus upon arrival to which his blood pressure responded to. Additionally, lactic acid has trended down. We will continue IV fluids with D5Ns at 125mL an hour and broad-spectrum antibiotics with cefepime and Flagyl. 12/01 Blood cultures came back positive for gram negative rods with enterobacter and klebsiella, and gram positive rods which is likely a contaminant. Spoke with ID who recommend switching antibiotics from metronidazole and cefepime to ertapenem and obtain repeat blood cultures. Continue ertapenem GI has performed an ERCP and placed 2 biliary stents. LFTs improving. Follow up repeat blood cultures and ID recs for discharge planning (2) Obstructive jaundice due to cancer Current Visit: No Status: Acute Assessment and Plan: Obstructive jaundice in the setting of pancreatic adenocarcinoma involving the head of the pancreas. Patient underwent ERCP with stent placement in September 2017. However it appears that he has become re-obstructed. At this time patient appears to be responding to fluid and antibiotic treatment and his white blood cell count and lactic acid have trended down. He has elevated alkphos and bilirubin Pt is s/p ERCP with placement of 2 stents (3) Pancreatic cancer Current Visit: No Status: Acute Assessment and Plan: Pancreatic adenocarcinoma with complete SMA encasement without evidence of thrombosis. Patient status post first cycle of gemcitabine and Abraxane. Oncology following (4) Chronic pain Current Visit: No Status: Acute Assessment and Plan: Pain management (5) Diabetes mellitus Current Visit: No Status: Acute Assessment and Plan: Insulin as needed. Monitor fingersticks. Currently NPO and on D5 (6) Hypertension Current Visit: No Status: Acute Assessment and Plan: Patient borderline hypotensive. We will hold patient's home antihypertensives for now (7) Hypokalemia Current Visit: No Status: Acute Assessment and Plan: Replete potassium (8) Severe protein-energy malnutrition Current Visit: Yes Status: Acute Assessment and Plan: Likely 2/2 to pancreatic adenocarcinoma. Follow dietary recs DVT Prophylaxis: Heparin sc - Time Spent with Patient Total time spent is greater than 50% in coordination of care (as documented) at patient's floor/unit and/or counseling patient: Internal Medicine: Result - Labs CBC & Chem 7: 12/01/17 05:19 12/01/17 05:19 Labs: Short CBC 12/01/17 Range/Units 05:19 WBC 3.2 L (4.3-11.1) K/mcL Hgb 13.4 (12.9-16.9) g/dL Hct 39.0 (37.5-50.1) % Plt Count 192 (140-400) K/mcL Neutrophils # 1.5 L (1.6-8.9) K/mcL BMP 11/30/17 12/01/17 06:36 05:19 Sodium 132 L Potassium 3.8 Chloride 100 Carbon Dioxide 26 BUN 8 Creatinine 0.35 L 0.29 L Glucose 170 H Calcium 8.4 L Liver Function 12/01/17 Range/Units 05:19 Total Bilirubin 4.2 H (0.3-1.0) mg/dL AST 156 H (13-39) Units/L ALT 227 H (7-52) Units/L Alkaline Phosphatase 441 H (34-104) Units/L Albumin 3.0 L (3.5-5.7) g/dL Consult Discharge Plan - Plan Referrals: Sona Quezada [employer] [Primary Care Provider] - (1) Sepsis Qualifiers: Sepsis type: sepsis due to unspecified organism Qualified Code(s): A41.9 - Sepsis, unspecified organism (3) Pancreatic cancer Qualifiers: Pancreatic malignancy location: unspecified Qualified Code(s): C25.9 - Malignant neoplasm of pancreas, unspecified (4) Chronic pain Qualifiers: Chronic pain type: other chronic pain Qualified Code(s): G89.29 - Other chronic pain (6) Hypertension Qualifiers: Hypertension type: essential hypertension Qualified Code(s): I10 - Essential (primary) hypertension
[2017-12-01] MEDS: Ringers Solution, Lactated 1,000 ML IVC SCH ×2 (20:01→20:02)
[2017-12-02] MEDS: OXYCODONE Oral CONC 10 MG/0.5 ML ORAL.SYG SL PRN ×2 (05:10→14:25)
[2017-12-02] MEDS: *HR* Heparin 5,000 UNIT/ML VIAL SQ SCH ×2 (05:10→14:18)
[2017-12-02 07:15] LABS: Basophils % 0.4 %; Eosinophils % 0.6 %; Hematocrit 38.3 % (37.5-50.1); Hemoglobin 13.2 g/dL (12.9-16.9); Immature Granulocytes % 0.4 % (0-4); Lymphocytes # 1.1 K/mcL (0.6-4.6); Lymphocytes % 22.6 %; Mean Corpuscular HGB Conc 34.5 g/dL (31.6-35.5); Mean Corpuscular Hemoglobin 30.3 pg (28.0-33.3); Mean Corpuscular Volume 87.8 fL (83.0-100.0); Mean Platelet Volume 12.2 fL (9.4-12.4); Monocytes # 0.5 K/mcL (0.0-1.3); Monocytes % 10.6 %; Neutrophils # 3.2 K/mcL (1.6-8.9); Platelet Count 177 K/mcL (140-400); Red Blood Count 4.36 M/mcL (4.19-5.50); Red Cell Distribution Width 14.4 % (11.5-14.5); Segmented Neutrophils % 65.4 %
[2017-12-02 07:30] LABS: Alanine Aminotransferase 171 Units/L (7-52); Albumin/Globulin Ratio 1.2 (1.1-2.2); Alkaline Phosphatase 524 Units/L (34-104); Aspartate Amino Transferase 106 Units/L (13-39); BUN/Creatinine Ratio 26 (6-26); Bilirubin,Total 3.3 mg/dL (0.3-1.0); Blood Urea Nitrogen 8 mg/dL (8-23); Calcium 8.5 mg/dL (8.6-10.3); Carbon Dioxide 23 mEq/L (23-29); Chloride 101 mEq/L (98-107); Globulin 2.5 g/dL (2.4-3.5); Glucose 171 mg/dL (70-105); Magnesium 2.2 mg/dL (1.6-2.6); Osmolality,Calculated 276 (280-300); Phosphorous 3.2 mg/dL (2.7-4.5); Potassium 3.9 mEq/L (3.5-5.1); Sodium 132 mEq/L (136-145); Total Protein 5.5 g/dL (6.4-8.9); eGFR For Non-African Americans > 60 (> 60)
[2017-12-02] MEDS: Nicotine 21 MG PATCH.TD24 TD SCH (08:06)
[2017-12-02] MEDS: Ertapenem 1,000 MG in 0.9 % Sodium Chloride Mini Bag 100 ML IVPB SCH (08:07)
[2017-12-02] MEDS: Insulin LISPRO 300 UNITS/3 ML VIAL SQ SCH ×3 (08:08→16:37)
[2017-12-02] MEDS: *HR* HYDROcodone/Acet 10/325 mg TABLET PO PRN ×2 (09:12→16:36)
--- NOTE | 2017-12-02 10:43 | Palliative Progress Note ---
Date of Encounter: 12/02/17 Time of Encounter: 10:35 - Assessment and plan (1) Abdominal pain Current Visit: Yes Status: Acute Assessment and plan: Utilizing Oxycodone for pain - taken x 4 last 24 hours. Monitor Qualifiers: Abdominal location: lower abdomen, unspecified Qualified Code(s): R10.30 - Lower abdominal pain, unspecified (2) Nausea Current Visit: Yes Status: Acute Assessment and plan: Resolved - good intake. Antiemetics still available if needed. (3) Advance care planning Current Visit: Yes Status: Acute Assessment and plan: Patient desired to rediscuss DNR as he was considering changing his code status back to full code. Discussed again at length that his current status means that he would get full aggressive medical care up to the point of a cardiac arrest or needing intubated. He states to his that he does not want placed on life support machines. After discussion, he decided to keep code status at DNR/DNI as established last week. His did ask, how hospice would be set up if oncology doesn't offer chemotherapy, and I informed her that the [facility] has social work available and referral could be made from there. Patient is very weak - offered that social service could set up home health for therapy, however, he is currently declining. Instructed that if he were to change his mind to inform his nurse and referral could be made . (4) Pancreatic cancer Current Visit: No Status: Acute Qualifiers: Pancreatic malignancy location: unspecified Qualified Code(s): C25.9 - Malignant neoplasm of pancreas, unspecified (5) Obstructive jaundice due to cancer Current Visit: No Status: Acute (6) Sepsis Current Visit: No Status: Acute Qualifiers: Sepsis type: sepsis due to unspecified organism Qualified Code(s): A41.9 - Sepsis, unspecified organism - Time Spent With Patient Total time spent is greater than 50% in coordination of care (as documented) at patient's floor/unit and/or counseling patient: - Subjective Interval history: Patient remains in hospital as blood cultures had to be repeated this weekend. Patient's at bedside. Dr. Smith present in room - he may be discharged later today after discussed with infectious disease. BIlirubin has decreased to 3.3. States he is comfortable, but just very weak. Has been eating well, bowels moving well. - Constitutional Vitals: Abnormal lab results Sodium 132 mEq/L (136-145) L 12/02/17 06:40 Creatinine 0.31 mg/dL (0.70-1.30) L 12/02/17 06:40 Glucose 171 mg/dL (70-105) H 12/02/17 06:40 POC Glucose 148 mg/dL (70-99) H 12/01/17 19:25 Calculated Osmolality 276 (280-300) L 12/02/17 06:40 Calcium 8.5 mg/dL (8.6-10.3) L 12/02/17 06:40 Total Bilirubin 3.3 mg/dL (0.3-1.0) H 12/02/17 06:40 AST 106 Units/L (13-39) H 12/02/17 06:40 ALT 171 Units/L (7-52) H 12/02/17 06:40 Alkaline Phosphatase 524 Units/L (34-104) H 12/02/17 06:40 Serum Total Protein 5.5 g/dL (6.4-8.9) L 12/02/17 06:40 Albumin 3.0 g/dL (3.5-5.7) L 12/02/17 06:40 General appearance: Present: no acute distress - Respiratory Respiratory exam: Present: decreased breath sounds, CTAB - Cardiovascular Cardiovascular exam: Present: +S1, +S2 - GI/Abdominal GI/Abdominal exam: Present: hypoactive bowel sounds, soft - Extremities Exam Extremities exam: Present: normal capillary refill, normal inspection - Neurological Exam Neurological exam: Present: alert, oriented X3, strengths equal and symetr throughout - Skin Skin exam: Present: dry, pallor, warm Palliative Quality Palliative Quality: Screen for Code Status: Yes, Screen for Goals of Care: Yes, Screen for Pain: Yes, If Pain Regimen Started, Initiate Bowel Regimen: NA ( loose stools), Screen for Nausea/Vomitting: Yes Code Status: 11/27/17 15:25 DNR [Resuscitation Status: Active] [RES] Routine Comment: Resuscitation Status: [id number] - Labs CBC & Chem 7: 12/02/17 06:40 12/02/17 06:40 Labs: Laboratory Results - last 24 hr 12/01/17 12/01/17 12/01/17 11:32 17:02 19:25 WBC RBC Hgb Hct MCV MCH MCHC RDW Plt Count MPV Immature Gran % Seg Neutrophils % Lymphocytes % Monocytes % Eosinophils % Basophils % Neutrophils # Lymphocytes # Monocytes # Eosinophils # Basophils # Sodium Potassium Chloride Carbon Dioxide BUN Creatinine Est GFR ( Amer) Est GFR (Non-Af Amer) BUN/Creatinine Ratio Glucose POC Glucose 248 H 130 H 148 H Calculated Osmolality Calcium Phosphorus Magnesium Total Bilirubin AST ALT Alkaline Phosphatase Serum Total Protein Albumin Globulin Albumin/Globulin Ratio 12/02/17 12/02/17 06:40 06:40 WBC 4.9 D RBC 4.36 Hgb 13.2 Hct 38.3 MCV 87.8 MCH 30.3 MCHC 34.5 RDW 14.4 Plt Count 177 MPV 12.2 Immature Gran % 0.4 Seg Neutrophils % 65.4 Lymphocytes % 22.6 Monocytes % 10.6 Eosinophils % 0.6 Basophils % 0.4 Neutrophils # 3.2 Lymphocytes # 1.1 Monocytes # 0.5 Eosinophils # 0.0 Basophils # 0.0 Sodium 132 L Potassium 3.9 Chloride 101 Carbon Dioxide 23 BUN 8 Creatinine 0.31 L Est GFR ( Amer) > 60 Est GFR (Non-Af Amer) > 60 BUN/Creatinine Ratio 26 Glucose 171 H POC Glucose Calculated Osmolality 276 L Calcium 8.5 L Phosphorus 3.2 Magnesium 2.2 Total Bilirubin 3.3 H AST 106 H ALT 171 H Alkaline Phosphatase 524 H Serum Total Protein 5.5 L Albumin 3.0 L Globulin 2.5 Albumin/Globulin Ratio 1.2 Consult Discharge Plan - Plan Referrals: Sona Quezada CNP [Primary Care Provider] - 12/11/17 8:15 am
--- NOTE | 2017-12-02 14:39 | Infectious Disease Consult ---
Date of Encounter: 12/02/17 Time of Encounter: 14:40 Assessment and Plan (1) Severe sepsis Status: Resolved Assessment and plan: On admission, met 3 SIRS criteria with fever 100.3, heart rate >90, and leukocytosis. Also hypotensive at 87/52, responsive to IVF. Lactic acid normal at 1.9. No longer meets sepsis criteria. Leukocytosis resolved. All vital signs within normal limits. Likely secondary to acute cholangitis in the setting of biliary tract obstruction due to pancreatic adenocarcinoma. Blood culture 11/27 showed Klebsiella, wong-sensitive. Blood cultures 11/29 x2 sets are NGTD. (2) Bacteremia Status: Acute Assessment and plan: Causative organism: Klebsiella Source: likely secondary to acute cholangitis in the setting of biliary tract obstruction due to pancreatic adenocarcinoma. Blood culture 11/27 showed Klebsiella, wong-sensitive. Blood cultures 11/29 x2 sets are NGTD. Cefepime and flagyl discontinued. Stop ertapenem. Switch to PO augmentin or omnicef. Monitor renal function and for drug toxicity and dose-adjust antibiotics. (3) Obstructive jaundice due to cancer Status: Acute Assessment and plan: ERCP with stent placement in September 2017. ERCP on 11/28 showed current stent was clogged. Obstructing sludge was removed and two temporary stents placed. AST/ALT and bilirubin are improving. Management per GI. (4) Pancreatic cancer Status: Chronic Assessment and plan: Pancreatic adenocarcinoma with complete SMA encasement diagnosed September 2017. CT chest/abd/pelvis 11/20 showed interval progression of pancreatic mass with progression of metastatic cancer within liver and within localized lymph nodes. Spiculated nodule in left lower lobe, concerning for metastatic disease. Status post first cycle of gemcitabine and abraxane. Management per Oncology. Qualifiers: Pancreatic malignancy location: unspecified Qualified Code(s): C25.9 - Malignant neoplasm of pancreas, unspecified (5) Hypokalemia Status: Resolved Assessment and plan: Replete potassium. Potassium level normalized and stable. (6) Chronic pain Status: Chronic Assessment and plan: Chronic low back pain status post stimulator placement. Pain management per primary team and palliative care. Qualifiers: Chronic pain type: other chronic pain Qualified Code(s): G89.29 - Other chronic pain (7) Diabetes mellitus Status: Chronic Assessment and plan: Insulin as needed. Qualifiers: Diabetes mellitus type: type 2 Diabetes mellitus longterm insulin use: without longterm use Diabetes mellitus complication status: with unspecified complications Qualified Code(s): E11.8 - Type 2 diabetes mellitus with unspecified complications (8) Hypertension Status: Chronic Assessment and plan: Was hypotensive on arrival. Hold antihypertensives. Blood pressure is normalized and stable. Qualifiers: Hypertension type: essential hypertension Qualified Code(s): I10 - Essential (primary) hypertension Infectious Disease HPI - Data of Consult Requesting Physician: Anna Smith MD Primary Care Provider: Sona Quezada CNP - Consult Narrative History of present illness: Mr. Chauhan is a 62 year old male with past medical history of COPD, chronic low back pain status post stimulator placement, HTN, HLD, and diabetes. Patient is admitted on 11/26/17 for sepsis, obstructive jaundice, and pancreatic cancer. We are consulted on 12/02/17 for sepsis. Briefly, the patient is a 62 year old male with past medical history as stated above. On review of medical records, patient was recently hospitalized in September 2017 for weight loss and nausea/vomiting for several months. CT showed mass at head of pancreas suspicious for malignancy with complete encasement of superior mesenteric artery. Patient underwent ERCP and biliary stent placement. Fine needle aspiration showed pancreatic adenocarcinoma. Received first cycle of gemcitabine and abraxane on 11/25. The patient presented to [place] ED with complaints of chills, fatigue, vomiting , and diarrhea. CT head was negative. He was transferred to [place] and admitted for further evaluation and management. On admission, patient was mildly hypotensive. Labs showed elevated WBC at 12.1, elevated total bilirubin at 10.0 , transaminitis, and lactic acid 1.9. CXR showed mild bibasilar atelectasis. Blood cultures were obtained. Patient was started on broad spectrum antibiotics with cefepime and flagyl. GI was consulted for biliary tract obstruction. Oncology was consulted for pancreatic cancer. Palliative care was consulted to help with goals of care discussion. Since admission, blood pressure has normalized. All other vital signs remain stable. WBC trending down. ERCP performed on 11/28 showed current stent was clogged Obstructing sludge was removed and two temporary stents placed. AST/ALT and bilirubin are improving. Blood cultures showed klebsiella. ID consulted. Switched from metronidazole and cefepime to ertapenem. Repeat blood cultures obtained. During my exam today, the patient endorses the history as stated above. Patient is resting comfortably in bed. No acute events overnight. Patient states he feels much better than when he was first admitted. States he feels back to baseline. Reports jaundice is all gone. And he denies weakness. Denies abdominal pain. Only pain reported is chronic low back pain. Denies nausea/ vomiting. Denies fever, chills. Denies chest pain, shortness of breath, swelling. Denies numbness, tingling. Denies urinary or bowel changes. CC: Anna Smith MD Past Med Surg Social Fam HX - Past Medical History Medical history: diabetes, hyperlipidemia, hypertension Additional medical history: chronic back pain Psychiatric history: no psych history - Past Surgical History Surgical History: other Additional surgical history: Weekend surgery I &D by Dr. Cramer. Spinal Stimulator - Social History Smoking Status: Current every day smoker Packs per day: 1 Smokeless Tobacco Status: No Alcohol use: none Drug use: none - Family History Mother Adopted: Ursina: [place] of Family Member: Yes, Fraternal Living Status: Age at : 65 Cause of : End Stage Kidney Failure Hx Family Cardiac Disorders: No Hx Family Respiratory Disorders: No Hx Family GI Disorders: No Hx Family Genitourinary Disorders: Yes Hx Family Endocrine Disorder: Yes Hx Family Neuromuscular Disorders: No Hx Family Neurologic Disorders: No Hx Family HEENT Disorders: No Hx Family Autoimmune Disorders: No Paternal Grandmother Living Status: Hx Family Cardiac Disorders: Yes Hx Family Respiratory Disorders: No Hx Family Cancer: No Hx Family GI Disorders: No Hx Family Endocrine Disorder: Yes Hx Family Neuromuscular Disorders: No Hx Family Neurologic Disorders: No Hx Family HEENT Disorders: No Hx Family Autoimmune Disorders: No Maternal Grandmother Name: Mervat Chauhan Living Status: Age at : 79 Hx Family Cardiac Disorders: Yes Hx Family Endocrine Disorder: Yes Maternal Grandfather Name: Vinod Tien Living Status: Age at : 81 Cause of : Prostate Cancer Hx Family Cardiac Disorders: Yes Hx Family Cancer: Yes (Prostate Cancer) Brother Name: Casey San Living Status: Age at : 55 Hx Family Respiratory Disorders: Yes (COPD) Hx Family Cancer: Yes (Lung) Sister Name: Jody Living Status: Age at : 53 Cause of : Lung Cancer Hx Family Respiratory Disorders: Yes (COPD) Hx Family Cancer: Yes (Lung Cancer) Hx Family Endocrine Disorder: Yes (Diabetes) Infectious Disease-CN:Meds Famotidine [Heartburn Prevention] 20 mg PO BID 06/21/17 [History] Linagliptin [Tradjenta] 5 mg PO DAILY 06/21/17 [History] Metformin HCl [Glucophage] 1,000 mg PO BID 06/21/17 [History] Simvastatin [Zocor] 20 mg PO HS 06/21/17 [History] Alogliptin Benzoate [Alogliptin] 25 mg PO DAILY 11/06/17 [History] HYDROcodone/Acet 10/325 mg [[place] 10-325 mg] 1 tab PO Q6H PRN 11/07/17 [History] Ondansetron [Zofran] 8 mg PO Q8HR PRN #60 tablet 11/14/17 [Rx] Prochlorperazine Maleate [Compazine] 10 mg PO Q6HR PRN #90 tablet 11/14/17 [Rx] Lidocaine/Prilocaine [Emla] 1 appl TP AD #30 gm 11/25/17 [Rx] Amlodipine Besylate 10 mg PO DAILY 11/27/17 [History] Glimepiride [Amaryl] 4 mg PO Q12H 11/27/17 [History] Amoxicillin/Clavulanate [Augmentin] 875 mg PO BIDWM #20 tablet 12/02/17 [Rx] OxyCODONE Oral Soln [OxyCODONE ORAL SOLN] 10 mg SL Q6H PRN 10 Days #300 mls 07/16 [Rx] 3 Allergy/AdvReac Type Severity Reaction Status Date / Time No Known Allergies Allergy Verified 11/27/17 10:17 Exam - Constitutional Vitals: Temp Pulse Resp BP Pulse Ox 97.8 F 65 16 118/70 97 12/02/17 12:15 12/02/17 12:15 12/02/17 12:15 12/02/17 12:15 12/02/17 12:15 General appearance: average body habitus, cooperative, no acute distress, no febrile - Head Head exam: Present: atraumatic, normal inspection, normocephalic - Eye Eye exam: Present: EOMI, normal appearance, PERRL, sclera anicteric Pupils: Present: normal accommodation - ENT ENT exam: Present: mucous membranes moist, normal oropharynx - Neck Neck exam: Present: normal inspection - Respiratory Respiratory exam: Present: CTAB. Absent: rales, respiratory distress, rhonchi, wheezes - Cardiovascular Cardiovascular exam: Present: RRR, +S1, +S2 - GI/Abdominal GI/Abdominal exam: Present: normal bowel sounds, soft. Absent: distended, tenderness - Extremities Exam Extremities exam: Present: normal inspection. Absent: joint swelling, pedal edema, tenderness - Back Exam Additional comments: low back pain stimulator - Neurological Exam Neurological exam: Present: alert, oriented X3, no focal deficits - Psychiatric Psychiatric exam: Present: normal affect, normal mood - Skin Skin exam: Present: dry, intact, normal color, warm Infectious Disease CN: Results - Labs CBC & Chem 7: 12/02/17 06:40 12/02/17 06:40 Cultures: Cultures 11/29/17 07:58 Blood Culture - Preliminary Peripheral Venipuncture Culture is incubating and being continuously monitored for growth. Final report to follow. 11/29/17 07:50 Blood Culture - Preliminary Peripheral Venipuncture Culture is incubating and being continuously monitored for growth. Final report to follow. Serology: Serology 12/02/17 12/02/17 12/01/17 Range/Units 06:40 06:40 19:25 WBC 4.9 D (4.3-11.1) K/mcL RBC 4.36 (4.19-5.50) M/mcL Hgb 13.2 (12.9-16.9) g/dL Hct 38.3 (37.5-50.1) % MCV 87.8 (83.0-100.0) fL MCH 30.3 (28.0-33.3) pg MCHC 34.5 (31.6-35.5) g/dL RDW 14.4 (11.5-14.5) % Plt Count 177 (140-400) K/mcL MPV 12.2 (9.4-12.4) fL Immature Gran % 0.4 (0-4) % Seg Neutrophils % 65.4 % Lymphocytes % 22.6 % Monocytes % 10.6 % Eosinophils % 0.6 % Basophils % 0.4 % Neutrophils # 3.2 (1.6-8.9) K/mcL Lymphocytes # 1.1 (0.6-4.6) K/mcL Monocytes # 0.5 (0.0-1.3) K/mcL Eosinophils # 0.0 (0.0-0.6) K/mcL Basophils # 0.0 (0.0-0.2) K/mcL Sodium 132 L (136-145) mEq/L Potassium 3.9 (3.5-5.1) mEq/L Chloride 101 (98-107) mEq/L Carbon Dioxide 23 (23-29) mEq/L BUN 8 (8-23) mg/dL Creatinine 0.31 L (0.70-1.30) mg/dL Est GFR ( Amer) > 60 (> 60) Est GFR (Non-Af Amer) > 60 (> 60) BUN/Creatinine Ratio 26 (6-26) Glucose 171 H (70-105) mg/dL POC Glucose 148 H (70-99) mg/dL Calculated Osmolality 276 L (280-300) Calcium 8.5 L (8.6-10.3) mg/dL Phosphorus 3.2 (2.7-4.5) mg/dL Magnesium 2.2 (1.6-2.6) mg/dL Total Bilirubin 3.3 H (0.3-1.0) mg/dL AST 106 H (13-39) Units/L ALT 171 H (7-52) Units/L Alkaline Phosphatase 524 H (34-104) Units/L Serum Total Protein 5.5 L (6.4-8.9) g/dL Albumin 3.0 L (3.5-5.7) g/dL Globulin 2.5 (2.4-3.5) g/dL Albumin/Globulin Ratio 1.2 (1.1-2.2) 12/01/17 12/01/17 12/01/17 Range/Units 17:02 11:32 07:15 WBC (4.3-11.1) K/mcL RBC (4.19-5.50) M/mcL Hgb (12.9-16.9) g/dL Hct (37.5-50.1) % MCV (83.0-100.0) fL MCH (28.0-33.3) pg MCHC (31.6-35.5) g/dL RDW (11.5-14.5) % Plt Count (140-400) K/mcL MPV (9.4-12.4) fL Immature Gran % (0-4) % Seg Neutrophils % % Lymphocytes % % Monocytes % % Eosinophils % % Basophils % % Neutrophils # (1.6-8.9) K/mcL Lymphocytes # (0.6-4.6) K/mcL Monocytes # (0.0-1.3) K/mcL Eosinophils # (0.0-0.6) K/mcL Basophils # (0.0-0.2) K/mcL Sodium (136-145) mEq/L Potassium (3.5-5.1) mEq/L Chloride (98-107) mEq/L Carbon Dioxide (23-29) mEq/L BUN (8-23) mg/dL Creatinine (0.70-1.30) mg/dL Est GFR ( Amer) (> 60) Est GFR (Non-Af Amer) (> 60) BUN/Creatinine Ratio (6-26) Glucose (70-105) mg/dL POC Glucose 130 H 248 H 142 H (70-99) mg/dL Calculated Osmolality (280-300) Calcium (8.6-10.3) mg/dL Phosphorus (2.7-4.5) mg/dL Magnesium (1.6-2.6) mg/dL Total Bilirubin (0.3-1.0) mg/dL AST (13-39) Units/L ALT (7-52) Units/L Alkaline Phosphatase (34-104) Units/L Serum Total Protein (6.4-8.9) g/dL Albumin (3.5-5.7) g/dL Globulin (2.4-3.5) g/dL Albumin/Globulin Ratio (1.1-2.2) 12/01/17 12/01/17 11/30/17 Range/Units 05:19 05:19 21:10 WBC 3.2 L (4.3-11.1) K/mcL RBC 4.48 (4.19-5.50) M/mcL Hgb 13.4 (12.9-16.9) g/dL Hct 39.0 (37.5-50.1) % MCV 87.1 (83.0-100.0) fL MCH 29.9 (28.0-33.3) pg MCHC 34.4 (31.6-35.5) g/dL RDW 14.2 (11.5-14.5) % Plt Count 192 (140-400) K/mcL MPV 12.0 (9.4-12.4) fL Immature Gran % 0.3 (0-4) % Seg Neutrophils % 45.8 % Lymphocytes % 38.5 % Monocytes % 12.9 % Eosinophils % 1.9 % Basophils % 0.6 % Neutrophils # 1.5 L (1.6-8.9) K/mcL Lymphocytes # 1.2 (0.6-4.6) K/mcL Monocytes # 0.4 (0.0-1.3) K/mcL Eosinophils # 0.1 (0.0-0.6) K/mcL Basophils # 0.0 (0.0-0.2) K/mcL Sodium 132 L (136-145) mEq/L Potassium 3.8 (3.5-5.1) mEq/L Chloride 100 (98-107) mEq/L Carbon Dioxide 26 (23-29) mEq/L BUN 8 (8-23) mg/dL Creatinine 0.29 L (0.70-1.30) mg/dL Est GFR ( Amer) > 60 (> 60) Est GFR (Non-Af Amer) > 60 (> 60) BUN/Creatinine Ratio 28 H (6-26) Glucose 170 H (70-105) mg/dL POC Glucose 141 H (70-99) mg/dL Calculated Osmolality 276 L (280-300) Calcium 8.4 L (8.6-10.3) mg/dL Phosphorus 2.5 L (2.7-4.5) mg/dL Magnesium 2.2 (1.6-2.6) mg/dL Total Bilirubin 4.2 H (0.3-1.0) mg/dL AST 156 H (13-39) Units/L ALT 227 H (7-52) Units/L Alkaline Phosphatase 441 H (34-104) Units/L Serum Total Protein 5.6 L (6.4-8.9) g/dL Albumin 3.0 L (3.5-5.7) g/dL Globulin 2.6 (2.4-3.5) g/dL Albumin/Globulin Ratio 1.2 (1.1-2.2) 11/30/17 11/30/17 11/30/17 Range/Units 16:05 12:05 06:36 WBC (4.3-11.1) K/mcL RBC (4.19-5.50) M/mcL Hgb (12.9-16.9) g/dL Hct (37.5-50.1) % MCV (83.0-100.0) fL MCH (28.0-33.3) pg MCHC (31.6-35.5) g/dL RDW (11.5-14.5) % Plt Count (140-400) K/mcL MPV (9.4-12.4) fL Immature Gran % (0-4) % Seg Neutrophils % % Lymphocytes % % Monocytes % % Eosinophils % % Basophils % % Neutrophils # (1.6-8.9) K/mcL Lymphocytes # (0.6-4.6) K/mcL Monocytes # (0.0-1.3) K/mcL Eosinophils # (0.0-0.6) K/mcL Basophils # (0.0-0.2) K/mcL Sodium 134 L (136-145) mEq/L Potassium 3.7 (3.5-5.1) mEq/L Chloride 101 (98-107) mEq/L Carbon Dioxide 25 (23-29) mEq/L BUN 9 (8-23) mg/dL Creatinine 0.35 L (0.70-1.30) mg/dL Est GFR ( Amer) > 60 (> 60) Est GFR (Non-Af Amer) > 60 (> 60) BUN/Creatinine Ratio 26 (6-26) Glucose 146 H (70-105) mg/dL POC Glucose 193 H 181 H (70-99) mg/dL Calculated Osmolality 279 L (280-300) Calcium 8.2 L (8.6-10.3) mg/dL Phosphorus 2.6 L (2.7-4.5) mg/dL Magnesium 2.0 (1.6-2.6) mg/dL Total Bilirubin 4.7 H (0.3-1.0) mg/dL AST 308 H (13-39) Units/L ALT 278 H (7-52) Units/L Alkaline Phosphatase 436 H (34-104) Units/L Serum Total Protein 5.3 L (6.4-8.9) g/dL Albumin 2.8 L (3.5-5.7) g/dL Globulin 2.5 (2.4-3.5) g/dL Albumin/Globulin Ratio 1.1 (1.1-2.2) 11/30/17 11/30/17 11/30/17 Range/Units 06:36 05:51 00:33 WBC 4.4 D (4.3-11.1) K/mcL RBC 4.24 (4.19-5.50) M/mcL Hgb 12.9 (12.9-16.9) g/dL Hct 37.0 L (37.5-50.1) % MCV 87.3 (83.0-100.0) fL MCH 30.4 (28.0-33.3) pg MCHC 34.9 (31.6-35.5) g/dL RDW 14.5 (11.5-14.5) % Plt Count 187 (140-400) K/mcL MPV 12.2 (9.4-12.4) fL Immature Gran % 0.5 (0-4) % Seg Neutrophils % 72.7 % Lymphocytes % 19.1 % Monocytes % 5.2 % Eosinophils % 2.3 % Basophils % 0.2 % Neutrophils # 3.2 (1.6-8.9) K/mcL Lymphocytes # 0.8 (0.6-4.6) K/mcL Monocytes # 0.2 (0.0-1.3) K/mcL Eosinophils # 0.1 (0.0-0.6) K/mcL Basophils # 0.0 (0.0-0.2) K/mcL Sodium (136-145) mEq/L Potassium (3.5-5.1) mEq/L Chloride (98-107) mEq/L Carbon Dioxide (23-29) mEq/L BUN (8-23) mg/dL Creatinine (0.70-1.30) mg/dL Est GFR ( Amer) (> 60) Est GFR (Non-Af Amer) (> 60) BUN/Creatinine Ratio (6-26) Glucose (70-105) mg/dL POC Glucose 130 H 139 H (70-99) mg/dL Calculated Osmolality (280-300) Calcium (8.6-10.3) mg/dL Phosphorus (2.7-4.5) mg/dL Magnesium (1.6-2.6) mg/dL Total Bilirubin (0.3-1.0) mg/dL AST (13-39) Units/L ALT (7-52) Units/L Alkaline Phosphatase (34-104) Units/L Serum Total Protein (6.4-8.9) g/dL Albumin (3.5-5.7) g/dL Globulin (2.4-3.5) g/dL Albumin/Globulin Ratio (1.1-2.2) 11/29/17 11/29/17 11/29/17 Range/Units 20:37 17:32 12:08 WBC (4.3-11.1) K/mcL RBC (4.19-5.50) M/mcL Hgb (12.9-16.9) g/dL Hct (37.5-50.1) % MCV (83.0-100.0) fL MCH (28.0-33.3) pg MCHC (31.6-35.5) g/dL RDW (11.5-14.5) % Plt Count (140-400) K/mcL MPV (9.4-12.4) fL Immature Gran % (0-4) % Seg Neutrophils % % Lymphocytes % % Monocytes % % Eosinophils % % Basophils % % Neutrophils # (1.6-8.9) K/mcL Lymphocytes # (0.6-4.6) K/mcL Monocytes # (0.0-1.3) K/mcL Eosinophils # (0.0-0.6) K/mcL Basophils # (0.0-0.2) K/mcL Sodium (136-145) mEq/L Potassium (3.5-5.1) mEq/L Chloride (98-107) mEq/L Carbon Dioxide (23-29) mEq/L BUN (8-23) mg/dL Creatinine (0.70-1.30) mg/dL Est GFR ( Amer) (> 60) Est GFR (Non-Af Amer) (> 60) BUN/Creatinine Ratio (6-26) Glucose (70-105) mg/dL POC Glucose 185 H 216 H 177 H (70-99) mg/dL Calculated Osmolality (280-300) Calcium (8.6-10.3) mg/dL Phosphorus (2.7-4.5) mg/dL Magnesium (1.6-2.6) mg/dL Total Bilirubin (0.3-1.0) mg/dL AST (13-39) Units/L ALT (7-52) Units/L Alkaline Phosphatase (34-104) Units/L Serum Total Protein (6.4-8.9) g/dL Albumin (3.5-5.7) g/dL Globulin (2.4-3.5) g/dL Albumin/Globulin Ratio (1.1-2.2) 11/29/17 11/29/17 11/29/17 Range/Units 06:39 06:39 06:25 WBC 9.0 (4.3-11.1) K/mcL RBC 3.99 L (4.19-5.50) M/mcL Hgb 11.9 L (12.9-16.9) g/dL Hct 34.7 L (37.5-50.1) % MCV 87.0 (83.0-100.0) fL MCH 29.8 (28.0-33.3) pg MCHC 34.3 (31.6-35.5) g/dL RDW 14.3 (11.5-14.5) % Plt Count 188 (140-400) K/mcL MPV 12.1 (9.4-12.4) fL Immature Gran % 0.3 (0-4) % Seg Neutrophils % 91.7 % Lymphocytes % 5.9 % Monocytes % 1.8 % Eosinophils % 0.2 % Basophils % 0.1 % Neutrophils # 8.3 (1.6-8.9) K/mcL Lymphocytes # 0.5 L (0.6-4.6) K/mcL Monocytes # 0.2 (0.0-1.3) K/mcL Eosinophils # 0.0 (0.0-0.6) K/mcL Basophils # 0.0 (0.0-0.2) K/mcL Sodium 133 L (136-145) mEq/L Potassium 3.9 (3.5-5.1) mEq/L Chloride 103 (98-107) mEq/L Carbon Dioxide 25 (23-29) mEq/L BUN 10 (8-23) mg/dL Creatinine 0.35 L (0.70-1.30) mg/dL Est GFR ( Amer) > 60 (> 60) Est GFR (Non-Af Amer) > 60 (> 60) BUN/Creatinine Ratio 29 H (6-26) Glucose 143 H (70-105) mg/dL POC Glucose 152 H (70-99) mg/dL Calculated Osmolality 278 L (280-300) Calcium 8.0 L (8.6-10.3) mg/dL Phosphorus 1.8 L (2.7-4.5) mg/dL Magnesium 2.2 (1.6-2.6) mg/dL Total Bilirubin 5.1 H (0.3-1.0) mg/dL AST 59 H (13-39) Units/L ALT 190 H (7-52) Units/L Alkaline Phosphatase 435 H (34-104) Units/L Serum Total Protein 5.3 L (6.4-8.9) g/dL Albumin 2.6 L (3.5-5.7) g/dL Globulin 2.7 (2.4-3.5) g/dL Albumin/Globulin Ratio 1.0 L (1.1-2.2) 11/29/17 11/29/17 11/28/17 Range/Units 04:13 01:13 18:39 WBC (4.3-11.1) K/mcL RBC (4.19-5.50) M/mcL Hgb (12.9-16.9) g/dL Hct (37.5-50.1) % MCV (83.0-100.0) fL MCH (28.0-33.3) pg MCHC (31.6-35.5) g/dL RDW (11.5-14.5) % Plt Count (140-400) K/mcL MPV (9.4-12.4) fL Immature Gran % (0-4) % Seg Neutrophils % % Lymphocytes % % Monocytes % % Eosinophils % % Basophils % % Neutrophils # (1.6-8.9) K/mcL Lymphocytes # (0.6-4.6) K/mcL Monocytes # (0.0-1.3) K/mcL Eosinophils # (0.0-0.6) K/mcL Basophils # (0.0-0.2) K/mcL Sodium (136-145) mEq/L Potassium (3.5-5.1) mEq/L Chloride (98-107) mEq/L Carbon Dioxide (23-29) mEq/L BUN (8-23) mg/dL Creatinine (0.70-1.30) mg/dL Est GFR ( Amer) (> 60) Est GFR (Non-Af Amer) (> 60) BUN/Creatinine Ratio (6-26) Glucose (70-105) mg/dL POC Glucose 118 H 265 H 432 H* (70-99) mg/dL Calculated Osmolality (280-300) Calcium (8.6-10.3) mg/dL Phosphorus (2.7-4.5) mg/dL Magnesium (1.6-2.6) mg/dL Total Bilirubin (0.3-1.0) mg/dL AST (13-39) Units/L ALT (7-52) Units/L Alkaline Phosphatase (34-104) Units/L Serum Total Protein (6.4-8.9) g/dL Albumin (3.5-5.7) g/dL Globulin (2.4-3.5) g/dL Albumin/Globulin Ratio (1.1-2.2) 11/28/17 11/28/17 11/28/17 Range/Units 18:38 05:41 04:07 WBC (4.3-11.1) K/mcL RBC (4.19-5.50) M/mcL Hgb (12.9-16.9) g/dL Hct (37.5-50.1) % MCV (83.0-100.0) fL MCH (28.0-33.3) pg MCHC (31.6-35.5) g/dL RDW (11.5-14.5) % Plt Count (140-400) K/mcL MPV (9.4-12.4) fL Immature Gran % (0-4) % Seg Neutrophils % % Lymphocytes % % Monocytes % % Eosinophils % % Basophils % % Neutrophils # (1.6-8.9) K/mcL Lymphocytes # (0.6-4.6) K/mcL Monocytes # (0.0-1.3) K/mcL Eosinophils # (0.0-0.6) K/mcL Basophils # (0.0-0.2) K/mcL Sodium 132 L (136-145) mEq/L Potassium 3.2 L (3.5-5.1) mEq/L Chloride 100 (98-107) mEq/L Carbon Dioxide 27 (23-29) mEq/L BUN 8 (8-23) mg/dL Creatinine 0.43 L (0.70-1.30) mg/dL Est GFR ( Amer) > 60 (> 60) Est GFR (Non-Af Amer) > 60 (> 60) BUN/Creatinine Ratio 19 (6-26) Glucose 141 H (70-105) mg/dL POC Glucose 416 H* 150 H (70-99) mg/dL Calculated Osmolality 275 L (280-300) Calcium 8.0 L (8.6-10.3) mg/dL Phosphorus 1.4 L (2.7-4.5) mg/dL Magnesium 2.0 (1.6-2.6) mg/dL Total Bilirubin 9.8 H (0.3-1.0) mg/dL AST 189 H (13-39) Units/L ALT 296 H (7-52) Units/L Alkaline Phosphatase 558 H (34-104) Units/L Serum Total Protein 5.3 L (6.4-8.9) g/dL Albumin 2.8 L (3.5-5.7) g/dL Globulin 2.5 (2.4-3.5) g/dL Albumin/Globulin Ratio 1.1 (1.1-2.2) 11/28/17 11/27/17 Range/Units 04:07 23:54 WBC 9.3 (4.3-11.1) K/mcL RBC 4.27 (4.19-5.50) M/mcL Hgb 12.8 L (12.9-16.9) g/dL Hct 37.3 L (37.5-50.1) % MCV 87.4 (83.0-100.0) fL MCH 30.0 (28.0-33.3) pg MCHC 34.3 (31.6-35.5) g/dL RDW 14.4 (11.5-14.5) % Plt Count 172 (140-400) K/mcL MPV 12.4 (9.4-12.4) fL Immature Gran % 0.4 (0-4) % Seg Neutrophils % 91.7 % Lymphocytes % 5.0 % Monocytes % 1.5 % Eosinophils % 1.3 % Basophils % 0.1 % Neutrophils # 8.6 (1.6-8.9) K/mcL Lymphocytes # 0.5 L (0.6-4.6) K/mcL Monocytes # 0.1 (0.0-1.3) K/mcL Eosinophils # 0.1 (0.0-0.6) K/mcL Basophils # 0.0 (0.0-0.2) K/mcL Sodium (136-145) mEq/L Potassium (3.5-5.1) mEq/L Chloride (98-107) mEq/L Carbon Dioxide (23-29) mEq/L BUN (8-23) mg/dL Creatinine (0.70-1.30) mg/dL Est GFR ( Amer) (> 60) Est GFR (Non-Af Amer) (> 60) BUN/Creatinine Ratio (6-26) Glucose (70-105) mg/dL POC Glucose 163 H (70-99) mg/dL Calculated Osmolality (280-300) Calcium (8.6-10.3) mg/dL Phosphorus (2.7-4.5) mg/dL Magnesium (1.6-2.6) mg/dL Total Bilirubin (0.3-1.0) mg/dL AST (13-39) Units/L ALT (7-52) Units/L Alkaline Phosphatase (34-104) Units/L Serum Total Protein (6.4-8.9) g/dL Albumin (3.5-5.7) g/dL Globulin (2.4-3.5) g/dL Albumin/Globulin Ratio (1.1-2.2) Consult Discharge Plan - Plan Instructions: Sepsis (DC) Additional Instructions: F/up with GI in 4-5 weeks F/up with Oncology as scheduled; Referrals: Zachary Schulte MD [Partnered Physician] - Sona Quezada CNP [Primary Care Provider] - 12/11/17 8:15 am Ranjan Chow MD [Partnered Physician] - Prescriptions: Amoxicillin/Clavulanate [Augmentin] 875 mg PO BIDWM #20 tablet OxyCODONE Oral Soln [OxyCODONE ORAL SOLN] 10 mg SL Q6H PRN 10 Days #300 mls PRN Reason: Severe Pain - Attending Attestation Patient is 59-year-old gentleman who was recently diagnosed with pancreatic cancer and also obstructive jaundice requiring a stent placement not long ago presented with sepsis like picture and jaundice with the bilirubin up to 10. Workup revealed that the patient had another obstructive jaundice underwent an ERCP with stent appeared clogged with sludge. Stent was removed in 2 weeks. Her stents were placed. Patient was also found to be bacteremic with Klebsiella pneumonia that was pansensitive with exception of ampicillin. Patient was started on broad-spectrum antibiotics and we were asked to evaluate the patients make further recommendations. Since the patients stent placement, his symptoms improved his jaundice significantly improves his bilirubin is improved and he states he feels much better. Repeat cultures on November 30 are still no growth to date.. At this point with all the information that we have and the improvement of sepsis picture patient does appear to be changed to oral antibiotics. Patient has no antibiotics allergy so I recommend Augmentin 875 by mouth twice a day to finish 10 more days through December 12. We will notify the primary team.
[2017-12-02 15:55] VITALS: BP 115/78
--- NOTE | 2017-12-02 17:42 | Discharge Summary ---
- NOTES TO OUTPATIENT PROVIDER Notes to Outpatient Provider: Obstructive jaundice, sepsis s/p biliary stents; f /up with Oncology and GI; Orders not resulted at time of discharge: Pending orders 11/29/17 07:58 Culture,Blood [BC] Routine 12/03/17 04:00 CBC [Complete Blood Count] [HEME] AM 0400 CMP [Comprehensive Metabolic Panel] AM 0400 Magnesium AM 0400 Phosphorous AM 0400 Date of Encounter: 12/02/17 Time of Encounter: 10:00 - Discharge Diagnosis (1) Sepsis Priority: Primary Status: Acute Qualifiers: Sepsis type: sepsis due to unspecified organism Qualified Code(s): A41.9 - Sepsis, unspecified organism (2) Diabetes mellitus Priority: Secondary Status: Chronic Qualifiers: Diabetes mellitus type: type 2 Diabetes mellitus long-term insulin use: without long-term use Diabetes mellitus complication status: with unspecified complications Qualified Code(s): E11.8 - Type 2 diabetes mellitus with unspecified complications (3) Hypertension Priority: Secondary Status: Chronic Qualifiers: Hypertension type: essential hypertension Qualified Code(s): I10 - Essential (primary) hypertension (4) Chronic pain Priority: Secondary Status: Chronic Qualifiers: Chronic pain type: other chronic pain Qualified Code(s): G89.29 - Other chronic pain (5) Pancreatic cancer Priority: Secondary Status: Chronic Qualifiers: Pancreatic malignancy location: unspecified Qualified Code(s): C25.9 - Malignant neoplasm of pancreas, unspecified (6) Obstructive jaundice due to cancer Priority: Primary Status: Acute (7) Severe protein-energy malnutrition Priority: Secondary Status: Chronic Hospital course: Mr. Chauhan is a 62 year old male with history of pancreatic adenocarcinoma with liver metastases, who was admitted with progressively worsening abdominal pain and jaundice. At this time, he is noted to have progression of cancer with increased size of pancreatic mass, worsening of liver metastases, increase of adenopathy, left lower lobe lung nodule was also noted concerning for metastatic disease, complete encasement of the SMA with worsening encasement of the SMV is also noted. Oncology was consulted, followed the patient while he was in the hospital, recommended outpatient follow-up to discuss further plan of care. He is currently on chemotherapy with Gemcitabine and Abraxane. Patient was noted to have obstructive jaundice with total bilirubin close to 10. He recently received metallic biliary stent at [facility]. GI was consulted during this admission, patient underwent endoscopy that showed blocked metallic stent, he received 2 plastic stents with improvement in jaundice, total bilirubin to around 3. Case discussed with gastroenterology today, patient is stable for discharge with outpatient GI follow-up. He was started on empiric IV antibiotics for possible biliary infection at admission. One out of 2 blood cultures from 11/27/2017 through pansensitive Klebsiella pneumoniae. ID was consulted, antibiotics were initially changed to IV ertapenem, currently he is stable for discharge on oral Augmentin. Discussed with ID. Palliative care has been on board, followed the patient along for goals of care discussion, CODE STATUS determination and pain control. He chose to be DNR comfort care arrest/DNI. Discharge discussed with: patient, family, nurse, personnel consultant - Time Spent with Patient Total time spent providing and/or coordinating discharge services: Greater than 30 minutes (45 min) - Discharge Medications Prescriptions: Amoxicillin/Clavulanate [Augmentin] 875 mg PO BIDWM #20 tablet OxyCODONE Oral Soln [OxyCODONE ORAL SOLN] 10 mg SL Q6H PRN 10 Days #300 mls PRN Reason: Severe Pain Home Medications: Famotidine [Heartburn Prevention] 20 mg PO BID 06/21/17 [History] Linagliptin [Tradjenta] 5 mg PO DAILY 06/21/17 [History] Metformin HCl [Glucophage] 1,000 mg PO BID 06/21/17 [History] Simvastatin [Zocor] 20 mg PO HS 06/21/17 [History] Alogliptin Benzoate [Alogliptin] 25 mg PO DAILY 11/06/17 [History] HYDROcodone/Acet 10/325 mg [[place] 10-325 mg] 1 tab PO Q6H PRN 11/07/17 [History] Ondansetron [Zofran] 8 mg PO Q8HR PRN #60 tablet 11/14/17 [Rx] Prochlorperazine Maleate [Compazine] 10 mg PO Q6HR PRN #90 tablet 11/14/17 [Rx] Lidocaine/Prilocaine [Emla] 1 appl TP AD #30 gm 11/25/17 [Rx] Amlodipine Besylate 10 mg PO DAILY 11/27/17 [History] Glimepiride [Amaryl] 4 mg PO Q12H 11/27/17 [History] Amoxicillin/Clavulanate [Augmentin] 875 mg PO BIDWM #20 tablet 12/02/17 [Rx] OxyCODONE Oral Soln [OxyCODONE ORAL SOLN] 10 mg SL Q6H PRN 10 Days #300 mls 07/16 [Rx] Allergies/Adverse Reactions: 3 Allergy/AdvReac Type Severity Reaction Status Date / Time No Known Allergies Allergy Verified 11/27/17 10:17 Date of admission: 11/26/17 21:45 Primary care physician: Sona Quezada CNP Consults: 11/27/17 16:02 Consult to Oncology [CONS] Routine Consulting Provider: Oncology [facility] Reason for Consult: Pancreatic cancer Call Completed: Yes 11/27/17 16:03 Consult to Gastroenterology [CONS] Routine Consulting Provider: Gastroenterology Calvin Reason for Consult: Pancreatic cancer with recent ERCP, need new ERCP this admission? Call Completed: No Consult to Palliative Care [CONS] Routine Comment: Consulting Provider: Palliative Care Radha Reason for Consult: Goals of care related to pancreatic CA. Call Completed: Yes 11/29/17 10:37 Consult to Infectious Diseases [CONS] Routine Consulting Provider: Infectious Disease Radha Reason for Consult: enterebocater and klebsiella sepsis with gram positive rods Call Completed: No Discharging clinician: Anna Smith Anticipated date of discharge: 12/02/17 - Constitutional Vitals: Temp Pulse Resp BP Pulse Ox 97.8 F 58 16 115/78 96 12/02/17 15:51 12/02/17 15:51 12/02/17 15:51 12/02/17 15:51 12/02/17 15:51 General appearance: Present: A&O X 3, answers questions appropriately Exam: . - Cardiovascular Cardiovascular exam: Present: RRR, +S1, +S2. Absent: diastolic murmur, gallop, rubs, systolic murmur - Patient Status Disposition: Home, Self-Care Condition: Fair Functional capacity at discharge: independent ambulation Overall status at discharge: patient is progressing back to baseline - Discharge Instructions Instructions: Sepsis (DC) Follow Up With: Zachary Schulte MD [Partnered Physician] - Sona Quezada CNP [Primary Care Provider] - 12/11/17 8:15 am Ranjan Chow MD [Partnered Physician] - Additional Instructions: F/up with GI in 4-5 weeks F/up with Oncology as scheduled; - Diet and Activity Activity: increase activity as tolerated Diet: diabetic diet, low fat, low cholesterol, low salt diet
== END 2017-12-02 19:03 | disposition home or self-care (01) | DRG 871 ==
LOC: SUATTDRO 21:45 → 2NENU 21:45
PROVIDERS: ADMIT Internal Medicine; ATTEND Internal Medicine

== ENCOUNTER 2018-01-27 17:15 | Observation (INO) ==
[2018-01-27] MEDS ORDERED: *HR* Heparin 5,000 UNIT/ML VIAL IVP PRN ×4 (18:00→19:15)
[2018-01-27] MEDS ORDERED: Heparin 25,000 UNIT/500 ML D5W 25,000 UNIT/500 ML BAG IVC SCH ×2 (18:00→19:15)
[2018-01-27] MEDS ORDERED: *HR* Heparin 5,000 UNIT/ML VIAL IVP ONE ×2 (18:00→19:15)
--- NOTE | 2018-01-27 18:17 | Emergency Department Note ---
Disposition Clinical Impression: Normocytic anemia Pulmonary embolism Qualifiers: Pulmonary embolism type: other Chronicity: acute Acute cor pulmonale presence: without acute cor pulmonale Qualified Code(s): I26.99 - Other pulmonary embolism without acute cor pulmonale Disposition: Admitted As Inpatient Condition: Good Time of Disposition: 19:36 General Adult HPI - General Chief complaint: ED Shortness of Breath/Dyspnea Stated complaint: PE,Confirmed CA Pt Time Seen by Provider: 01/27/18 17:48 Source: patient Limitations: no limitations Nursing Notes Reviewed: Yes Vital Signs Reviewed: Yes - History of Present Illness HPI Narrative: 62 year old male presents for pulmonary embolus. Patient has pancreatic cancer with metastasis to lung and liver. Follows with oncologist Dr. Xie. Patient got a CT today at 14:00 to see if mass shrank. A pulmonary embolus was found and patient was sent to ED. Admits chronic cough. Patient denies any chest pain, shortness of breath, increased cough, hemoptysis, unilateral swelling. Patient denies feeling any different than usual. Admits recent surgery for liver stents. Reports medical history of pancreatic cancer, diabetes, HTN, HLD. Denies any blood thinner. Current smoker. Pain Scale: 6 - Related Data Home Medications Medication Instructions Recorded Confirmed Famotidine [Heartburn Prevention] 20 mg PO BID 06/21/17 01/27/18 Linagliptin [Tradjenta] 5 mg PO DAILY 06/21/17 01/27/18 Metformin HCl [Glucophage] 1,000 mg PO DAILY 06/21/17 01/27/18 Simvastatin [Zocor] 20 mg PO HS 06/21/17 01/27/18 Alogliptin Benzoate [Alogliptin] 25 mg PO DAILY 11/06/17 01/27/18 HYDROcodone/Acet 10/325 mg [[place] 1 tab PO Q6H PRN 11/07/17 01/27/18 10-325 mg] Amlodipine Besylate 10 mg PO DAILY 11/27/17 01/27/18 Glimepiride [Amaryl] 4 mg PO Q12H 11/27/17 01/27/18 Previous Rx's Medication Instructions Recorded Ondansetron [Zofran] 8 mg PO Q8HR PRN #60 tablet 11/14/17 Prochlorperazine Maleate 10 mg PO Q6HR PRN #90 tablet 11/14/17 [Compazine] Lidocaine/Prilocaine [Emla] 1 appl TP AD #30 gm 11/25/17 Potassium Chloride [K-Tab ER] 40 meq PO DAILY #6 tablet.er 12/23/17 OxyCODONE Immed Rel [Roxicodone 10 10 mg PO Q6H PRN 30 Days #120 tab 01/06/18 MG] Allergies Allergy/AdvReac Type Severity Reaction Status Date / Time No Known Allergies Allergy Verified 01/20/18 13:08 Constitutional: Denies: fever, chills Eyes: Denies: eye pain, eye discharge ENT ED: Denies: ear pain, throat pain Cardiovascular: Denies: chest pain, palpitations Respiratory: Reports: cough. Denies: dyspnea Gastrointestinal: Denies: abdominal pain, nausea Genitourinary: Denies: urgency, dysuria Musculoskeletal: Denies: back pain, neck pain Integumentary: Denies: rash, abrasion Neurological: Denies: headache, weakness Past Medical History - Past Medical History Medical history: Reports: cancer, diabetes, hyperlipidemia, hypertension Surgical history: Reports: other Psychiatric history: Reports: no psych history - Social History Smoking Status: Current every day smoker Smokeless Tobacco Status: No Alcohol use: Reports: none Drug use: Reports: none Physical Exam - General Limitations: no limitations General appearance: alert, in no apparent distress - Head Head exam: atraumatic, normocephalic - Eye Eye exam: Present: PERRL, EOMI - ENT ENT exam: normal oropharynx, mucous membranes moist - Neck Neck exam: Present: normal inspection - Chest Chest inspection: Present: normal inspection, symmetric chest wall rise. Absent: tenderness - Respiratory Respiratory exam: Present: normal lung sounds bilaterally. Absent: respiratory distress - Cardiovascular Cardiovascular exam: Present: regular rate, normal rhythm - Abdominal Exam Abdominal exam: Present: soft, Non-Tender, normal bowel sounds. Absent: distention, guarding, rebound, rigidity - Extremities Exam Extremities exam: Present: pedal edema (1+ pitting edema bilaterally. ). Absent: tenderness, joint swelling - Neurological Exam Neurological exam: Present: alert, oriented X3 - Skin Skin exam: Present: warm, dry, intact, normal color Course Course Narrative: 62 year old male with history of metastatic pancreatic cancer presents for confirmed pulmonary embolus on CT. Patient is asymptomatic. Patient is alert and oriented. Vitals are all stable and WNL. On exam, heart and lungs are normal. Re view of medical records reveals acute PE in RLL on CT chest. Will check labwork and start heparin protocol. Will admit. - Reevaluation(s) Reevaluation #1: CBC shows normocytic anemia at 11.6, was 13.3 seven days ago. Coag study is unremarkable. Patient denies hematochezia, melena, hematemesis, hemoptysis. Will check BMP. Time: 19:12 Vital Signs Temperature 97.4 F L 01/27/18 17:19 Pulse Rate 62 01/27/18 17:19 Respiratory Rate 16 01/27/18 17:19 Blood Pressure 126/78 01/27/18 17:19 O2 Sat by Pulse Oximetry 98 01/27/18 17:19 Temperature 97.4 F L 01/27/18 17:23 Pulse Rate 62 01/27/18 17:23 Respiratory Rate 16 01/27/18 17:23 Blood Pressure 126/78 01/27/18 17:23 O2 Sat by Pulse Oximetry 98 01/27/18 17:23 Oxygen Delivery Oxygen Delivery Room Air Medical Decision Making - Medical Records Medical records reviewed: Yes I reviewed the patient's medical records. - Lab Data Lab results reviewed: Yes I reviewed the patient's lab results. Result diagrams: 01/27/18 18:00 01/27/18 18:20 Lab Results 01/27/18 01/27/18 01/27/18 Range/Units 18:00 18:00 18:20 WBC 4.6 (4.3-11.1) K/mcL RBC 3.91 L (4.19-5.50) M/mcL Hgb 11.6 L (12.9-16.9) g/dL Hct 35.5 L (37.5-50.1) % MCV 90.8 (83.0-100.0) fL MCH 29.7 (28.0-33.3) pg MCHC 32.7 (31.6-35.5) g/dL RDW 14.8 H (11.5-14.5) % Plt Count 157 (140-400) K/mcL MPV 10.9 (9.4-12.4) fL Immature Gran % 0.4 (0-4) % Seg Neutrophils % 51.8 % Lymphocytes % 29.7 % Monocytes % 13.7 % Eosinophils % 3.7 % Basophils % 0.7 % Neutrophils # 2.4 (1.6-8.9) K/mcL Lymphocytes # 1.4 (0.6-4.6) K/mcL Monocytes # 0.6 (0.0-1.3) K/mcL Eosinophils # 0.2 (0.0-0.6) K/mcL Basophils # 0.0 (0.0-0.2) K/mcL PT 13.2 H (9.4-12.1) Seconds INR 1.2 APTT 34.7 (26.0-36.0) Seconds Sodium 134 L (136-145) mEq/L Potassium 3.7 (3.5-5.1) mEq/L Chloride 100 (98-107) mEq/L Carbon Dioxide 30 H (23-29) mEq/L BUN 7 L (8-23) mg/dL Creatinine 0.58 L (0.70-1.30) mg/dL Est GFR ( Amer) > 60 (> 60) Est GFR (Non-Af Amer) > 60 (> 60) BUN/Creatinine Ratio 12 (6-26) Glucose 227 H (70-105) mg/dL Calculated Osmolality 283 (280-300) Calcium 8.7 (8.6-10.3) mg/dL Total Bilirubin 0.5 (0.3-1.0) mg/dL AST 33 (13-39) Units/L ALT 45 (7-52) Units/L Alkaline Phosphatase 177 H (34-104) Units/L Serum Total Protein 5.8 L (6.4-8.9) g/dL Albumin 3.2 L (3.5-5.7) g/dL Globulin 2.6 (2.4-3.5) g/dL Albumin/Globulin Ratio 1.2 (1.1-2.2) - Radiology Data Radiology results reviewed: Yes I reviewed the patient's radiology results. Attestation Statement - Attestation Attestation: I examined this patient and my medical decision-making was reviewed with the Resident Physician, Dr. Kuhn. I agree with the documented findings, disposition and treatment plan as described except to the extent set forth below. Patient is 62-year-old white male with metastatic pancreatic cancer to the liver and lungs who presents to the emergency department sent here for an abnormal CT scan as an outpatient earlier today. Patient was having outpatient CT scan of the chest for all up on his serial imaging for his cancer. Patient was told that the [place] area embolus was found on his scan was sent to the emergency department. Patient denies any change in his breathing no chest discomfort no lightheadedness or syncope. I agree with patient's physical exam findings as documented. Vital signs are stable. Patient underwent lab evaluation with normal platelet count, H&H is stable INR within normal limits. Patient is not on any blood thinners at this time. Heparin was initiated in the ED and patient will be admitted to the hospitalist service for further evaluation and management.
[2018-01-27 18:44] LABS: Basophils % 0.7 %; Eosinophils # 0.2 K/mcL (0.0-0.6); Eosinophils % 3.7 %; Hematocrit 35.5 % (37.5-50.1); Hemoglobin 11.6 g/dL (12.9-16.9); Immature Granulocytes % 0.4 % (0-4); Lymphocytes # 1.4 K/mcL (0.6-4.6); Lymphocytes % 29.7 %; Mean Corpuscular HGB Conc 32.7 g/dL (31.6-35.5); Mean Corpuscular Hemoglobin 29.7 pg (28.0-33.3); Mean Corpuscular Volume 90.8 fL (83.0-100.0); Mean Platelet Volume 10.9 fL (9.4-12.4); Monocytes # 0.6 K/mcL (0.0-1.3); Monocytes % 13.7 %; Neutrophils # 2.4 K/mcL (1.6-8.9); Platelet Count 157 K/mcL (140-400); Red Blood Count 3.91 M/mcL (4.19-5.50); Red Cell Distribution Width 14.8 % (11.5-14.5); Segmented Neutrophils % 51.8 %
[2018-01-27 18:51] LABS: INR 1.2; Prothrombin Time 13.2 Seconds (9.4-12.1)
[2018-01-27 18:53] LABS: Activated Partial Thrombo Time 34.7 Seconds (26.0-36.0)
[2018-01-27 19:35] LABS: Alanine Aminotransferase 45 Units/L (7-52); Albumin 3.2 g/dL (3.5-5.7); Albumin/Globulin Ratio 1.2 (1.1-2.2); Alkaline Phosphatase 177 Units/L (34-104); Aspartate Amino Transferase 33 Units/L (13-39); BUN/Creatinine Ratio 12 (6-26); Bilirubin,Total 0.5 mg/dL (0.3-1.0); Blood Urea Nitrogen 7 mg/dL (8-23); Calcium 8.7 mg/dL (8.6-10.3); Carbon Dioxide 30 mEq/L (23-29); Chloride 100 mEq/L (98-107); Globulin 2.6 g/dL (2.4-3.5); Glucose 227 mg/dL (70-105); Osmolality,Calculated 283 (280-300); Potassium 3.7 mEq/L (3.5-5.1); Sodium 134 mEq/L (136-145); Total Protein 5.8 g/dL (6.4-8.9); eGFR For Non-African Americans > 60 (> 60)
--- NOTE | 2018-01-27 20:14 | Internal Med History&Physical ---
<Sharri Stephenson N - Last Filed: 01/28/18 06:14> Date of Encounter: 01/27/18 Time of Encounter: 20:14 Internal Medicine - H&P: HPI Chief complaint: PE Admitted From: Emergency Dept History of present illness: Mr. Chauhan is a 62 year old male with a history of hypertension, hyperlipidemia, diabetes, chronic back pain, and pancreatic cancer with metastasis to liver and the lungs. He is currently undergoing palliative chemotherapy. He underwent CT of the chest and abdomen today per his oncologist to evaluate success of therapy. Those imaging studies revealed an acute pulmonary embolism in the right lower lobar pulmonary artery. Patient denied any symptoms; however, he was advised to present to the ED for further evaluation and management. Upon arrival to the ED, patient was initiated on heparin gtt and admitted to the hospitalist service for further management of his pulmonary embolism. Laboratory studies in the ED revealed a decreased hemoglobin of 11.6. Review of prior laboratory studies showed a hemoglobin of 13.3 on 01/20/2018. The patient denied any recent bleeding episodes. He did report a recent stool that was darker in color; however, there was no momo blood present. Stool hemoccult was obtained, which was positive. Patient denies any chest pain, shortness of breath, worsening abdominal pain, changes in stool, or acute illness. He does report noticing bilateral lower extremity edema that has developed over the last day. He reports chronic epigastric pain associated with his pancreatic cancer; however, he denies any worsening or change in his discomfort. Patient was seen and evaluated at the bedside, at which time he denied any new complaints or concerns. Past Med Surg Social Fam HX - Past Medical History Medical history: cancer, diabetes, hyperlipidemia, hypertension Additional medical history: chronic back pain, liver/pancreatic/lung CA Psychiatric history: no psych history - Past Surgical History Surgical History: other Additional surgical history: R knee repair, spinal stimulator - Social History Smoking Status: Current every day smoker Smokeless Tobacco Status: No Alcohol use: none Drug use: none - Family History Mother Adopted: No Twin of Family Member: Yes, Fraternal Living Status: Hx Family Cardiac Disorders: No Hx Family Respiratory Disorders: No Hx Family GI Disorders: No Hx Family Endocrine Disorder: Yes Hx Family Neuromuscular Disorders: No Hx Family Neurologic Disorders: No Hx Family HEENT Disorders: No Hx Family Autoimmune Disorders: No Paternal Grandmother Living Status: Hx Family Cardiac Disorders: Yes Hx Family Respiratory Disorders: No Hx Family Cancer: No Hx Family GI Disorders: No Hx Family Endocrine Disorder: Yes Hx Family Neuromuscular Disorders: No Hx Family Neurologic Disorders: No Hx Family HEENT Disorders: No Hx Family Autoimmune Disorders: No Maternal Grandmother Living Status: Hx Family Cardiac Disorders: Yes Hx Family Endocrine Disorder: Yes Maternal Grandfather Living Status: Hx Family Cardiac Disorders: Yes Hx Family Cancer: Yes (Prostate Cancer) Brother Living Status: Hx Family Respiratory Disorders: Yes (COPD) Hx Family Cancer: Yes (Lung) Sister Living Status: Hx Family Respiratory Disorders: Yes (COPD) Hx Family Cancer: Yes (Lung Cancer) Hx Family Endocrine Disorder: Yes (Diabetes) Internal Medicine - H&P: Meds Famotidine [Heartburn Prevention] 20 mg PO BID 06/21/17 [History] Linagliptin [Tradjenta] 5 mg PO DAILY 06/21/17 [History] Metformin HCl [Glucophage] 1,000 mg PO DAILY 06/21/17 [History] Simvastatin [Zocor] 20 mg PO HS 06/21/17 [History] Alogliptin Benzoate [Alogliptin] 25 mg PO DAILY 11/06/17 [History] HYDROcodone/Acet 10/325 mg [[place] 10-325 mg] 1 tab PO Q6H PRN 11/07/17 [History] Ondansetron [Zofran] 8 mg PO Q8HR PRN #60 tablet 11/14/17 [Rx] Prochlorperazine Maleate [Compazine] 10 mg PO Q6HR PRN #90 tablet 11/14/17 [Rx] Lidocaine/Prilocaine [Emla] 1 appl TP AD #30 gm 11/25/17 [Rx] Amlodipine Besylate 10 mg PO DAILY 11/27/17 [History] Glimepiride [Amaryl] 4 mg PO Q12H 11/27/17 [History] Potassium Chloride [K-Tab ER] 40 meq PO DAILY #6 tablet.er 12/23/17 [Rx] OxyCODONE Immed Rel [Roxicodone 10 MG] 10 mg PO Q6H PRN 30 Days #120 tab 01/06/18 [Rx] Allergy/AdvReac Type Severity Reaction Status Date / Time No Known Allergies Allergy Verified 01/20/18 13:08 All Systems PM: A 10-system review of systems was performed and is negative for pertinent findings except as documented above in the HPI. - Constitutional Vitals: Temp Pulse Resp BP Pulse Ox 97.4 F L 62 16 126/78 98 01/27/18 17:23 01/27/18 17:23 01/27/18 17:23 01/27/18 17:23 01/27/18 17:23 Exam: GENERAL: Well-developed and well-nourished adult male in no acute distress. HEENT: Atraumatic and normocephalic. Oral mucosa is moist. NECK: Soft and nontender. No thyromegaly or lymphadenopathy noted. CARDIOVASCULAR: Regular rate and rhythm. S1 and S2 present. No murmurs, gallops, or rubs appreciated. RESPIRATORY: CTA bilaterally. Chest rises and falls symmetrically with respiration. No sensory muscle use noted. GASTROINTESTINAL: Active bowel sounds present 4 quadrants. Abdomen is soft and nondistended. Patient is tender to palpation in the epigastric region, with mild tenderness in the left lower quadrant. EXTREMITIES: Bilateral lower extremities demonstrate 1+ pitting edema with erythema and warmth present. SKIN: Warm and dry. NEUROLOGIC: A&O 3. Patient is cooperative with exam and answers questions appropriately. No apparent focal deficits. Internal Med - H&P Results - Labs CBC & Chem 7: 01/28/18 01:15 01/28/18 05:30 Labs: Short CBC 01/27/18 Range/Units 18:00 WBC 4.6 (4.3-11.1) K/mcL Hgb 11.6 L (12.9-16.9) g/dL Hct 35.5 L (37.5-50.1) % Plt Count 157 (140-400) K/mcL Neutrophils # 2.4 (1.6-8.9) K/mcL BMP 01/27/18 18:20 Sodium 134 L Potassium 3.7 Chloride 100 Carbon Dioxide 30 H BUN 7 L Creatinine 0.58 L Glucose 227 H Calcium 8.7 Liver Function 01/27/18 Range/Units 18:20 Total Bilirubin 0.5 (0.3-1.0) mg/dL AST 33 (13-39) Units/L ALT 45 (7-52) Units/L Alkaline Phosphatase 177 H (34-104) Units/L Albumin 3.2 L (3.5-5.7) g/dL - Assessment and plan (1) Pulmonary embolism Current Visit: Yes Status: Acute Assessment and plan: Acute pulmonary embolism present in the right lower lobar pulmonary artery. P atient remains asymptomatic, with oxygen saturation >95%. Patient reports new- onset edema of bilateral lower extremities, which are warm and erythematous on exam. - Heparin gtt initiated in ED stopped secondary to positive stool guiac - Continuous pulse oximetry - Bilateral LE dopper US due to concern for presence of DVT - Vascular surgery consult for possible IVC filter placement due to high risk for recurrent/worsening PE Qualifiers: Pulmonary embolism type: other Chronicity: acute Acute cor pulmonale presence: without acute cor pulmonale Qualified Code(s): I26.99 - Other pulmonary embolism without acute cor pulmonale (2) Pancreatic cancer Current Visit: No Status: Chronic Assessment and plan: - Continue roxycodone 10mg Q6H PRN - Oncology consult for input assistance with management in light of concurrent PE and GI bleed Qualifiers: Pancreatic malignancy location: unspecified Qualified Code(s): C25.9 - Malignant neoplasm of pancreas, unspecified (3) Chronic back pain Current Visit: Yes Status: Acute Assessment and plan: - Continue home dose of norco 10-325mg Q6H PRN Qualifiers: Back pain location: back pain in unspecified location Qualified Code(s): M54.9 - Dorsalgia, unspecified; G89.29 - Other chronic pain (4) Diabetes mellitus Current Visit: No Status: Chronic Assessment and plan: Patient is currently NPO in anticipation of possible GI procedure. 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: without assisted use Diabetes mellitus complication status: with unspecified complications Qualified Code(s): E11.8 - Type 2 diabetes mellitus with unspecified complications (5) Hypertension Current Visit: No Status: Chronic Assessment and plan: - Continue home dose of amlodipine Qualifiers: Hypertension type: essential hypertension Qualified Code(s): I10 - Essential (primary) hypertension (6) Tobacco use Current Visit: No Status: Acute Assessment and plan: - Nicotine patch 21mg TD QD - Encouraged smoking cessation (7) DVT prophylaxis Current Visit: No Status: Acute Assessment and plan: - Held secondary to acute GI bleed and concern for possible DVT (8) GI bleed Current Visit: Yes Status: Acute Assessment and plan: Hemoglobin on initial ED studies was found to be 11.6; however, CBC drawn on showed hemoglobin of 13.3. Additionally, his anemia is normocytic, which is concerning for acute bleed. Suspect upper GI bleed. - Protonix bolus administered and gtt initiated - Type and screen performed - Serial H&H Q6H - Consult gastroenterology for possible endoscopy - NPO diet in anticipation of possible GI procedure Qualifiers: GI bleed type/associated pathology: unspecified gastrointestinal hemorrhage type Qualified Code(s): K92.2 - Gastrointestinal hemorrhage, unspecified - Time Spent With Patient Total time spent is greater than 50% in coordination of care (as documented) at patient's floor/unit and/or counseling patient: <Jared Pappas - Last Filed: 01/28/18 07:30> Date of Encounter: 01/28/18 Time of Encounter: 05:30 - Constitutional Constitutional: no chills, no fever(s) - EENT Eyes: no change in vision Ears: no ear pain, no tinnitus Nose, mouth and throat: no nasal congestion, no nasal discharge, no sore throat - Cardiovascular Cardiovascular ROS IM: no chest pain, no dyspnea, no dyspnea on exertion - Respiratory Respiratory: no cough, no hemoptysis, no chest congestion, no excessive phlegm production, no change in phlegm color - Gastrointestinal Gastrointestinal: melena, no abdominal pain, no coffee ground emesis, no diarrhea, no hematemesis, no hematochezia, no vomiting - Genitourinary Genitourinary ROS male: no dysuria, no flank pain, no hematuria - Musculoskeletal Musculoskeletal ROS IM: no arthralgias, no back pain - Integumentary Integumentary IM: no rash, no jaundice - Neurological Neurological ROS: no dizziness, no focal weakness, no frequent falls, no headache(s) - Psychiatric Psychiatric: no anxiety, no depression - Endocrine Endocrine IM: no polydipsia, no polyuria - Constitutional Vitals: Temp Pulse Resp BP Pulse Ox 98.2 F 53 18 112/68 96 01/28/18 07:00 01/28/18 07:00 01/28/18 07:00 01/28/18 07:00 01/28/18 07:00 General appearance: Present: cooperative, A&O X 3, pleasant, no acute distress, answers questions appropriately - Head Head exam: Present: normal inspection - Eye Eye exam: Present: EOMI, PERRL. Absent: scleral icterus Pupils: Present: normal accommodation - ENT ENT exam: Present: mucous membranes dry, normal exam - Neck Neck exam general surgery: Present: supple. Absent: tenderness, nuchal rigidity, thyromegaly - Respiratory Respiratory exam: Present: CTAB. Absent: chest wall tenderness, rales, respiratory distress, rhonchi, wheezes - Cardiovascular Cardiovascular exam: Present: RRR, +S1, +S2. Absent: diastolic murmur, systolic murmur - GI/Abdominal GI/Abdominal exam: Present: soft. Absent: guarding, hepatomegaly, rebound, splenomegaly, tenderness - Extremities Exam Extremities exam: Present: full ROM, warm, radial pulses palpable and symmetrical. Absent: calf tenderness - Back Exam Back exam: Absent: CVA tenderness (L), CVA tenderness (R) - Skin Skin exam: Present: dry, intact, warm Internal Med - H&P Results - Labs CBC & Chem 7: 01/28/18 01:15 01/28/18 05:30 Labs: Short CBC 01/27/18 01/28/18 Range/Units 18:00 01:15 WBC 4.6 4.9 (4.3-11.1) K/mcL Hgb 11.6 L 11.6 L (12.9-16.9) g/dL Hct 35.5 L 34.8 L (37.5-50.1) % Plt Count 157 148 (140-400) K/mcL Neutrophils # 2.4 2.4 (1.6-8.9) K/mcL BMP 01/27/18 01/28/18 18:20 05:30 Sodium 134 L 138 Potassium 3.7 3.9 Chloride 100 105 Carbon Dioxide 30 H 29 BUN 7 L 9 Creatinine 0.58 L 0.54 L Glucose 227 H 141 H Calcium 8.7 9.2 Liver Function 01/27/18 Range/Units 18:20 Total Bilirubin 0.5 (0.3-1.0) mg/dL AST 33 (13-39) Units/L ALT 45 (7-52) Units/L Alkaline Phosphatase 177 H (34-104) Units/L Albumin 3.2 L (3.5-5.7) g/dL - Assessment and plan (1) Diabetes mellitus Current Visit: No Status: Chronic Qualifiers: Diabetes mellitus type: type 2 Diabetes mellitus assisted insulin use: without maintenance worker swimming pool use Diabetes mellitus complication status: with unspecified complications Qualified Code(s): E11.8 - Type 2 diabetes mellitus with unspecified complications (2) Hypertension Current Visit: No Status: Chronic Qualifiers: Hypertension type: essential hypertension Qualified Code(s): I10 - Essential (primary) hypertension (3) DVT prophylaxis Current Visit: No Status: Acute (4) Tobacco use Current Visit: No Status: Acute (5) Pancreatic cancer Current Visit: No Status: Chronic Qualifiers: Pancreatic malignancy location: unspecified Qualified Code(s): C25.9 - Malignant neoplasm of pancreas, unspecified (6) Pulmonary embolism Current Visit: Yes Status: Acute Qualifiers: Pulmonary embolism type: other Chronicity: acute Acute cor pulmonale pr esence: without acute cor pulmonale Qualified Code(s): I26.99 - Other pulmonary embolism without acute cor pulmonale (7) Chronic back pain Current Visit: Yes Status: Acute Qualifiers: Back pain location: back pain in unspecified location Qualified Code(s): M54.9 - Dorsalgia, unspecified; G89.29 - Other chronic pain (8) GI bleed Current Visit: Yes Status: Acute Qualifiers: GI bleed type/associated pathology: unspecified gastrointestinal hemorrhage type Qualified Code(s): K92.2 - Gastrointestinal hemorrhage, unspecified - Time Spent With Patient Total time spent is greater than 50% in coordination of care (as documented) at patient's floor/unit and/or counseling patient: - Attending Attestation I discussed the patient [place], past medical history, review of systems, lab data, and exam findings, and imaging studies with Dr. Stephenson. I then saw and examined patient independently. Patient has no symptoms of PE presently. In particular, he denies any chest pain, shortness of breath, pain with deep inspiration, cough, or hemoptysis. Upon further questioning, he does admit to me that he has had several bouts of melena in the recent weeks. He denies taking any iron supplements or any Pepto-Bismol. He denies any hematochezia, gross hematemesis, or coffee-ground emesis. He denies any particular GI upset with certain foods. Given his acute blood loss anemia, guaiac-positive stool, and need for anticoagulation, he does warrant GI consultation for upper and lower endoscopy. He also needs vascular surgery consultation for consideration of IVC filter in the setting of a PE and who is also high risk for further thromboembolism given his pancreatic cancer. As for now, I agree with stopping the heparin drip until we can further delineate appropriate workup and appropriate treatment from a GI standpoint, vascular surgery standpoint, an oncology standpoint. We will trend his hemoglobins and transfuse as necessary. We have already started him on protonic drip. Other than my comments above and noted exam findings, I agree with Dr. Stephenson's assessment and plan.
[2018-01-28] MEDS ORDERED: Pantoprazole 80 MG in 0.9 % Sodium Chloride 50 ML IVPB ONE (01:01)
[2018-01-28 01:31] LABS: Basophils % 0.4 %; Eosinophils # 0.2 K/mcL (0.0-0.6); Eosinophils % 3.5 %; Hematocrit 34.8 % (37.5-50.1); Hemoglobin 11.6 g/dL (12.9-16.9); Immature Granulocytes % 0.6 % (0-4); Lymphocytes # 1.6 K/mcL (0.6-4.6); Lymphocytes % 32.6 %; Mean Corpuscular HGB Conc 33.3 g/dL (31.6-35.5); Mean Corpuscular Hemoglobin 30.2 pg (28.0-33.3); Mean Corpuscular Volume 90.6 fL (83.0-100.0); Mean Platelet Volume 10.4 fL (9.4-12.4); Monocytes # 0.7 K/mcL (0.0-1.3); Monocytes % 13.3 %; Neutrophils # 2.4 K/mcL (1.6-8.9); Platelet Count 148 K/mcL (140-400); Red Blood Count 3.84 M/mcL (4.19-5.50); Segmented Neutrophils % 49.6 %
[2018-01-28] MEDS: Pantoprazole 40 MG in 0.9 % Sodium Chloride Mini Bag 100 ML IVC SCH ×2 (02:51→07:15)
[2018-01-28] MEDS ORDERED: *HR* HYDROcodone/Acet 10/325 mg TABLET PO PRN (03:17)
[2018-01-28] MEDS ORDERED: Ondansetron ODT 4 MG TAB.RAPDIS PO PRN (03:17)
[2018-01-28] MEDS ORDERED: D5% in Water 1,000 ML IVC PRN (03:32)
[2018-01-28] MEDS ORDERED: *HR* Dextrose 50 % in Water (Syg) 50 ML SYRINGE IVP PRN (03:32)
[2018-01-28] MEDS ORDERED: Dextrose Gel 15 GM/37.5 ML TUBE PO PRN ×2 (03:32)
[2018-01-28] MEDS: Insulin LISPRO 300 UNITS/3 ML VIAL SQ SCH ×3 (05:49→21:23)
[2018-01-28 06:00] LABS: BUN/Creatinine Ratio 17 (6-26); Blood Urea Nitrogen 9 mg/dL (8-23); Calcium 9.2 mg/dL (8.6-10.3); Carbon Dioxide 29 mEq/L (23-29); Chloride 105 mEq/L (98-107); Glucose 141 mg/dL (70-105); Osmolality,Calculated 287 (280-300); Potassium 3.9 mEq/L (3.5-5.1); Sodium 138 mEq/L (136-145); eGFR For Non-African Americans > 60 (> 60)
[2018-01-28 06:11] LABS: INR 1.2; Prothrombin Time 13.6 Seconds (9.4-12.1)
[2018-01-28] MEDS: amLODIPine 5 MG TABLET PO SCH (08:04)
[2018-01-28] MEDS: Nicotine 21 MG PATCH.TD24 TD SCH (08:04)
[2018-01-28] MEDS ORDERED: Famotidine 20 MG TABLET PO SCH (09:00)
--- NOTE | 2018-01-28 10:16 | Anesthesia Evaluation PreOp ---
Date of Encounter: 01/28/18 Time of Encounter: 11:00 - Past History Planned Operation: EGD Cardiac History: HTN, Hyperlipidemia Pulmonary History: Smoker (40 years), COPD, Other (admitted for PE, to have IVC filter placed today) [employer] History: Other (chronic pain S/P SC stimulator implant) Other Medical History: Diabetes Type II, Other (pancreatic CA with liver/lung mets, undergoing chemo) Anesthesia History: No Prior Anesthetic Complications, Past Anesthesia Alcohol Use: none Drug use: none Medications and Allergies Famotidine [Heartburn Prevention] 20 mg PO BID 06/21/17 [History] Linagliptin [Tradjenta] 5 mg PO DAILY 06/21/17 [History] Metformin HCl [Glucophage] 1,000 mg PO DAILY 06/21/17 [History] Simvastatin [Zocor] 20 mg PO HS 06/21/17 [History] Alogliptin Benzoate [Alogliptin] 25 mg PO DAILY 11/06/17 [History] HYDROcodone/Acet 10/325 mg [[place] 10-325 mg] 1 tab PO Q6H PRN 11/07/17 [History] Ondansetron [Zofran] 8 mg PO Q8HR PRN #60 tablet 11/14/17 [Rx] Prochlorperazine Maleate [Compazine] 10 mg PO Q6HR PRN #90 tablet 11/14/17 [Rx] Lidocaine/Prilocaine [Emla] 1 appl TP AD #30 gm 11/25/17 [Rx] Amlodipine Besylate 10 mg PO DAILY 11/27/17 [History] Glimepiride [Amaryl] 4 mg PO Q12H 11/27/17 [History] Potassium Chloride [K-Tab ER] 40 meq PO DAILY #6 tablet.er 12/23/17 [Rx] OxyCODONE Immed Rel [Roxicodone 10 MG] 10 mg PO Q6H PRN 30 Days #120 tab 01/06/18 [Rx] Allergy/AdvReac Type Severity Reaction Status Date / Time No Known Allergies Allergy Verified 01/20/18 13:08 - Meds/Allergy Pre-op Review Medications Reviewed: Yes Allergies Reviewed: Yes Beta Blockers on Current Med List: No Anesthesia Results - Labs 01/28/18 01:15 01/28/18 05:30 Anesthesia Exam Vital Signs/O2 Sat/Glucose, Most Recent Temp Pulse Resp BP Pulse Ox 98.2 F 53 18 112/68 96 01/28/18 07:00 01/28/18 07:00 01/28/18 07:00 01/28/18 07:00 01/28/18 07:00 Blood Glucose* 158 Height: 6'1''/1.85m Weight: 206 lbs/93.7 kg NPO (# of Hours): 8 Pain Scale: 4 (abdomen) Pain Scale Used: Numeric (1 - 10) - HEENT Pupil (Motor): EOMI Mallampati: III Teeth: Edentulous Oral Opening: Greater than 3 - [employer] LOC: Oriented [employer] Motor: Normal RUE, Normal LUE, Normal RLE, Normal LLE, Normal Face [employer] Sensory: Normal: RUE, LUE, RLE, LLE, Face - Cardiac Rhythm: Regular Murmur: None - Pulmonary Breath Sounds: bilateral Clear Respiratory Effort: Symmetrical Anesthesia Assess/Plan ASA Score: 4 Modified Nathaly Scale for Level of Consciousness: Cooperative, oriented, and tranquil Anesthetic Plan: MAC Monitoring Plan: Standard Monitors
[2018-01-28] MEDS: Pantoprazole 40 MG VIAL IVP SCH (13:17)
[2018-01-28] MEDS ORDERED: ISOVUE-250 150 ML INFUS..BTL ONE (13:24)
[2018-01-28] MEDS ORDERED: Heparin 1,000 UNITS/500 mL 500 ML ONE (13:24)
[2018-01-28] MEDS ORDERED: 0.9 % Sodium Chloride 1,000 ML ONE (13:24)
[2018-01-28] MEDS ORDERED: *HR* Heparin 10,000 UNIT/10 ML VIAL ONE (13:24)
--- NOTE | 2018-01-28 13:38 | Event Note ---
Date of Encounter: 01/28/18 Time of Encounter: 13:37 He should not denies any chest pain. No shortness of breath at this time. Denies any swelling or redness in his lower extremities. No new episodes of melena today. Has been nothing by mouth for possible EGD. GI consulted and vascular surgery also consulted. Patient currently not receiving heparin. We will discuss with specialist once the evaluation is completed about starting heparin. Hem- onc will also evaluate patient.
--- NOTE | 2018-01-28 13:52 | Vascular/Endovasc Consult Note ---
Date of Encounter: 01/28/18 Time of Encounter: 09:00 Assessment and Plan (1) Pulmonary embolism Current Visit: Yes Status: Acute The pathophysiology and natural history of venous thromboembolism was discussed with the patient and all questions were answered. The patient was previously anticoagulated however he denies gastrointestinal bleeding. He is slightly hypercoagulable due to his underlying malignancy. Given his increased risk for recurrent deep vein thrombosis and pulmonary embolism and the contraindication to anticoagulation and inferior vena cava filter has been recommended for the patient. The risks, benefits and alternatives were discussed and all questions were answered. The patient expressed understanding and wishes to proceed. Qualifiers: Pulmonary embolism type: other Chronicity: acute Acute cor pulmonale presence: without acute cor pulmonale Qualified Code(s): I26.99 - Other pulmonary embolism without acute cor pulmonale (2) GI bleed Current Visit: Yes Status: Acute Margie neurology was counseled. The patient's been discussed with Dr. Chow. Qualifiers: GI bleed type/associated pathology: unspecified gastrointestinal hemorrhage type Qualified Code(s): K92.2 - Gastrointestinal hemorrhage, unspecified (3) Tobacco use Current Visit: No Status: Acute (4) Diabetes mellitus Current Visit: No Status: Chronic Qualifiers: Diabetes mellitus type: type 2 Diabetes mellitus residential insulin use: without residential use Diabetes mellitus complication status: with unspecified complications Qualified Code(s): E11.8 - Type 2 diabetes mellitus with unspecified complications (5) Hypertension Current Visit: No Status: Chronic Qualifiers: Hypertension type: essential hypertension Qualified Code(s): I10 - Essential (primary) hypertension (6) Pancreatic cancer Current Visit: No Status: Chronic Qualifiers: Pancreatic malignancy location: unspecified Qualified Code(s): C25.9 - Mal ignant neoplasm of pancreas, unspecified - History of Present Illness Consult date: 01/28/18 Requesting physician: Avery Connolly Consult reason: Deep vein thrombosis, pulmonary embolus, gastrointestinal bleeding Chief complaint: Pulmonary embolism History of present illness: Mr. Chauhan is a 62 year old male with history of hyperlipidemia, diabetes, pancreatic cancer, hypertension and deep venous thrombosis. The patient presented to the emergency room with acute shortness of breath was found have an acute pulmonary embolus by CT scan. Started on intravenous heparinization. The patient developed progressive anemia and was noted to have heme positive stool. Denies anemia or anticoagulated vascular surgery was counseled for possible inferior vena cava filter placement. Gastroenterology was also counseled for further evaluation of his gastrointestinal bleeding. At the time of evaluation the patient is comfortable and alert. He denies any chest pain reports tremors of breath on exertion. Past Med Surg Social Fam HX - Past Medical History Medical history: cancer, diabetes, hyperlipidemia, hypertension Additional medical history: chronic back pain, liver/pancreatic/lung CA Psychiatric history: no psych history - Past Surgical History Surgical History: other Additional surgical history: R knee repair, spinal stimulator - Social History Smoking Status: Current every day smoker Smokeless Tobacco Status: No Alcohol use: none Drug use: none - Family History Brother Living Status: Hx Family Respiratory Disorders: Yes (COPD) Hx Family Cancer: Yes (Lung) Maternal Grandfather Living Status: Hx Family Cardiac Disorders: Yes Hx Family Cancer: Yes (Prostate Cancer) Maternal Grandmother Living Status: Hx Family Cardiac Disorders: Yes Hx Family Endocrine Disorder: Yes Mother Adopted: No Twin of Family Member: Yes, Fraternal Living Status: Hx Family Cardiac Disorders: No Hx Family Respiratory Disorders: No Hx Family GI Disorders: No Hx Family Endocrine Disorder: Yes Hx Family Neuromuscular Disorders: No Hx Family Neurologic Disorders: No Hx Family HEENT Disorders: No Hx Family Autoimmune Disorders: No Paternal Grandmother Living Status: Hx Family Cardiac Disorders: Yes Hx Family Respiratory Disorders: No Hx Family Cancer: No Hx Family GI Disorders: No Hx Family Endocrine Disorder: Yes Hx Family Neuromuscular Disorders: No Hx Family Neurologic Disorders: No Hx Family HEENT Disorders: No Hx Family Autoimmune Disorders: No Sister Living Status: Hx Family Respiratory Disorders: Yes (COPD) Hx Family Cancer: Yes (Lung Cancer) Hx Family Endocrine Disorder: Yes (Diabetes) Medications and Allergies RX: Famotidine [Heartburn Prevention] 20 mg PO BID 06/21/17 [History] RX: Linagliptin [Tradjenta] 5 mg PO DAILY 06/21/17 [History] RX: Metformin HCl [Glucophage] 1,000 mg PO DAILY 06/21/17 [History] RX: Simvastatin [Zocor] 20 mg PO HS 06/21/17 [History] RX: Alogliptin Benzoate [Alogliptin] 25 mg PO DAILY 11/06/17 [History] RX: HYDROcodone/Acet 10/325 mg [[place] 10-325 mg] 1 tab PO Q6H PRN 11/07/17 [History] RX: Ondansetron [Zofran] 8 mg PO Q8HR PRN #60 tablet 11/14/17 [Rx] RX: Prochlorperazine Maleate [Compazine] 10 mg PO Q6HR PRN #90 tablet 11/14/17 [Rx] RX: Lidocaine/Prilocaine [Emla] 1 appl TP AD #30 gm 11/25/17 [Rx] RX: Amlodipine Besylate 10 mg PO DAILY 11/27/17 [History] RX: Glimepiride [Amaryl] 4 mg PO Q12H 11/27/17 [History] RX: Potassium Chloride [K-Tab ER] 40 meq PO DAILY #6 tablet.er 12/23/17 [Rx] RX: OxyCODONE Immed Rel [Roxicodone 10 MG] 10 mg PO Q6H PRN 30 Days #120 tab 01/06/18 [Rx] Allergy/AdvReac Type Severity Reaction Status Date / Time No Known Allergies Allergy Verified 01/20/18 13:08 All Systems Review: The remainder of the systems were reviewed and are negative - Constitutional Constitutional: no chills, no fever(s) - Cardiovascular Cardiovascular: dyspnea on exertion, no chest pain at rest, no chest pain with exertion, no dyspnea at rest - Respiratory Respiratory: no cough, no hemoptysis - Gastrointestinal Gastrointestinal: melena, no abdominal pain Exam Vital Signs, Last 4 Hours Pulse Resp BP Pulse Ox 01/28/18 11:17 58 19 112/82 98 General: Present: Conversant, No Apparent Distress HEENT: Present: Trachea midline, Pupils equal Neck: Absent: JVD, Lymphadenopathy, Left Carotid bruit, Right Carotid bruit Cardiac: Present: Reg Rate and Rhythm, Normal S1 and S2 Lungs: Present: Normal Breath Sounds, No Wheeze, Rales, Rhonchi Neuro: Present: Alert and responsive, No focal deficits noted, Motor nerves grossly intact, Sensory nerves grossly intact Abdomen: Present: Soft, Non-tender Vascular: Present: Normal capillary refill, Pulse, normal, Edema (Furs Salesperson bilateral lower extremity edema). Absent: Cyanosis Skin: Present: No rashes noted on visualized skin Musculoskeletal: Present: No Chest Wall Tenderness Consult Discharge Plan - Plan Referrals: Sona Quezada, EDINSON [Primary Care Provider] -
--- NOTE | 2018-01-28 14:00 | Pre-Sedation Evaluation ---
Pre-sedation evaluation - Pre-sedation checklist Date of procedure: 01/28/18 Procedure: IVC Filter Recent Vitals: Last Vital Signs Temp 98.2 F 01/28/18 07:00 Pulse 58 01/28/18 11:17 Resp 19 01/28/18 11:17 BP 112/82 01/28/18 11:17 Pulse Ox 98 01/28/18 11:17 H&P (including ROS) documented in medical record: Yes Previous reaction to sedatives/anesthetics: No Dietary Status: NPO after Midnight ASA Classification *see protocol: CLASS III-Severe systemic disease Plan of Care: Pt appropriate candidate for procedure/moderate/conscious sedation, Risks/benefits of procedure/sedation discussed w/ patient/family
--- NOTE | 2018-01-28 14:22 | Procedure Note ---
Date of procedure: 01/28/18 Pre-op diagnosis: Deep vein thrombosis, pulmonary embolus, gastrointestinal hemorrhage Post-op diagnosis: same Procedure: Placement of Celect inferior vena cava filter via right common femoral vein. Direct pressure held for hemostasis. Anesthesia: local Surgeon: Sandro Chaudhry Was there an physician assistant certified present: No Estimated blood loss (cc): 1 Specimen: None Condition: stable (No complications) Disposition: floor
--- NOTE | 2018-01-28 14:28 | Invasive Diagnostic Lab Proc ---
Name: Uli Chauhan Date of Study: 01/28/2018 Date: 1955 Ht: 185.0 in Medical Record#: [id number] Age: 62 Wt: 97 lb Gender: Male BSA: 2.21 Order #: [id number] BMI: 28.34 Physicians Performing MD: Sandro Chaudhry MD Referring MD: Referring MD: Staff Name Position Time In Julio Hanks RT (R) Scrub Sites, Olga RT (R) Monitor Sophie Richardson RN Dial Brusher Indications Pulmonary Embolism Procedures Performed IVC FILTER PLACEMENT Pre-Procedure Checklist Informed consent is complete signed and on chart. H&P is on chart. ID band is on and ID verified with patient. Patient NPO for procedure The procedure was described for the patient and questions were answered. Blood Pressure: 123/68 ECG is on chart. Rhythm: NSR Plan of Care Patient will tolerate the procedure without complications. Adequate level of comfort will be maintained. Hemodynamics will remain stable Patient will recover from procedure without complications. Respiratory function will be maintained. Cardiac rhythm will remain stable. Patient temperature will be maintained. Patient and/or family have verbalized understanding of the procedure. Patient Education Chief Complaint/Reason for Test: Peripheral angiogram Developmental Category: Adult (18-64 years) Learning Barriers: None Education Needs: Procedure Education Method: Verbal Information Taught: Peripheral angiogram Educational Evaluation: Able to repeat information Intravenous Access Time IV Size Location DC'd Fluid/Drip Rate Units RN Venous access port Allergies No Known Allergies Vital Signs Time BP Systolic BP Diastolic HR O2 Sats ASA 02:00 PM 02:00 PM Procedure Medications Time Medication Dose Units Method Route 01:58 PM Oxygen 2 L/min nasal cannula 02:04 PM Lidocaine 2% 6 ml Subcutaneous ASA Classification: CLASS III- Severe systemic disease (i.e. prior AMI, diabetes with vascular complications, morbid obesity) Aldo Score Preprocedure Postprocedure Activity 2- Moves 4 extremities sustained head lift Activity 2- Moves 4 extremities sustained head lift Circulation 2- SBP +/= 20 points of pre-anesthetic level Circulation 2- SBP +/= 20 points of pre-anesthetic level Consciousness 2- Awake and alert oriented x 3 Consciousness 2- Awake and alert oriented x 3 O2 Saturation 2- Able to maintain O2 satruation of 92% on room air O2 Saturation 2- Able to maintain O2 satruation of 92% on room air Respiratory 2- Able to deep breathe and cough well Respiratory 2- Able to deep breathe and cough well Total Score 10 Total Score 10 Contrast: Isovue 250- 150ml Contrast Amount: 8 ml Fluoro Dose: 114 mGy Procedure Log Time Note Entered By 01:37 PM Pt arrived to labor utilization superintendent 1 at 13:36 tsites 01:37 PM Julio Hanks RT (R) Position: Scrub Time in: 13:37 tsites 01:37 PM Olga Barrios RT (R) Position: Monitor Time in: 13:37 tsites 01:37 PM Sophie Richardson RN Position: Dial Brusher Time in: 13:37 tsites 01:37 PM Case delayed: No tsites 01:37 PM Physician arrived 13:37 tsites 01:37 PM Meet and greet completed tsites 01:37 PM Sign in performed according to hospital policy. tsites 01:37 PM Procedure start 13:37 tsites 01:58 PM Hair removed from procedure site in holding area using clippers. Bilateral groin prepped with Chloraprep by Olga Barrios (R), then patient was draped. Skin intact. tsites 01:58 PM 13:58 Oxygen at 2 L/min per nasal cannula by Sophie Richardson RN tsites 02:00 PM Time: 14:00 Is patient comfortable and pain free?: Yes tsites 02:00 PM Time: 14:00LOC: 5 = Fully awake and oriented or at pre-proc level tsites 02:04 PM Ultrasound, Sonosite, utilized to obtain vascular access tsites 02:05 PM 14:04 6 ml Lidocaine 2% to right groin Subcutaneous Given By Sandro Chaudhry MD tsites 02:05 PM 0.035 180cm Bentson wire utilized to assist with catheter placement tsites 02:06 PM Patient Charges- [employer] Celect IVC Filter SN/LOT# [id number],Tray Pack and Pulse Oximetry. tsites 02:08 PM Access obtain and IVC Filter sheath inserted Rt Femoral vein. tsites 02:08 PM Inferiorvenacavagram performed. 4cc tsites 02:08 PM IVC Filter inserted into the inferior vena cava tsites 02:09 PM IVC Filter deployed into the inferior vena cava tsites 02:09 PM Inferiorvenacavagram performed. 4cc tsites 02:10 PM Procedure completed at 14:10 tsites 02:10 PM Sign Out completed: Radiation Dose 114 mGy Fluoro Time: 1.1 minutes. Isovue 250- 150ml contrast 8 ml given by Sandro Chaudhry MD. Complications: None. Confirmed administered medications:Yes tsites 02:10 PM Isovue 250- 150ml,1 bottle(s) used. tsites 02:13 PM Venous sheath pulled using manual compression and V+Pad for 15 minutes by Julio Hanks RT (R) tsites 02:13 PM Estimated Blood Loss: minimal tsites 02:13 PM Post Blood Pressure: 140/85 tsites 02:13 PM Post EKG: NSR tsites 02:13 PM 14:13 Post Pulses: Bilateral DP & PT Doppler. tsites 02:13 PM Information taught: IVC filter tsites 02:14 PM Education needs: Procedure, Disease Process, and Plan of Care tsites 02:14 PM Learning barriers: None tsites 02:14 PM Education methods: Verbal tsites 02:14 PM Education evaluation: Able to repeat information tsites 02:16 PM Time: 14:00LOC: 4 = Oriented but drowsy tsites 02:16 PM Time: 14:00 Is patient comfortable and pain free?: Yes tsites 02:18 PM Report given to suni JONES. Pt taken to [facility], Room # 20 14:18 tsites 02:18 PM Delay to floor: No tsites 02:19 PM Pt taken to [facility] Room# 20 tsites 02:19 PM Family placed in consult room. tsites 02:20 PM Site status No bleeding/hematoma - Rt Groin as reported by Julio Hanks RT (R) at 14:20 tsites 02:20 PM Opsite applied tsites 02:20 PM Delay to floor: No tsites 02:20 PM Patient out of room 14:20 tsites Post Procedure Information Blood Pressure: 140/85 mmHg Rhythm: NSR Post procedure instructions given Site Checks Time Location Status Staff Sheath In? Note 2:20:00 PM Rt Groin No bleeding/hematoma Julio Hanks RT (R) Pulses Time Site Pre Procedure Post Procedure Note Bilateral DP & PT Doppler 2:13:00 PM Bilateral DP & PT Doppler Updated by Olga Barrios RT (R) on 01/28/2018 2:23:34 PM Olga Barrios RT electronically signed on 01/28/2018 2:24:00 PM with status of Final
--- NOTE | 2018-01-28 15:56 | Gastroenterology Consult Note ---
<Rosamaria Daniels - Last Filed: 01/28/18 15:52> Date of Encounter: 01/28/18 Time of Encounter: 09:45 - Assessment and plan (1) Normocytic anemia Current Visit: Yes Status: Acute Assessment and plan: Pt complains of dark stools. He was on heparin which has been stopped. He may need GI bleed to rule out upper GI bleeding. Continue PPI. (2) Pancreatic cancer Current Visit: No Status: Chronic Assessment and plan: Pt is on palliative chemo. Qualifiers: Pancreatic malignancy location: unspecified Qualified Code(s): C25.9 - Malignant neoplasm of pancreas, unspecified (3) Pulmonary embolism Current Visit: Yes Status: Acute Assessment and plan: Heparin on hold. Pt had IV filter placed today. Qualifiers: Pulmonary embolism type: other Chronicity: acute Acute cor pulmonale presence: without acute cor pulmonale Qualified Code(s): I26.99 - Other pulmonary embolism without acute cor pulmonale - Time Spent With Patient Total time spent is greater than 50% in coordination of care (as documented) at patient's floor/unit and/or counseling patient: GI History of Present Illness - Data of Consult Patient: known to practice within the last 3 years Consult date: 01/28/18 Requesting Physician: Avery Connolly MD - Consult Narrative Reason for consult: anemia History of present illness: Mr. Chauhan is a 62 year old male with a history of hypertension, hyperlipidemia, diabetes, chronic back pain, and pancreatic cancer with metastasis to liver and the lungs. He is currently undergoing palliative chemotherapy. CT of the chest and abdomen today per his oncologist revealed an acute pulmonary embolism in the right lower lobar pulmonary artery. He was sent to Er and started on heparin gtt and admitted to the hospitalist service for further management of his pulmonary embolism. Laboratory studies in the ED revealed a decreased hemoglobin of 11.6. Review of prior laboratory studies showed a hemoglobin of 13.3 on 01/20/2018. The patient denied any recent bleeding episodes. He did report a recent stool that was darker in color; however, there was no momo blood present. Stool hemoccult was positive. Mr. Chauhan is complaining of epigastric pain which she states is due to his cancer. He denies any nausea or vomiting. He states he has occasional diarrhea, dark in color but denies any black tarry stools. He denies any bright red rectal bleeding. He denies previous EGD or colonoscopy, he had an ERCP with stent placed in October [address] DIAL. He denies NSAIDs or anticoagulants at home.heparin drip is currently on hold. Past Med Surg Social Fam HX - Past Medical History Medical history: cancer, diabetes, hyperlipidemia, hypertension Additional medical history: chronic back pain, liver/pancreatic/lung CA Psychiatric history: no psych history - Past Surgical History Surgical History: other Additional surgical history: R knee repair, spinal stimulator - Social History Smoking Status: Current every day smoker Smokeless Tobacco Status: No Alcohol use: none Drug use: none - Family History Mother Adopted: No Twin of Family Member: Yes, Fraternal Living Status: Hx Family Cardiac Disorders: No Hx Family Respiratory Disorders: No Hx Family GI Disorders: No Hx Family Endocrine Disorder: Yes Hx Family Neuromuscular Disorders: No Hx Family Neurologic Disorders: No Hx Family HEENT Disorders: No Hx Family Autoimmune Disorders: No Paternal Grandmother Living Status: Hx Family Cardiac Disorders: Yes Hx Family Respiratory Disorders: No Hx Family Cancer: No Hx Family GI Disorders: No Hx Family Endocrine Disorder: Yes Hx Family Neuromuscular Disorders: No Hx Family Neurologic Disorders: No Hx Family HEENT Disorders: No Hx Family Autoimmune Disorders: No Maternal Grandmother Living Status: Hx Family Cardiac Disorders: Yes Hx Family Endocrine Disorder: Yes Maternal Grandfather Living Status: Hx Family Cardiac Disorders: Yes Hx Family Cancer: Yes (Prostate Cancer) Brother Living Status: Hx Family Respiratory Disorders: Yes (COPD) Hx Family Cancer: Yes (Lung) Sister Living Status: Hx Family Respiratory Disorders: Yes (COPD) Hx Family Cancer: Yes (Lung Cancer) Hx Family Endocrine Disorder: Yes (Diabetes) Review of Systems: GI: as per [facility]: denies fever, has some chills EYES: denies yellow discoloration ENT: denies pain with swallowing or difficulty swallowing CARDIO: denies chest pain, palpitations RESP: No Shortness of breath with exertion : denies change in color of urine NEURO: denies any weakness HEME: Denies any bruising MS: denies joint pain, joint swelling or back pain. DERM: denies rash or itching PSYCH: Denies history of anxiety or depression - Constitutional Vitals: Temp Pulse Resp BP Pulse Ox 97.6 F 55 18 119/80 97 01/28/18 15:29 01/28/18 15:29 01/28/18 15:29 01/28/18 15:29 01/28/18 15:29 Exam: CONSTITUTIONAL:alert, no acute distress.HEAD:normocephalic.EYES:no jaundice.NECK:no obvious swelling.HEART:regular rate and rhythm, no murmurs.LUNGS:bilateral fair air entry.ABDOMEN:non distended, soft,very tender epigastric area.RECTAL EXAM:Deferred.EXTREMITIES:no clubbing, cyanosis or edema.SKIN:no stigmata of chronic liver disease.NEUROLOGIC:no obvious focal defect. Results - Labs CBC & Chem 7: 01/28/18 01:15 01/28/18 05:30 Labs: Last Result Calcium 9.2 mg/dL (8.6-10.3) 01/28/18 05:30 Stool Occult Blood Positive (Negative) A 01/27/18 22:15 Entire Visit Hgb 11.6 g/dL (12.9-16.9) L 01/28/18 01:15 Hct 34.8 % (37.5-50.1) L 01/28/18 01:15 PT 13.6 Seconds (9.4-12.1) H 01/28/18 05:30 Total Bilirubin 0.5 mg/dL (0.3-1.0) 01/27/18 18:20 AST 33 Units/L (13-39) 01/27/18 18:20 ALT 45 Units/L (7-52) 01/27/18 18:20 - ABG ABG results: PT/INR, D-dimer PT 13.6 Seconds (9.4-12.1) H 01/28/18 05:30 Consult Discharge Plan - Plan Referrals: Sona Quezada, MEDIA PRODUCTION OPERATOR [Primary Care Provider] - <Ranjan Dial - Last Filed: 01/28/18 18:45> Time of Encounter: 17:00 - Time Spent With Patient Total time spent is greater than 50% in coordination of care (as documented) at patient's floor/unit and/or counseling patient: GI History of Present Illness - Data of Consult Requesting Physician: Avery Connolly MD - Consult Narrative History of present illness: Mr. Chauhan is a 62 year old male - Constitutional Vitals: Temp Pulse Resp BP Pulse Ox 97.6 F 56 18 123/83 98 01/28/18 15:29 01/28/18 16:57 01/28/18 16:57 01/28/18 16:57 01/28/18 16:57 Results - Labs CBC & Chem 7: 01/28/18 01:15 01/28/18 05:30 Labs: Last Result Calcium 9.2 mg/dL (8.6-10.3) 01/28/18 05:30 Stool Occult Blood Positive (Negative) A 01/27/18 22:15 Entire Visit Hgb 11.6 g/dL (12.9-16.9) L 01/28/18 01:15 Hct 34.8 % (37.5-50.1) L 01/28/18 01:15 PT 13.6 Seconds (9.4-12.1) H 01/28/18 05:30 Total Bilirubin 0.5 mg/dL (0.3-1.0) 01/27/18 18:20 AST 33 Units/L (13-39) 01/27/18 18:20 ALT 45 Units/L (7-52) 01/27/18 18:20 - ABG ABG results: PT/INR, D-dimer PT 13.6 Seconds (9.4-12.1) H 01/28/18 05:30 - Attending Attestation I have personally performed a face to face evaluation on this patient. I have reviewed and agree with the care plan. History and Exam by me shows: Pt seen. Denies any abdominal pain currently. Examination abdomen is soft. Assessment patient 62-year-old male with metastatic pancreatic cancer now with melena and PE. Status post Krunal filter placement. Rec: EGD today follow H&H. If EGD is unremarkable or if found to have any bleeding lesions that could be cauterized/clipped then patient can be started back on heparin infusion
--- NOTE | 2018-01-28 16:36 | Oncology Inp Consult Note ---
<Florence Matthews L - Last Filed: 01/29/18 06:26> Date of Encounter: 01/28/18 Time of Encounter: 16:00 Assessment and Plan (1) Pulmonary embolism Status: Acute Assessment and plan: CT notes good control of malignancy with decrease in size of pancreatic mass as well as liver and lung lesions however has incidentally noted pulmonary embolism in the right lower lobar pulmonary artery. LE venous doppler- Preliminary report is negative for DVT Patient is asymptomatic, O2 sats normal on room air Heparin gtt was stopped overnight by admitting services secondary to concern for acute GIB with positive FOBT and hgb decrease from 13 to 11 Upon arrival to patients room he has already had IVC filter placed and planned for EGD Patient denies any s/s bleeding Recommend initiation of heparin gtt following EGD if no s/s active bleeding noted upon endoscopy Plan to transition to lovenox at discharge, consult SS for assistance with pricing We will plan to transition to DOAC on outpatient basis following about 4 weeks of Lovenox Qualifiers: Pulmonary embolism type: other Chronicity: acute Acute cor pulmonale presence: without acute cor pulmonale Qualified Code(s): I26.99 - Other pulmonary embolism without acute cor pulmonale (2) Pancreatic cancer Status: Chronic Assessment and plan: S/P Gemcitabine/Abraxane 01/20/18 Tolerating well with good radiographic control of malignancy Continue treatment plan on outpatient basis Qualifiers: Pancreatic malignancy location: unspecified Qualified Code(s): C25.9 - Malignant neoplasm of pancreas, unspecified - Data of Consult Patient: known to practice within the last 3 years Consult date: 01/28/18 Requesting Physician: Avery Connolly MD Primary Care Provider: Sona Quezada CNP - Consult Narrative Reason for consult: Stage IV Pancreatic Adenocarcinoma History of present illness: Mr. Chauhan is a 62 year old male with past medical history significant for COPD, chronic low back pain status post stimulator placement, gastroesophageal reflex disease, hypertension, hyperlipidemia, chronic bronchitis, diabetes mellitus and chronic smoking history. Patient underwent ERCP with biliary stent placement and biopsy of pancreatic head mass. Pathology revealed pancreatic adenocarcinoma. CT of the abdomen revealed multiple liver lesions. He was hospitalized following his first cycle of Gemcitabone/Abraxane in October 2017 due to confusion and sepsis with hyperbilirubinemia of 6. He underwent a another stent placement on top of the metallic stent and treated with antibiotics. Since this time, he has tolerated treatment well. Mr. Chauhan had routine restaging CT chest/abdomen/pelvis on 01/27/2018. CT notes good control of malignancy with decrease in size of pancreatic mass as well as liver and lung lesions however has incidentally noted pulmonary embolism in the right lower lobar pulmonary artery. In speaking with Dr. Archibald he felt as though the CT of the chest was diagnostic enough for PE and would not require further dedicated imaging or CTA. Patient was notified and asked to present to ER. Past Med Surg Social Fam HX - Past Medical History Medical history: cancer, diabetes, hyperlipidemia, hypertension Additional medical history: chronic back pain, liver/pancreatic/lung CA Psychiatric history: no psych history - Past Surgical History Surgical History: other Additional surgical history: R knee repair, spinal stimulator - Social History Smoking Status: Current every day smoker Smokeless Tobacco Status: No Alcohol use: none Drug use: none - Family History Brother Living Status: Hx Family Respiratory Disorders: Yes (COPD) Hx Family Cancer: Yes (Lung) Maternal Grandfather Living Status: Hx Family Cardiac Disorders: Yes Hx Family Cancer: Yes (Prostate Cancer) Maternal Grandmother Living Status: Hx Family Cardiac Disorders: Yes Hx Family Endocrine Disorder: Yes Mother Adopted: No Twin of Family Member: Yes, Fraternal Living Status: Hx Family Cardiac Disorders: No Hx Family Respiratory Disorders: No Hx Family GI Disorders: No Hx Family Endocrine Disorder: Yes Hx Family Neuromuscular Disorders: No Hx Family Neurologic Disorders: No Hx Family HEENT Disorders: No Hx Family Autoimmune Disorders: No Paternal Grandmother Living Status: Hx Family Cardiac Disorders: Yes Hx Family Respiratory Disorders: No Hx Family Cancer: No Hx Family GI Disorders: No Hx Family Endocrine Disorder: Yes Hx Family Neuromuscular Disorders: No Hx Family Neurologic Disorders: No Hx Family HEENT Disorders: No Hx Family Autoimmune Disorders: No Sister Living Status: Hx Family Respiratory Disorders: Yes (COPD) Hx Family Cancer: Yes (Lung Cancer) Hx Family Endocrine Disorder: Yes (Diabetes) Medications and Allergies RX: Famotidine [Heartburn Prevention] 20 mg PO BID 06/21/17 [History] RX: Linagliptin [Tradjenta] 5 mg PO DAILY 06/21/17 [History] RX: Metformin HCl [Glucophage] 1,000 mg PO DAILY 06/21/17 [History] RX: Simvastatin [Zocor] 20 mg PO HS 06/21/17 [History] RX: Alogliptin Benzoate [Alogliptin] 25 mg PO DAILY 11/06/17 [History] RX: HYDROcodone/Acet 10/325 mg [[place] 10-325 mg] 1 tab PO Q6H PRN 11/07/17 [History] RX: Ondansetron [Zofran] 8 mg PO Q8HR PRN #60 tablet 11/14/17 [Rx] RX: Prochlorperazine Maleate [Compazine] 10 mg PO Q6HR PRN #90 tablet 11/14/17 [Rx] RX: Lidocaine/Prilocaine [Emla] 1 appl TP AD #30 gm 11/25/17 [Rx] RX: Amlodipine Besylate 10 mg PO DAILY 11/27/17 [History] RX: Glimepiride [Amaryl] 4 mg PO Q12H 11/27/17 [History] RX: Potassium Chloride [K-Tab ER] 40 meq PO DAILY #6 tablet.er 12/23/17 [Rx] RX: OxyCODONE Immed Rel [Roxicodone 10 MG] 10 mg PO Q6H PRN 30 Days #120 tab 01/06/18 [Rx] Enoxaparin [Lovenox] 90 mg SQ Q12HR #56 syr 01/29/18 [Rx] Allergy/AdvReac Type Severity Reaction Status Date / Time No Known Allergies Allergy Verified 01/20/18 13:08 Constitutional: Present: anorexia, fatigue, weakness, weight loss. Absent: chills, fever(s) Eyes: Absent: change in vision Nose, mouth and throat: Absent: dysphagia, odynophagia Cardiovascular: Absent: chest pain, palpitations Respiratory: Present: dyspnea on exertion. Absent: cough, dyspnea (chronic and unchanged), hemoptysis Gastrointestinal: Present: abdominal pain. Absent: change in bowel habits, hematemesis, hematochezia, melena, nausea, vomiting Additional comments: denies dysuria Musculoskeletal: Present: muscle weakness Integumentary: Absent: wounds Neurological: Absent: focal weakness, frequent falls Hematologic/Lymphatic: Present: as per HPI Oncology - Exam - Constitutional Vitals: Temp Pulse Resp BP Pulse Ox 97.6 F 55 18 119/80 97 01/28/18 15:29 01/28/18 15:29 01/28/18 15:29 01/28/18 15:29 01/28/18 15:29 General appearance: cooperative, no acute distress, no febrile - Head Head exam: Present: atraumatic - ENT ENT exam: Present: mucous membranes moist - Respiratory Respiratory exam: Present: CTAB. Absent: respiratory distress - Cardiovascular Cardiovascular exam: Present: RRR, +S1, +S2 - GI/Abdominal GI/Abdominal exam: Present: normal bowel sounds, soft, tenderness (LUQ) - Extremities Exam Extremities exam: Absent: calf tenderness - Neurological Exam Neurological exam: Present: alert, oriented X3, no focal deficits, strengths equal and symetr throughout - Psychiatric Psychiatric exam: Present: normal affect, normal mood - Skin Skin exam: Present: dry, intact, normal color, warm Consult Discharge Plan - Plan Referrals: Sona Quezada CNP [Primary Care Provider] - Prescriptions: Enoxaparin [Lovenox] 90 mg SQ Q12HR #56 syr <Marek Renteria - Last Filed: 01/29/18 10:15> Date of Encounter: 01/29/18 - Data of Consult Requesting Physician: Avery Connolly MD Primary Care Provider: Sona Quezada CNP - Consult Narrative History of present illness: Mr. Chauhan is a 62 year old male Oncology - Exam - Constitutional Vitals: Temp Pulse Resp BP Pulse Ox 97.8 F 53 18 103/66 94 01/29/18 07:12 01/29/18 07:12 01/29/18 07:12 01/29/18 07:12 01/29/18 07:12 Oncology - Results Labs: 01/29/18 01/29/18 01/29/18 04:50 04:50 04:50 WBC 5.9 RBC 3.94 L Hgb 11.8 L Hct 35.7 L MCV 90.6 MCH 29.9 MCHC 33.1 RDW 15.5 H Plt Count 154 MPV 10.6 Immature Gran % 0.5 Seg Neutrophils % 56.6 Lymphocytes % 25.7 Monocytes % 13.9 Eosinophils % 3.0 Basophils % 0.3 Neutrophils # 3.3 Lymphocytes # 1.5 Monocytes # 0.8 Eosinophils # 0.2 Basophils # 0.0 PT INR APTT Heparin Anti-Xa, Unfract 0.45 Sodium 137 Potassium 3.6 Chloride 104 Carbon Dioxide 24 BUN 6 L Creatinine 0.55 L Est GFR ( Amer) > 60 Est GFR (Non-Af Amer) > 60 BUN/Creatinine Ratio 11 Glucose 133 H POC Glucose Calculated Osmolality 284 Calcium 8.8 Total Bilirubin AST ALT Alkaline Phosphatase Serum Total Protein Albumin Globulin Albumin/Globulin Ratio Stool Occult Blood Blood Type Antibody Screen 01/28/18 01/28/18 01/28/18 21:20 19:00 18:19 WBC RBC Hgb 11.7 L Hct 35.6 L MCV MCH MCHC RDW Plt Count MPV Immature Gran % Seg Neutrophils % Lymphocytes % Monocytes % Eosinophils % Basophils % Neutrophils # Lymphocytes # Monocytes # Eosinophils # Basophils # PT INR APTT Heparin Anti-Xa, Unfract Sodium Potassium Chloride Carbon Dioxide BUN Creatinine Est GFR ( Amer) Est GFR (Non-Af Amer) BUN/Creatinine Ratio Glucose POC Glucose 227 H 100 H Calculated Osmolality Calcium Total Bilirubin AST ALT Alkaline Phosphatase Serum Total Protein Albumin Globulin Albumin/Globulin Ratio Stool Occult Blood Blood Type Antibody Screen 01/28/18 01/28/18 01/28/18 17:42 11:19 05:32 WBC RBC Hgb Hct MCV MCH MCHC RDW Plt Count MPV Immature Gran % Seg Neutrophils % Lymphocytes % Monocytes % Eosinophils % Basophils % Neutrophils # Lymphocytes # Monocytes # Eosinophils # Basophils # PT INR APTT Heparin Anti-Xa, Unfract 0.02 L Sodium Potassium Chloride Carbon Dioxide BUN Creatinine Est GFR ( Amer) Est GFR (Non-Af Amer) BUN/Creatinine Ratio Glucose POC Glucose 164 H 158 H Calculated Osmolality Calcium Total Bilirubin AST ALT Alkaline Phosphatase Serum Total Protein Albumin Globulin Albumin/Globulin Ratio Stool Occult Blood Blood Type Antibody Screen 01/28/18 01/28/18 01/28/18 05:30 05:30 01:15 WBC RBC Hgb Hct MCV MCH MCHC RDW Plt Count MPV Immature Gran % Seg Neutrophils % Lymphocytes % Monocytes % Eosinophils % Basophils % Neutrophils # Lymphocytes # Monocytes # Eosinophils # Basophils # PT 13.6 H INR 1.2 APTT Heparin Anti-Xa, Unfract Sodium 138 Potassium 3.9 Chloride 105 Carbon Dioxide 29 BUN 9 Creatinine 0.54 L Est GFR ( Amer) > 60 Est GFR (Non-Af Amer) > 60 BUN/Creatinine Ratio 17 Glucose 141 H POC Glucose Calculated Osmolality 287 Calcium 9.2 Total Bilirubin AST ALT Alkaline Phosphatase Serum Total Protein Albumin Globulin Albumin/Globulin Ratio Stool Occult Blood Blood Type A POSITIVE Antibody Screen NEGATIVE 01/28/18 01/28/18 01/28/18 01:15 01:15 00:36 WBC 4.9 RBC 3.84 L Hgb 11.6 L Hct 34.8 L MCV 90.6 MCH 30.2 MCHC 33.3 RDW 15.0 H Plt Count 148 MPV 10.4 Immature Gran % 0.6 Seg Neutrophils % 49.6 Lymphocytes % 32.6 Monocytes % 13.3 Eosinophils % 3.5 Basophils % 0.4 Neutrophils # 2.4 Lymphocytes # 1.6 Monocytes # 0.7 Eosinophils # 0.2 Basophils # 0.0 PT INR APTT Heparin Anti-Xa, Unfract 0.18 L Sodium Potassium Chloride Carbon Dioxide BUN Creatinine Est GFR ( Amer) Est GFR (Non-Af Amer) BUN/Creatinine Ratio Glucose POC Glucose 193 H Calculated Osmolality Calcium Total Bilirubin AST ALT Alkaline Phosphatase Serum Total Protein Albumin Globulin Albumin/Globulin Ratio Stool Occult Blood Blood Type Antibody Screen 01/27/18 01/27/18 01/27/18 22:15 21:24 18:20 WBC RBC Hgb Hct MCV MCH MCHC RDW Plt Count MPV Immature Gran % Seg Neutrophils % Lymphocytes % Monocytes % Eosinophils % Basophils % Neutrophils # Lymphocytes # Monocytes # Eosinophils # Basophils # PT INR APTT Heparin Anti-Xa, Unfract Sodium 134 L Potassium 3.7 Chloride 100 Carbon Dioxide 30 H BUN 7 L Creatinine 0.58 L Est GFR ( Amer) > 60 Est GFR (Non-Af Amer) > 60 BUN/Creatinine Ratio 12 Glucose 227 H POC Glucose 210 H Calculated Osmolality 283 Calcium 8.7 Total Bilirubin 0.5 AST 33 ALT 45 Alkaline Phosphatase 177 H Serum Total Protein 5.8 L Albumin 3.2 L Globulin 2.6 Albumin/Globulin Ratio 1.2 Stool Occult Blood Positive A Blood Type Antibody Screen 01/27/18 01/27/18 18:00 18:00 WBC 4.6 RBC 3.91 L Hgb 11.6 L Hct 35.5 L MCV 90.8 MCH 29.7 MCHC 32.7 RDW 14.8 H Plt Count 157 MPV 10.9 Immature Gran % 0.4 Seg Neutrophils % 51.8 Lymphocytes % 29.7 Monocytes % 13.7 Eosinophils % 3.7 Basophils % 0.7 Neutrophils # 2.4 Lymphocytes # 1.4 Monocytes # 0.6 Eosinophils # 0.2 Basophils # 0.0 PT 13.2 H INR 1.2 APTT 34.7 Heparin Anti-Xa, Unfract Sodium Potassium Chloride Carbon Dioxide BUN Creatinine Est GFR ( Amer) Est GFR (Non-Af Amer) BUN/Creatinine Ratio Glucose POC Glucose Calculated Osmolality Calcium Total Bilirubin AST ALT Alkaline Phosphatase Serum Total Protein Albumin Globulin Albumin/Globulin Ratio Stool Occult Blood Blood Type Antibody Screen - Attending Attestation I examined this patient and my medical decision-making was reviewed with the Advanced Practice Nurse, Florence Matthews. I agree with the documented findings, disposition and treatment plan as described except to the extent set forth below. Inpatient Charges Provider: Dr. Danya Renteria Consult - Inpatient: [id number]
[2018-01-28] MEDS ORDERED: Lidocaine -MPF 2% 2 ML VIAL ONE (17:00)
[2018-01-28] MEDS ORDERED: Propofol 500 MG/50 ML INFUS..BTL ONE (17:00)
[2018-01-28] MEDS ORDERED: *HR* Propofol 200 MG/20 ML VIAL IVP ONE (17:00)
[2018-01-28] MEDS ORDERED: *HR* Heparin 5,000 UNIT/ML VIAL IVP PRN ×2 (17:42)
[2018-01-28] MEDS ORDERED: Heparin 25,000 UNIT/500 ML D5W 25,000 UNIT/500 ML BAG IVC SCH (17:45)
[2018-01-28 21:20] LABS: Hematocrit 35.6 % (37.5-50.1); Hemoglobin 11.7 g/dL (12.9-16.9)
[2018-01-28] MEDS: *HR* OxyCODONE Immed Rel 5 MG TABLET PO PRN (21:23)
[2018-01-29] MEDS: Pantoprazole 40 MG VIAL IVP SCH (00:39)
[2018-01-29 05:15] LABS: Basophils % 0.3 %; Eosinophils # 0.2 K/mcL (0.0-0.6); Hematocrit 35.7 % (37.5-50.1); Hemoglobin 11.8 g/dL (12.9-16.9); Immature Granulocytes % 0.5 % (0-4); Lymphocytes # 1.5 K/mcL (0.6-4.6); Lymphocytes % 25.7 %; Mean Corpuscular HGB Conc 33.1 g/dL (31.6-35.5); Mean Corpuscular Hemoglobin 29.9 pg (28.0-33.3); Mean Corpuscular Volume 90.6 fL (83.0-100.0); Mean Platelet Volume 10.6 fL (9.4-12.4); Monocytes # 0.8 K/mcL (0.0-1.3); Monocytes % 13.9 %; Neutrophils # 3.3 K/mcL (1.6-8.9); Platelet Count 154 K/mcL (140-400); Red Blood Count 3.94 M/mcL (4.19-5.50); Red Cell Distribution Width 15.5 % (11.5-14.5); Segmented Neutrophils % 56.6 %
[2018-01-29 05:51] LABS: BUN/Creatinine Ratio 11 (6-26); Blood Urea Nitrogen 6 mg/dL (8-23); Calcium 8.8 mg/dL (8.6-10.3); Carbon Dioxide 24 mEq/L (23-29); Chloride 104 mEq/L (98-107); Glucose 133 mg/dL (70-105); Osmolality,Calculated 284 (280-300); Potassium 3.6 mEq/L (3.5-5.1); Sodium 137 mEq/L (136-145); eGFR For Non-African Americans > 60 (> 60)
[2018-01-29] MEDS: Insulin LISPRO 300 UNITS/3 ML VIAL SQ SCH ×2 (07:41→11:44)
[2018-01-29] MEDS: Nicotine 21 MG PATCH.TD24 TD SCH (09:23)
[2018-01-29] MEDS: amLODIPine 5 MG TABLET PO SCH (09:24)
[2018-01-29] MEDS ORDERED: *HR* Enoxaparin 100 MG/ML SYRINGE SQ SCH (09:45)
[2018-01-29] MEDS: *HR* OxyCODONE Immed Rel 5 MG TABLET PO PRN (09:45)
[2018-01-29 11:39] VITALS: BP 109/79
--- NOTE | 2018-01-29 14:17 | Discharge Summary ---
<Wanda Richard - Last Filed: 01/29/18 14:15> Orders not resulted at time of discharge: Pending orders 01/28/18 08:11 CL IVC Filter [CL] Routine Date of Encounter: 01/29/18 Time of Encounter: 14:15 - Discharge Diagnosis (1) Pulmonary embolism Priority: Primary Status: Acute Qualifiers: Pulmonary embolism type: other Chronicity: acute Acute cor pulmonale presence: without acute cor pulmonale Qualified Code(s): I26.99 - Other pulmonary embolism without acute cor pulmonale (2) Pancreatic cancer Priority: Secondary Status: Chronic Qualifiers: Pancreatic malignancy location: unspecified Qualified Code(s): C25.9 - Malignant neoplasm of pancreas, unspecified (3) GI bleed Priority: Secondary Status: Acute Qualifiers: GI bleed type/associated pathology: unspecified gastrointestinal hemorrhage type Qualified Code(s): K92.2 - Gastrointestinal hemorrhage, unspecified (4) Diabetes mellitus Priority: Secondary Status: Chronic Qualifiers: Diabetes mellitus type: type 2 Diabetes mellitus middle or intermediate school principal insulin use: without middle or intermediate school principal use Diabetes mellitus complication status: with unspecified complications Qualified Code(s): E11.8 - Type 2 diabetes mellitus with unspecified complications (5) Hypertension Priority: Secondary Status: Chronic Qualifiers: Hypertension type: essential hypertension Qualified Code(s): I10 - Essential (primary) hypertension (6) Tobacco use Priority: Secondary Status: Chronic (7) DVT prophylaxis Priority: Secondary Status: Acute Hospital course: Mr. Chauhan is a 62 year old male with PMHx pancreatic cancer with metastasis to liver and lungs on palliative chemotherapy, HTN, HLD, DMII who presented to hospital after CT Chest/Abd showed acute pulmonary embolism in R. Lower Lobe pulmonary artery. Denied chest pain, SOB but was recommended to be evaluted in ED. Pt was started on heparin GTT and admitted to hospitalist service for further management of PE. Lab studies in ED indicated HB = 11.6. Pt did report stool which was darker in color, and guiac stool was positive. Also noted to have bilateral lower extremity edema. Venous doppler of LE was noted to be negative. Due to possible GI Bleed and CI to anticoagulation, pt was consented and IVC filter was placed. Pt tolerated procedure well. Additionally, pt was placed on PPI due to GI Bleed. Pt planned to be discharged on Lovenox BID for 4 weeks. Pt currently stable - denies headaches, blurry vision, chest pain, SOB, nausea, vomiting, diarrhea. Discharge discussed with: patient Time spent discussing smoking cessation with patient: 3 to 10 minutes - Time Spent with Patient Total time spent providing and/or coordinating discharge services: Less than 30 minutes - Discharge Medications Prescriptions: Enoxaparin [Lovenox] 90 mg SQ Q12HR #56 syr RX: Enoxaparin [Lovenox] 90 mg SQ DAILY 7 Days #7 syr Home Medications: RX: Famotidine [Heartburn Prevention] 20 mg PO BID 06/21/17 [History] RX: Linagliptin [Tradjenta] 5 mg PO DAILY 06/21/17 [History] RX: Metformin HCl [Glucophage] 1,000 mg PO DAILY 06/21/17 [History] RX: Simvastatin [Zocor] 20 mg PO HS 06/21/17 [History] RX: Alogliptin Benzoate [Alogliptin] 25 mg PO DAILY 11/06/17 [History] RX: HYDROcodone/Acet 10/325 mg [[place] 10-325 mg] 1 tab PO Q6H PRN 11/07/17 [History] RX: Ondansetron [Zofran] 8 mg PO Q8HR PRN #60 tablet 11/14/17 [Rx] RX: Prochlorperazine Maleate [Compazine] 10 mg PO Q6HR PRN #90 tablet 11/14/17 [Rx] RX: Lidocaine/Prilocaine [Emla] 1 appl TP AD #30 gm 11/25/17 [Rx] RX: Amlodipine Besylate 10 mg PO DAILY 11/27/17 [History] RX: Glimepiride [Amaryl] 4 mg PO Q12H 11/27/17 [History] RX: Potassium Chloride [K-Tab ER] 40 meq PO DAILY #6 tablet.er 12/23/17 [Rx] RX: OxyCODONE Immed Rel [Roxicodone 10 MG] 10 mg PO Q6H PRN 30 Days #120 tab 01/06/18 [Rx] Enoxaparin [Lovenox] 90 mg SQ Q12HR #56 syr 01/29/18 [Rx] RX: Enoxaparin [Lovenox] 90 mg SQ DAILY 7 Days #7 syr 01/29/18 [Rx] RX: Nicotine Patch [Nicoderm] 21 mg TD DAILY patch.td24 01/29/18 [Rx] Allergies/Adverse Reactions: Allergy/AdvReac Type Severity Reaction Status Date / Time No Known Allergies Allergy Verified 01/20/18 13:08 Date of admission: 01/27/18 19:43 Primary care physician: Sona Quezada CNP Consults: 01/28/18 01:04 Consult to Gastroenterology [CONS] Routine Consulting Provider: [facility] Reason for Consult: Possitive occult stool Call Completed: Yes 01/28/18 03:28 Consult to Oncology [CONS] Routine Consulting Provider: [facility] Reason for Consult: Oncology patient - metastatic pancreatic cancer Time Notified: 03:29 Call Completed: No Consult to Vascular Surgery [CONS] Routine Consulting Provider: Vascular [facility] Reason for Consult: Patient has acute PE and high risk for further clot development due to metastatic pancreatic cancer Time Notified: 03:29 Call Completed: Yes Discharging clinician: aWnda Richard Anticipated date of discharge: 01/29/18 - Constitutional Vitals: Temp Pulse Resp BP Pulse Ox 98.3 F 55 18 109/79 95 01/29/18 11:37 01/29/18 11:37 01/29/18 11:37 01/29/18 11:37 01/29/18 11:37 General appearance: Present: cooperative, A&O X 3, pleasant, no acute distress, answers questions appropriately Exam: As Noted above - Head Head exam: Present: atraumatic, normocephalic - Eye Eye exam: Present: PERRL, conjuntiva pink, sclera anicteric - Neck Neck exam general surgery: Present: supple, trachea midline. Absent: lymphadenopathy - Respiratory Respiratory exam: Present: CTAB. Absent: accessory muscle use, rales, rhonchi, wheezes - Cardiovascular Cardiovascular exam: Present: RRR, +S1, +S2. Absent: diastolic murmur, gallop, rubs, systolic murmur - GI/Abdominal GI/Abdominal exam: Present: normal bowel sounds, soft, no peritoneal signs. Absent: distended, tenderness - Extremities Exam Extremities exam: Present: warm, radial pulses palpable and symmetrical. Absent: calf tenderness, cyanotic, pedal edema - Neurological Exam Neurological exam: Present: CN II-XII intact, oriented X3, no focal deficits. Absent: pronater drift, facial droop, speech deficit - Patient Status Disposition: Home, Self-Care Condition: Good Overall status at discharge: patient is progressing back to baseline - Discharge Instructions Follow Up With: Sona Quezada REAL TIME ANALYST [Primary Care Provider] - 02/05/18 10:15 am - Diet and Activity Activity: resume usual activities as tolerated Diet: diabetic diet <Avery Connolly - Last Filed: 01/29/18 17:18> - NOTES TO OUTPATIENT PROVIDER Notes to Outpatient Provider: Patient with metastatic pancreatic cancer hospitalized for acute PE. Underwent upper GI endoscopy to rule out active bleeding as he complained of melena. Also had IVC filter placed. He will be discharged on Lovenox. Orders not resulted at time of discharge: Pending orders 01/28/18 08:11 CL IVC Filter [CL] Routine Date of Encounter: 01/29/18 Time of Encounter: 17:14 - Discharge Diagnosis (1) Diabetes mellitus Status: Chronic Qualifiers: Diabetes mellitus type: type 2 Diabetes mellitus middle or intermediate school principal insulin use: without retirement use Diabetes mellitus complication status: with unspecified complications Qualified Code(s): E11.8 - Type 2 diabetes mellitus with unspecified complications (2) Hypertension Status: Chronic Qualifiers: Hypertension type: essential hypertension Qualified Code(s): I10 - Essential (primary) hypertension (3) DVT prophylaxis Status: Acute (4) Tobacco use Status: Chronic (5) Pancreatic cancer Status: Chronic Qualifiers: Pancreatic malignancy location: unspecified Qualified Code(s): C25.9 - Malignant neoplasm of pancreas, unspecified (6) Pulmonary embolism Status: Acute Qualifiers: Pulmonary embolism type: other Chronicity: acute Acute cor pulmonale presence: without acute cor pulmonale Qualified Code(s): I26.99 - Other pulmonary embolism without acute cor pulmonale (7) Chronic back pain Status: Acute Qualifiers: Back pain location: back pain in unspecified location Qualified Code(s): M54.9 - Dorsalgia, unspecified; G89.29 - Other chronic pain (8) GI bleed Status: Acute Qualifiers: GI bleed type/associated pathology: unspecified gastrointestinal hemorrhage type Qualified Code(s): K92.2 - Gastrointestinal hemorrhage, unspecified Hospital course: Mr. Chauhan is a 62 year old male - Time Spent with Patient Total time spent providing and/or coordinating discharge services: Date of admission: 01/27/18 19:43 Primary care physician: Sona Quezada CNP Consults: 01/28/18 01:04 Consult to Gastroenterology [CONS] Routine Consulting Provider: [facility] Reason for Consult: Possitive occult stool Call Completed: Yes 01/28/18 03:28 Consult to Oncology [CONS] Routine Consulting Provider: [facility] Reason for Consult: Oncology patient - metastatic pancreatic cancer Time Notified: 03:29 Call Completed: No Consult to Vascular Surgery [CONS] Routine Consulting Provider: [facility] Reason for Consult: Patient has acute PE and high risk for further clot development due to metastatic pancreatic cancer Time Notified: 03:29 Call Completed: Yes - Constitutional Vitals: Temp Pulse Resp BP Pulse Ox 98.3 F 55 18 109/79 95 01/29/18 11:37 01/29/18 11:37 01/29/18 11:37 01/29/18 11:37 01/29/18 11:37 General appearance: Present: cooperative, A&O X 3, pleasant, answers questions appropriately - Respiratory Respiratory exam: Present: CTAB. Absent: accessory muscle use, rales, rhonchi, wheezes - Cardiovascular Cardiovascular exam: Present: RRR, +S1, +S2. Absent: diastolic murmur, gallop, rubs, systolic murmur - GI/Abdominal GI/Abdominal exam: Present: normal bowel sounds, soft, no peritoneal signs. Absent: distended, tenderness - Attending Attestation I saw evaluated and examined this patient and my medical decision-making was reviewed with the Resident Physician, Wanda Richard. I agree with the documented findings, disposition and treatment plan as described except to any changes set forth below. We independently had [id number] contact with the patient. Patient with history of metastatic pancreatic cancer was hospitalized here with acute pulmonary embolism in the right lower lobar pulmonary artery. However patient is also complaining of melena. As such heparin was held and patient underwent GI workup with upper GI endoscopy, did not show any acute bleeding. P atient also underwent IVC filter placement. Hematology oncology has been following patient and recommend discharging patient on Lovenox BID. A prescription has been sent for prior authorization and Peer to peer Completed. In the meantime patient will be discharged on once daily dosing of Lovenox and will follow up with primary care provider And heme/oncologist for further management.
[2018-01-29] MEDS ORDERED: Insulin LISPRO 300 UNITS/3 ML VIAL SQ SCH (21:00)
[2018-01-29] MEDS ORDERED: Famotidine 20 MG TABLET PO SCH (21:00)
--- NOTE | 2018-01-29 21:18 | Oncology Inp Progress Note ---
Date of Encounter: 01/29/18 Time of Encounter: 17:00 (1) Pancreatic cancer Status: Chronic Assessment and plan: he will ct with chemo and f/u as scheduled with me next Friday. responding to treatment in imaging studies PE incidental, bilateral on anticoag. Due to concern of bleed he underwent GI eval and filter placement plan d.w pt/ Qualifiers: Pancreatic malignancy location: unspecified Qualified Code(s): C25.9 - Malignant neoplasm of pancreas, unspecified Oncology: Subj Interval history: seen prior to discharge bed side. comfortable, denies SOB or pain - Constitutional Vitals: Vital Signs Temp Pulse Resp BP Pulse Ox 01/29/18 11:37 98.3 F 55 18 109/79 95 01/29/18 07:12 97.8 F 53 18 103/66 94 01/29/18 04:30 98.7 F 58 17 114/75 96 01/29/18 04:20 98.7 F 58 17 114/75 96 01/29/18 01:06 97.9 F 57 16 109/90 96 Intake and Output 01/29/18 01/29/18 01/29/18 07:59 15:59 23:59 Intake Total 818 / 818 600 / 600 Output Total 0 / 0 Balance 818 / 818 600 / 600 Intake: IV Fluids 218 / 218 Heparin 25,000 UNIT/500 ML D5W 218 / 218 25,000 unit In 500 ml @ 14 UNIT /KG/HR 26.236 mls/hr IVC . Q19H4M JOAQUIM Rx#:[id number] Oral 600 / 600 600 / 600 Output: Urine 0 / 0 Other: Meal Breakfast Percent of Meal Consumed 100% Stool Size Moderate Stool Consistency soft # Voids 1 Weight 91.1 kg Blood Glucose* 132 223 Patient Weight 01/29/18 23:59 Weight 91.1 kg General appearance: no acute distress - Head Head exam: Present: atraumatic, normal inspection - Eye Eye exam: Present: sclera anicteric - Neck Neck exam: Present: full ROM - Respiratory Respiratory exam: Present: CTAB - Cardiovascular Cardiovascular exam: Present: +S1, +S2 - GI/Abdominal GI/Abdominal exam: Present: normal bowel sounds, soft - Extremities Exam Extremities exam: Present: normal inspection Oncology: Obj Data - Labs CBC & Chem 7: 01/29/18 04:50 01/29/18 04:50 Labs: Laboratory Results - last 24 hr 01/28/18 01/28/18 01/28/18 18:19 19:00 21:20 WBC RBC Hgb 11.7 L Hct 35.6 L MCV MCH MCHC RDW Plt Count MPV Immature Gran % Seg Neutrophils % Lymphocytes % Monocytes % Eosinophils % Basophils % Neutrophils # Lymphocytes # Monocytes # Eosinophils # Basophils # Heparin Anti-Xa, Unfract Sodium Potassium Chloride Carbon Dioxide BUN Creatinine Est GFR ( Amer) Est GFR (Non-Af Amer) BUN/Creatinine Ratio Glucose POC Glucose 100 H 227 H Calculated Osmolality Calcium 01/29/18 01/29/18 01/29/18 04:50 04:50 04:50 WBC 5.9 RBC 3.94 L Hgb 11.8 L Hct 35.7 L MCV 90.6 MCH 29.9 MCHC 33.1 RDW 15.5 H Plt Count 154 MPV 10.6 Immature Gran % 0.5 Seg Neutrophils % 56.6 Lymphocytes % 25.7 Monocytes % 13.9 Eosinophils % 3.0 Basophils % 0.3 Neutrophils # 3.3 Lymphocytes # 1.5 Monocytes # 0.8 Eosinophils # 0.2 Basophils # 0.0 Heparin Anti-Xa, Unfract 0.45 Sodium 137 Potassium 3.6 Chloride 104 Carbon Dioxide 24 BUN 6 L Creatinine 0.55 L Est GFR ( Amer) > 60 Est GFR (Non-Af Amer) > 60 BUN/Creatinine Ratio 11 Glucose 133 H POC Glucose Calculated Osmolality 284 Calcium 8.8 01/29/18 01/29/18 07:14 11:41 WBC RBC Hgb Hct MCV MCH MCHC RDW Plt Count MPV Immature Gran % Seg Neutrophils % Lymphocytes % Monocytes % Eosinophils % Basophils % Neutrophils # Lymphocytes # Monocytes # Eosinophils # Basophils # Heparin Anti-Xa, Unfract Sodium Potassium Chloride Carbon Dioxide BUN Creatinine Est GFR ( Amer) Est GFR (Non-Af Amer) BUN/Creatinine Ratio Glucose POC Glucose 132 H 223 H Calculated Osmolality Calcium - ABG Interpretation ABG results: PT/INR, D-dimer PT 13.6 Seconds (9.4-12.1) H 01/28/18 05:30 Consult Discharge Plan - Plan Referrals: Sona Quezada CNP [Primary Care Provider] - 02/05/18 10:15 am Prescriptions: Enoxaparin [Lovenox] 90 mg SQ Q12HR #56 syr Enoxaparin [Lovenox] 140 mg SQ DAILY 7 Days #7 syr Inpatient Charges Follow up - Inpatient: [id number]
--- NOTE | 2018-01-30 08:10 | Vascular/Endovas Progress Note ---
Date of Encounter: 01/29/18 Time of Encounter: 17:00 - Assessment and plan (1) Pulmonary embolism Status: Acute The patient has a history of deep vein thrombosis and pulmonary embolus. He is also has a history of GI bleeding. He has undergone saphenous. He has undergone inferior vena cava filter placement. The filter is for permanent placement. Patient may be discharged to home. Vascular perspective and will follow up as needed. Qualifiers: Pulmonary embolism type: other Chronicity: acute Acute cor pulmonale presence: without acute cor pulmonale Qualified Code(s): I26.99 - Other pulmonary embolism without acute cor pulmonale (2) GI bleed Status: Acute The patient reportedly had an unremarkable EGD and colonoscopy. He denies any further melena. Qualifiers: GI bleed type/associated pathology: unspecified gastrointestinal hemorrhage type Qualified Code(s): K92.2 - Gastrointestinal hemorrhage, unspecified (3) Tobacco use Status: Chronic (4) Diabetes mellitus Status: Chronic Qualifiers: Diabetes mellitus type: type 2 Diabetes mellitus prison insulin use: without prison use Diabetes mellitus complication status: with unspecified complications Qualified Code(s): E11.8 - Type 2 diabetes mellitus with unspecified complications (5) Hypertension Status: Chronic Qualifiers: Hypertension type: essential hypertension Qualified Code(s): I10 - Essential (primary) hypertension (6) Pancreatic cancer Status: Chronic Qualifiers: Pancreatic malignancy location: unspecified Qualified Code(s): C25.9 - Malignant neoplasm of pancreas, unspecified - Subjective Interval history: The patient is alert and comfortable. He denies any abdominal, flank or back or inguinal pain. He denies chest pain or shortness of breath. He reports no complaints overnight. - Physical Examination General: Present: Conversant, No Apparent Distress HEENT: Present: Pupils equal Cardiac: Present: Reg Rate and Rhythm Lungs: Present: Normal Breath Sounds Neuro: Present: Alert and responsive, Motor nerves grossly intact, Sensory nerves grossly intact Vascular: Present: Normal capillary refill, Pulse, normal, Surgical incisions (No hematoma). Absent: Cyanosis, Edema Abdomen: Present: Soft, Non-tender Skin: Present: No rashes noted on visualized skin Results 01/29/18 04:50 01/29/18 04:50 Consult Discharge Plan - Plan Referrals: Sona Quezada CNP [Primary Care Provider] - 02/05/18 10:15 am Prescriptions: Enoxaparin [Lovenox] 90 mg SQ Q12HR #56 syr Enoxaparin [Lovenox] 140 mg SQ DAILY 7 Days #7 syr
== END 2018-01-29 18:40 | disposition home or self-care (01) ==
LOC: EMEROOARM 17:15 → 2NENU 17:15 → SUATTDRO 19:43 → 2NENU 20:30
PROVIDERS: ADMIT Family Medicine; ATTEND Internal Medicine